=== PATIENT | female | born 1990 | race Caucasian/White ===

== ENCOUNTER → 2016-07-26 | Outpatient (CLI) | payer OTHER ==
--- NOTE | 2016-07-27 16:52 | XR ---
EXAMINATION TYPE: XR knee complete RT DATE OF EXAM: 07/26/2016 9:57 AM COMPARISON: NONE HISTORY: 26 year-old female right knee pain, chondromalacia TECHNIQUE: 3 views FINDINGS: Joint spaces are well-maintained. No acute fracture, subluxation, dislocation. Trace knee joint effus ion may be present. Extensor mechanism is intact. IMPRESSION: No acute osseous abnormality seen. There may be a trace knee joint effusion.
== END | disposition home or self-care (01) ==
LOC: RADXRYALE 08:56
PROVIDERS: ATTEND Physician Assistant Medical
DX: M22.41 Chondromalacia patellae, right knee (principal)

== ENCOUNTER 2017-07-31 10:29 | Outpatient (CLI) | payer OTHER ==
[2017-07-31 11:25] LABS: Appearance,Urine Cloudy (Clear); Bacteria,Urine Many /hpf; Bilirubin,Urine Negative (Negative); Blood,Urine Negative (Negative); Color,Urine Light Yellow; Glucose,Urine (UA) Negative (Negative); Ketones,Urine Negative (Negative); Leukocyte Esterase,Urine Moderate (Negative); Mucus,Urine Rare /hpf; Nitrite,Urine Negative (Negative); PH, Urine 7.5 (5.0-8.0); Protein,Urine Negative (Negative); RBC,Urine 6 /hpf (0-5); Specific Gravity,Urine 1.007 (1.001-1.035); Squamous Epithelial Cell,Urine 30 /hpf (0-4); Urobilinogen,Urine <2.0 mg/dL (<2.0); WBC,Urine 9 /hpf (0-5)
[2017-07-31 11:40] VITALS: BP 118/65; PULSE 92; RESP 18; TEMP 97
--- NOTE | 2017-07-31 20:15 | P.MSEPDOC ---
Presenting Problems - Arrival Data Date of Arrival on Unit: 07/31/17 Time of Arrival on Unit: 10:29 Mode of Transport: Ambulatory - Complaint OB-Reason for Admission/Chief Complaint: Pain Medical History - Information : 2 Para: 0 Term: 0 : 0 Abortions: Spontaneous or Elective: 0 Number of Living Children: 0 - Gestational Age Gestational Age by JOSIE (wks/days): 21 Weeks and 4 Days Review of Systems - Review of Systems Constitutional: No problems Breast: No problems ENT: No problems Cardiovascular: No problems Respiratory: No problems Gastrointestinal: No problems Genitourinary: No problems Musculoskeletal: No problems Neurological: No problems Skin: No problems Vital Signs - Temperature Temperature: 97.0 F Temperature Source: Temporal Artery Scan - Pulse Right Brachial Pulse Rate: 92 - Respirations Respiratory Rate: 18 Oxygen Delivery Method: Room Air - Blood Pressure Right Arm Blood Pressure: 118/65 Blood Pressure Mean: 82 Blood Pressure Source: Automatic Cuff Medical Screen Scoring (Pre) - Cervical Exam Dilation: Exam Deferred Effacement: Exam Deferred Membranes: Intact - Uterine Contractions Frequency: N/A Duration: N/A Intensity: N/A - Maternal Vital Signs Maternal Temperature: N/A Maternal Respirations: N/A - Maternal Trauma Maternal Trauma: N/A - Assessment Heart Rate - NICHD Category: Category I (Normal) = 0 - Total Score Total Score (Pre): 0 - Level of Risk Level of Risk: N/A Physician Notification (Pre) - Physician Notified Physician Notified Date: 07/31/17 Physician Notified Time: 11:35 Physician/Practitioner Notifed:: Dr. Vidal Spoke With: Dr. Vidal New Order Received: Yes - Notification Comment Comment: send order for urine culture, may discharge pt home follow up in office at scheduled appt on August 15 at scheduled appt Medical Screen Scoring (Post) - Cervical Exam Dilation: 1-3 cm = 1 Effacement: More than 50% = 2 Membranes: Intact - Uterine Contractions Frequency: > 5 minutes apart = 1 Duration: > 40 seconds = 2 Intensity: N/A - Maternal Vital Signs Maternal Temperature: N/A Maternal Blood Pressure: N/A Signs of Preeclampsia: N/A - Assessment Heart Rate: 140 Heart Rate - NICHD Category: Category I (Normal) = 0 NST: Reactive Position: N/A Station: N/A - Total Score Total Score (Post): 6 - Post Treatment Level of Risk Post Treatment Level of Risk: Medium (6-9) Physician Notification (Post) - Physician Notified Physician Notified Date: 07/31/17 Physician Notified Time: 10:49 Physician/Practitioner Notified:: Dr. Judge Spoke With: Dr. Judge New Order Received: Yes - Notification Comment Comment: discharge pt home, follow up in office tomorrow at scheduled appt Disposition - Disposition OB Disposition: Triage, Discharge to home, Written follow up instructions reviewed Discharge Date: 07/31/17 Discharge Time: 11:50 I agree with the RN Medical Screening Exam: Yes Risk & Benefit of care provided described in d/c instruction: Yes Diagnosis: UNSPECIFIED ABDOMINAL PAIN
== END 2017-07-31 11:50 | disposition home or self-care (01) ==
LOC: FBPOP 10:29
PROVIDERS: ATTEND Obstetrics & Gynecology
DX: O99.89 Other specified diseases and conditions complicating pregnancy, childbirth and the puerperium (principal); R10.9 Unspecified abdominal pain; Z3A.21 21 weeks gestation of pregnancy
CPT/HCPCS: 59025; 81001; 87086; 99213

== ENCOUNTER 2017-08-03 21:16 | Emergency (ER) | payer OTHER ==
[2017-08-03 21:43] VITALS: BP 119/58; PULSE 99; RESP 18; TEMP 97.4
--- NOTE | 2017-08-03 22:18 | ED ---
General Adult HPI - General Chief complaint: Upper Respiratory Infection Stated complaint: Vomiting Time Seen by Provider: 08/03/17 21:44 Source: patient, RN notes reviewed Mode of arrival: ambulatory Limitations: no limitations - History of Present Illness Initial comments: 27-year-old female presents to the emergency room for a chief complaint of cough times one week. Patient is currently 22 weeks . Patient states she has been coughing up phlegm and has nasal congestion. Patient states she has had low-grade fevers at home. Patient states she also has a sore throat but has been swabbed for strep 3 days ago and was negative and does not want another swab. Patient has been taking Robitussin and benadryl as prescribed by her family doctor. Patient denies shortness of breath or difficulty breathing. Patient denies any related complaints. Patient has no other complaints at this time including shortness of breath, chest pain, abdominal pain, nausea or vomiting, headache, or visual changes. - Related Data Home Medications Medication Instructions Recorded Confirmed Albuterol Inhaler [Ventolin Hfa 1 puff INHALATION Q4H PRN 09/23/13 07/31/17 Inhaler] Pnv No.95/Ferrous Fum/Folic AC 1 each PO DAILY 07/31/17 07/31/17 [ Multivitamin Tablet] Allergies Allergy/AdvReac Type Severity Reaction Status Date / Time methylphenidate HCl Allergy Unknown Verified 08/03/17 21:43 [From Metadate CD] sulfamethoxazole Allergy Rash/Hives Verified 08/03/17 21:43 [From Bactrim] trimethoprim [From Bactrim] Allergy Rash/Hives Verified 08/03/17 21:43 cephalexin [From Keflex] AdvReac Nausea & Verified 08/03/17 21:43 Vomiting Review of Systems ROS Statement: Those systems with pertinent positive or pertinent negative responses have been documented in the HPI. ROS Other: All systems not noted in ROS Statement are negative. Past Medical History Past Medical History: No Reported History Additional Past Medical History / Comment(s): hypoglycemia History of Any Multi-Drug Resistant Organisms: None Reported Past Surgical History: Tonsillectomy Additional Past Surgical History / Comment(s): oral surgery Past Psychological History: Anxiety Smoking Status: Never smoker Past Alcohol Use History: None Reported Past Drug Use History: None Reported General Exam Limitations: no limitations General appearance: alert, in no apparent distress Eye exam: Present: normal appearance, PERRL, EOMI. Absent: scleral icterus, conjunctival injection, periorbital swelling ENT exam: Present: normal exam, normal oropharynx, mucous membranes moist, TM's normal bilaterally Neck exam: Present: normal inspection, full ROM. Absent: tenderness, meningismus, lymphadenopathy, thyromegaly Respiratory exam: Present: normal lung sounds bilaterally. Absent: respiratory distress, wheezes, rales, rhonchi, stridor Cardiovascular Exam: Present: regular rate, normal rhythm, normal heart sounds. Absent: systolic murmur, diastolic murmur, rubs, gallop, clicks Course Vital Signs 08/03/17 21:40 Temperature 97.4 F L Pulse Rate 99 Respiratory 18 Rate Blood Pressure 119/58 O2 Sat by Pulse 99 Oximetry Medical Decision Making - Medical Decision Making 27-year-old female presents to the emergency department for a chief complaint of productive cough for one week. patient is 22 weeks . Patient also has a sore throat but was already swabbed for strep which was negative. She does not want to be swabbed again. No fevers in the emergency department. On exam lungs are clear. Throat is nonerythematous. Patient appears sightly congested. No redness or swelling in the facial sinuses. Patient has been taking Robitussin and Benadryl. Patient is upset because she is missing work. X-ray was ordered of the chest which shows no acute abnormalities or pneumonias. Patient was shielded. Patient was educated that this is likely an upper respiratory viral infection which may last for up to another week. Patient is upset we are not giving her an antibiotic, as her other doctor also did not give her one. However, at this point antibiotics are not indicated. I explained to her that we are trying to prevent exposure to the fetus of unnecessary medications and she is appreciative of that. patient will continue benadryl and robitussin given by another provider. Patient agrees to follow up with COLOR SEPARATION PHOTOGRAPHER. She will return to the emergency Department if she has any worsening symptoms or high fevers. Disposition Clinical Impression: Upper respiratory infection Disposition: HOME SELF-CARE Condition: Good Instructions: Upper Respiratory Infection (ED) Additional Instructions: Please take medications given to by her COLOR SEPARATION PHOTOGRAPHER. Please return to the emergency department if symptoms worsen or you develop high fevers. Otherwise follow-up with [facility] SEPARATION PHOTOGRAPHER. Is patient prescribed a controlled substance at d/c from ED?: No Referrals: Gerg Grewal DO [Primary Care Provider] - 1-2 days Time of Disposition: 22:42
--- NOTE | 2017-08-03 22:24 | XR ---
EXAMINATION TYPE: XR chest 2V DATE OF EXAM: 08/03/2017 COMPARISON: NONE HISTORY: Cough and congestion TECHNIQUE: Frontal and lateral views of the chest are obtained. FINDINGS: Heart and mediastinum are normal. Lungs are clear. Diaphragm is normal. Bony thorax appear s normal. IMPRESSION: Normal chest
== END 2017-08-03 22:49 | disposition home or self-care (01) ==
LOC: EC 21:16
DX: O99.512 Diseases of the respiratory system complicating pregnancy, second trimester (principal); J06.9 Acute upper respiratory infection, unspecified; Z3A.22 22 weeks gestation of pregnancy; Z88.1 Allergy status to other antibiotic agents; Z88.2 Allergy status to sulfonamides; Z88.8 Allergy status to other drugs, medicaments and biological substances
CPT/HCPCS: 71046; 99283

== ENCOUNTER 2017-10-12 15:18 | Outpatient (CLI) | payer OTHER ==
[2017-10-12 15:52] VITALS: BP 125/70; PULSE 91; RESP 17; TEMP 97.8
[2017-10-12 16:04] LABS: Appearance,Urine Cloudy (Clear); Bilirubin,Urine Negative (Negative); Blood,Urine Negative (Negative); Color,Urine Light Yellow; Glucose,Urine (UA) Negative (Negative); Ketones,Urine Negative (Negative); Leukocyte Esterase,Urine Negative (Negative); Nitrite,Urine Negative (Negative); PH, Urine 7.5 (5.0-8.0); Protein,Urine Negative (Negative); RBC,Urine 1 /hpf (0-5); Specific Gravity,Urine 1.006 (1.001-1.035); Squamous Epithelial Cell,Urine 18 /hpf (0-4); Urobilinogen,Urine <2.0 mg/dL (<2.0); WBC,Urine <1 /hpf (0-5)
--- NOTE | 2017-10-13 08:31 | P.MSEPDOC ---
Presenting Problems - Arrival Data Date of Arrival on Unit: 10/12/17 Time of Arrival on Unit: 15:18 Mode of Transport: Ambulatory - Complaint OB-Reason for Admission/Chief Complaint: Rule Out PROM Comment: pt here with c/o large gush of fluid after sneezing around 1430 today, pt. unsure if it was urine or rom, pt reports + fm, denies vb, denies complications with. , reports occasional cramping in lower abd late began today, pt unsure if they. are contractions reporting they only last a few seconds when they occur, pt denies. intercourse in last 24 hours Medical History - Information : 2 Para: 0 Term: 0 : 0 Abortions: Spontaneous or Elective: 1 Number of Living Children: 0 - Gestational Age Gestational Age by JOSIE (wks/days): 32 Weeks and 0 Days - History Complications: Smoker Review of Systems - Review of Systems Constitutional: No problems Breast: No problems ENT: No problems Cardiovascular: No problems Respiratory: No problems Gastrointestinal: No problems Genitourinary: No problems Musculoskeletal: No problems Neurological: No problems Skin: No problems Vital Signs - Temperature Temperature: 97.8 F Temperature Source: Temporal Artery Scan - Pulse Right Brachial Pulse Rate: 91 Pulse Assessment Method: Automatic Cuff - Respirations Respiratory Rate: 17 Oxygen Delivery Method: Room Air O2 Sat by Pulse Oximetry: 97 - Blood Pressure Right Arm Blood Pressure: 125/70 Blood Pressure Mean: 88 Blood Pressure Source: Automatic Cuff Medical Screen Scoring (Pre) - Cervical Exam Dilation: 0 cm = 0 Effacement: Exam Deferred Membranes: Intact - Uterine Contractions Frequency: N/A Duration: N/A Intensity: N/A - Maternal Vital Signs Maternal Temperature: N/A Maternal Blood Pressure: N/A Signs of Preeclampsia: N/A Maternal Respirations: N/A - Pain Assessment Pain Location and Character: Abdomen Pain Scale Used: Numeric (1 - 10) Pain Intensity: 4 Pain Management Goal: 3 Pain Description: *Acute, Aching, Crushing Pain Radiation Location: none Pain Frequency: Occasional Pain Duration: 1 Pain Duration Units: Hours Pain Behavior: None Exhibited Pain Aggravating Factors: None - Maternal Trauma Maternal Trauma: N/A - Assessment Baseline FHR: 130 Heart Rate - NICHD Category: Category I (Normal) = 0 NST: Reactive Position: N/A Station: N/A - Total Score Total Score (Pre): 0 - Level of Risk Level of Risk: Low (0-5) Physician Notification (Pre) - Physician Notified Physician Notified Date: 10/12/17 Physician Notified Time: 16:12 Physician/Practitioner Notifed:: Dr Joe Spoke With: Dr Joe New Order Received: Yes (discharge home) - Notification Comment Comment: amnisure results -, u/a results -, pt reports decrease in pain at this time Disposition - Disposition OB Disposition: Discharge to home, Written follow up instructions reviewed Discharge Date: 10/12/17 Discharge Time: 16:20 I agree with the RN Medical Screening Exam: Yes Risk & Benefit of care provided described in d/c instruction: Yes Diagnosis: FALSE LABOR BEFORE 37 COMPLETED WEEKS OF GEST, THIRD TRI
== END 2017-10-12 16:20 | disposition home or self-care (01) ==
LOC: FBPOP 15:18
PROVIDERS: ATTEND Obstetrics & Gynecology
DX: O47.03 False labor before 37 completed weeks of gestation, third trimester (principal); O99.333 Smoking (tobacco) complicating pregnancy, third trimester; Z3A.32 32 weeks gestation of pregnancy
CPT/HCPCS: 81001

== ENCOUNTER 2017-11-21 05:55 | Inpatient (IN) | payer OTHER ==
[2017-11-21] MEDS ORDERED: AMPICILLIN 2,000 MG in SODIUM CHLORIDE 0.9% 100 ML IVPB STA (06:26)
[2017-11-21] MEDS ORDERED: METHYLERGONOVINE 0.2 MG/ML 1 ML AMP IM PRN (06:26)
[2017-11-21] MEDS ORDERED: CARBOPROST TROMETHAMINE 250 MCG/ML 1 ML AMP IM PRN (06:26)
[2017-11-21] MEDS ORDERED: TERBUTALINE 1 MG/ML VIAL SQ PRN (06:26)
[2017-11-21] MEDS ORDERED: LIDOCAINE 1% (PF) 10 MG/ML (30 ML SDV) SQ PRN (06:26)
[2017-11-21] MEDS ORDERED: OXYTOCIN 10 UNIT/ML 1 ML VIAL IM PRN (06:26)
[2017-11-21] MEDS ORDERED: OXYTOCIN 20 UNITS/1000 ML NS 1,000 ML IV SCH (06:26)
[2017-11-21] MEDS: LACTATED RINGERS 1,000 ML IV SCH ×4 (06:30→21:54)
[2017-11-21 06:33] VITALS: BMI 27.4
[2017-11-21 07:04] LABS: Basophils # (A) 0.1 k/uL (0-0.2); Basophils % (A) 1 %; Eosinophils # (A) 0.2 k/uL (0-0.7); Eosinophils % (A) 2 %; HCT 35.4 % (34.0-46.0); HGB 11.2 gm/dL (11.4-16.0); Lymphocytes # (A) 2.4 k/uL (1.0-4.8); Lymphocytes % (A) 23 %; MCHC 31.6 g/dL (31.0-37.0); MCV 88.5 fL (80.0-100.0); Mean Platelet Volume 9.9; Monocytes # (A) 0.8 k/uL (0-1.0); Monocytes % (A) 7 %; Neutrophils # (A) 6.8 k/uL (1.3-7.7); Neutrophils % (A) 65 %; Platelet Count 214 k/uL (150-450); RDW 13.8 % (11.5-15.5); WBC 10.4 k/uL (3.8-10.6)
[2017-11-21] MEDS: AMPICILLIN 1,000 MG in SODIUM CHLORIDE 0.9% 50 ML IVPB SCH ×3 (10:56→19:17)
[2017-11-21] MEDS: BUTORPHANOL 1 MG/ML 1 ML VIAL IV PRN ×2 (12:33→15:17)
--- NOTE | 2017-11-21 12:50 | P.HPOB ---
History of Present Illness H&P Date: 11/21/17 Chief Complaint: Induction of labor 27-year-old presents at 37 weeks and 5 days for induction of labor due to cholestasis of . Her cervix is 1-2 cm dilated, 70% effaced, -2 station. She is harsha irregularly. heart tones were in 130-135 with moderate variability and reactive. Review of Systems All systems: negative Constitutional: Denies chills, Denies fever Eyes: denies blurred vision, denies pain Ears, nose, mouth and throat: Denies headache, Denies sore throat Cardiovascular: Denies chest pain, Denies shortness of breath Respiratory: Denies cough Gastrointestinal: Denies abdominal pain, Denies diarrhea, Denies nausea, Denies vomiting Genitourinary: Denies dysuria, Denies hematuria Musculoskeletal: Denies myalgias Integumentary: Denies pruritus, Denies rash Neurological: Denies numbness, Denies weakness Psychiatric: Denies anxiety, Denies depression Endocrine: Denies fatigue, Denies weight change Past Medical History Past Medical History: No Reported History Additional Past Medical History / Comment(s): hypoglycemia, obstetrics history: This is her first . She's had care with me since the first trimester. She weaned her for Adderall in the first couple weeks of her . She was diagnosed with cholestasis of at 32 weeks gestation. History of Any Multi-Drug Resistant Organisms: None Reported Past Surgical History: Tonsillectomy Additional Past Surgical History / Comment(s): oral surgery Past Anesthesia/Blood Transfusion Reactions: No Reported Reaction Past Psychological History: Anxiety Smoking Status: Never smoker Past Alcohol Use History: None Reported Past Drug Use History: None Reported - Past Family History Mother Family Medical History: Asthma, Thyroid Disorder Medications and Allergies Home Medications Medication Instructions Recorded Confirmed Type Pnv No.95/Ferrous Fum/Folic AC 1 tab PO DAILY 11/04/17 11/21/17 History [ Multivitamin Tablet] Ranitidine HCl [Zantac] 150 mg PO BID 11/04/17 11/21/17 History Ursodiol 300 mg PO BID 11/04/17 11/21/17 History diphenhydrAMINE [Benadryl] 25 mg PO DIRECTED 11/04/17 11/21/17 History Allergies Allergy/AdvReac Type Severity Reaction Status Date / Time methylphenidate HCl Allergy Unknown Verified 11/21/17 06:26 [From Metadate CD] sulfamethoxazole Allergy Rash/Hives Verified 11/21/17 06:26 [From Bactrim] trimethoprim [From Bactrim] Allergy Rash/Hives Verified 11/21/17 06:26 cephalexin [From Keflex] AdvReac Nausea & Verified 11/21/17 06:26 Vomiting Exam Osteopathic Statement: *. No significant issues noted on an osteopathic structural exam other than those noted in the History and Physical/Consult. Vital Signs Temp Pulse Resp BP Pulse Ox 11/21/17 06:27 97.6 F 83 16 142/96 98 Intake and Output 11/20/17 11/21/17 11/21/17 22:59 06:59 14:59 Other: Weight 68.039 kg Heart: Regular rate and rhythm Lungs: Clear to auscultation bilaterally Abdomen: Soft, nontender Extremities: Negative Homans sign Results Result Diagrams: 11/21/17 06:25 Abnormal Lab Results - Last 24 Hours (Table) 11/21/17 Range/Units 06:25 Hgb 11.2 L (11.4-16.0) gm/dL Assessment and Plan (1) Normal labor Current Visit: Yes Status: Acute Code(s): O80 - ENCOUNTER FOR FULL-TERM UNCOMPLICATED DELIVERY; Z37.9 - OUTCOME OF DELIVERY, UNSPECIFIED SNOMED Code(s ): 81001517 Plan: 1. Induction of labor with amniotomy and Pitocin 2. Anticipate normal vaginal delivery 3. Antibiotics for GBS prophylaxis
[2017-11-21] MEDS ORDERED: fentaNYL (PF) 50 MCG/ML 5 ML AMP ONE (17:04)
[2017-11-21] MEDS ORDERED: SODIUM CHLORIDE 0.9% 100 ML BAG ONE (17:04)
[2017-11-21] MEDS ORDERED: ROPIVACAINE 5MG/ML 20ML VIAL ONE (17:04)
[2017-11-21] MEDS ORDERED: ROPIVACAINE 100 MG, fentaNYL (PF) 200 MCG in SODIUM CHLORIDE 0.9% 76 ML EPIDURAL ONE (18:00)
[2017-11-22] MEDS ORDERED: diphenhydrAMINE 25 MG CAP PO PRN (01:14)
[2017-11-22] MEDS ORDERED: SIMETHICONE 80 MG CHEWABLE PO PRN (01:14)
[2017-11-22] MEDS ORDERED: ACETAMINOPHEN TAB 325 MG TAB PO PRN (01:14)
[2017-11-22] MEDS ORDERED: HYDROcodone/APAP 5-325MG 1 EACH TAB PO PRN (01:14)
[2017-11-22] MEDS ORDERED: BENZOCAINE/MENTHOL SPRAY 1 GM/SPRAY AEROSOL TOPICAL PRN (01:14)
[2017-11-22] MEDS ORDERED: LANOLIN CREAM 5 GM TUBE TOPICAL PRN (01:14)
[2017-11-22] MEDS ORDERED: diphenhydrAMINE 50 MG CAP PO PRN (01:14)
[2017-11-22] MEDS ORDERED: ZOLPIDEM 5 MG TAB PO PRN (01:14)
[2017-11-22] MEDS ORDERED: HYDROCORTISONE 2.5% RECTAL CREAM 30 GM TUBE RECTAL PRN (01:14)
[2017-11-22] MEDS ORDERED: WITCH HAZEL 1 EACH MED..PAD TOPICAL PRN (01:14)
[2017-11-22] MEDS ORDERED: diphenhydrAMINE 50 MG/ML 1 ML VIAL IVP PRN ×2 (01:14)
[2017-11-22] MEDS ORDERED: OXYTOCIN 20 UNITS/1000 ML NS 1,000 ML IV SCH (01:15)
--- NOTE | 2017-11-22 01:19 | P.PROBDLV ---
Vaginal Delivery Note - . Vaginal Delivery Note: 27-year-old presents at 37 weeks and 5 days for induction of labor due to cholestasis of . Her cervix was 1-2 cm dilated, 80% effaced, and -2 station. She was harsha irregularly. heart tones 130-135 with moderate variability and reactive. Amniotomy was performed at 7:45 AM, clear fluid noted. Pitocin had been started. Her cervix changed slowly through the day. She did get an epidural around 5 PM, when she was 4 cm dilated. Her cervix was completely dilated at 12:17 AM. She pushed, and delivered a viable male infant over intact perineum under epidural anesthesia at 12:44 AM. Head delivered OA, anterior shoulder delivered gentle downward guidance followed by posterior shoulder and rest of body. Nose and mouth bulb suctioned, cord clamped and cut, infant placed mother's abdomen. Apgars 9, 9, weight 7 lbs. 2 oz. Placenta delivered spontaneously, intact with three-vessel cord. Vagina, cervix, perineum inspected. Second-degree midline laceration was repaired with 2-0 Vicryl. Estimated blood loss 200 mL. Mother and baby in stable condition.
[2017-11-22] MEDS: IBUPROFEN 600 MG TAB PO PRN ×4 (02:05→20:15)
[2017-11-22] MEDS: AMPICILLIN 1,000 MG in SODIUM CHLORIDE 0.9% 50 ML IVPB SCH (02:10)
[2017-11-22] MEDS ORDERED: METHYLERGONOVINE 0.2 MG/ML 1 ML AMP IM PRN (04:58)
[2017-11-22] MEDS ORDERED: TERBUTALINE 1 MG/ML VIAL SQ PRN (04:58)
[2017-11-22] MEDS: SENNOSIDES-DOCUSATE SODIUM 1 EACH TAB PO SCH ×2 (07:46→20:15)
[2017-11-22 09:16] LABS: HCT 28.2 % (34.0-46.0); MCH 28.8 pg (25.0-35.0); MCHC 32.7 g/dL (31.0-37.0); Mean Platelet Volume 10.2; Platelet Count 190 k/uL (150-450); RBC 3.21 m/uL (3.80-5.40); RDW 13.7 % (11.5-15.5)
[2017-11-22 09:18] LABS: HGB 9.2 gm/dL (11.4-16.0)
[2017-11-22] MEDS: URSODIOL 300 MG CAP PO SCH (19:54)
[2017-11-23 08:19] VITALS: BP 135/78; PULSE 91; RESP 16; TEMP 98.1
[2017-11-23] MEDS: SENNOSIDES-DOCUSATE SODIUM 1 EACH TAB PO SCH (08:25)
[2017-11-23] MEDS: URSODIOL 300 MG CAP PO SCH (08:25)
--- NOTE | 2017-11-26 08:19 | P.DS ---
Providers Date of admission: 11/21/17 05:55 Expected date of discharge: 11/23/17 Attending physician: Nasra Vidal Primary care physician: Stated None - Discharge Diagnosis(es) (1) Normal labor Status: Resolved (2) Normal vaginal delivery Status: Acute Hospital Course: Patient presented for induction of labor. She underwent a normal vaginal delivery. she did have some uterine atony and vaginal bleeding. She received 1 dose of Methergine. Her hemoglobin went from 11.2-9.2. Her anemia was asymptomatic. She will be discharged home day #1 in stable condition to follow-up with me in 6 weeks. Patient Condition at Discharge: Good Plan - Discharge Summary New Discharge Prescriptions: New Ibuprofen [Motrin] 600 mg PO Q6HR PRN #30 tab PRN Reason: Mild Pain Or Fever >= 100.5 No Action Ursodiol 300 mg PO BID Ranitidine HCl [Zantac] 150 mg PO BID Pnv No.95/Ferrous Fum/Folic AC [ Multivitamin Tablet] 1 tab PO DAILY diphenhydrAMINE [Benadryl] 25 mg PO DIRECTED Discharge Medication List Pnv No.95/Ferrous Fum/Folic AC [ Multivitamin Tablet] 1 tab PO DAILY [History] Ranitidine HCl [Zantac] 150 mg PO BID 11/04/17 [History] Ursodiol 300 mg PO BID 11/04/17 [History] diphenhydrAMINE [Benadryl] 25 mg PO DIRECTED 11/04/17 [History] Ibuprofen [Motrin] 600 mg PO Q6HR PRN #30 tab 11/23/17 [Rx] Follow up Appointment(s)/Referral(s): Nasra Vidal DO [Doctor of Osteopathic Medicine] - 6 Weeks Discharge Disposition: HOME SELF-CARE
== END 2017-11-23 13:42 | disposition home or self-care (01) | DRG 775 ==
LOC: 4FBP 05:55
PROVIDERS: ADMIT Obstetrics & Gynecology; ATTEND Obstetrics & Gynecology
PROC: 10E0XZZ Delivery of Products of Conception, External Approach (ICD-10-PCS; principal; 2017-11-22)
PROC: 0KQM0ZZ Repair Perineum Muscle, Open Approach (ICD-10-PCS; 2017-11-22)
PROC: 3E033VJ Introduction of Other Hormone into Peripheral Vein, Percutaneous Approach (ICD-10-PCS; 2017-11-22)
PROC: 10907ZC Drainage of Amniotic Fluid, Therapeutic from Products of Conception, Via Natural or Artificial Opening (ICD-10-PCS; 2017-11-22)
PROC: 00HU33Z Insertion of Infusion Device into Spinal Canal, Percutaneous Approach (ICD-10-PCS; 2017-11-22)
PROC: 3E0R3BZ Introduction of Anesthetic Agent into Spinal Canal, Percutaneous Approach (ICD-10-PCS; 2017-11-22)
DX: O26.62 Liver and biliary tract disorders in childbirth (principal); K83.1 Obstruction of bile duct; Z37.0 Single live birth; O99.02 Anemia complicating childbirth; O62.2 Other uterine inertia; O70.1 Second degree perineal laceration during delivery; O99.344 Other mental disorders complicating childbirth; F41.9 Anxiety disorder, unspecified; Z3A.37 37 weeks gestation of pregnancy; Z82.5 Family history of asthma and other chronic lower respiratory diseases; Z83.49 Family history of other endocrine, nutritional and metabolic diseases; Z88.1 Allergy status to other antibiotic agents; Z88.2 Allergy status to sulfonamides; Z88.8 Allergy status to other drugs, medicaments and biological substances
CPT/HCPCS: 85025; 85027

== ENCOUNTER 2017-11-27 13:47 | Emergency (ER) | payer OTHER ==
[2017-11-27 14:03] VITALS: RESP 18
--- NOTE | 2017-11-27 14:43 | ED ---
Extremity Problem HPI - General Chief complaint: Extremity Problem,Nontraumatic Stated complaint: poss blood clot Time Seen by Provider: 11/27/17 14:11 Source: patient, RN notes reviewed Mode of arrival: ambulatory Limitations: no limitations - History of Present Illness Initial comments: This is a 27-year-old female who presents to the emergency department with chief complaint of possible blood clot. Patient states that she had a vaginal delivery last . She states that since that time she has been experiencing sharp pains in both of her calves. She states that this is normal for her. However, she states that she is also experiencing a sharp stabbing pain that comes and goes in her left inner thigh. She states that there is an area of tenderness. She states that the pain lasts anywhere from 2 minutes at a time to 5 minutes at a time. She states that she contacted her PATIENT TRANSPORTATION DRIVER's office and they suggested she reports the emergency department for an ultrasound to rule out blood clot. Patient denies any recent fevers or chills, chest pain shortness of breath, abdominal pain, nausea or vomiting. Patient is not taking control as she is breast-feeding. - Related Data Home Medications Medication Instructions Recorded Confirmed Pnv No.95/Ferrous Fum/Folic AC 1 tab PO DAILY 11/04/17 11/21/17 [ Multivitamin Tablet] Ranitidine HCl [Zantac] 150 mg PO BID 11/04/17 11/21/17 Ursodiol 300 mg PO BID 11/04/17 11/21/17 diphenhydrAMINE [Benadryl] 25 mg PO DIRECTED 11/04/17 11/21/17 Previous Rx's Medication Instructions Recorded Ibuprofen [Motrin] 600 mg PO Q6HR PRN #30 tab 11/23/17 Allergies Allergy/AdvReac Type Severity Reaction Status Date / Time methylphenidate HCl Allergy Unknown Verified 11/27/17 14:03 [From Metadate CD] sulfamethoxazole Allergy Rash/Hives Verified 11/27/17 14:03 [From Bactrim] trimethoprim [From Bactrim] Allergy Rash/Hives Verified 11/27/17 14:03 cephalexin [From Keflex] AdvReac Nausea & Verified 11/27/17 14:03 Vomiting Review of Systems ROS Statement: Those systems with pertinent positive or pertinent negative responses have been documented in the HPI. ROS Other: All systems not noted in ROS Statement are negative. Past Medical History Past Medical History: No Reported History Additional Past Medical History / Comment(s): hypoglycemia, obstetrics history: This is her first . She's had care with me since the first trimester. She weaned her for Adderall in the first couple weeks of her . She was diagnosed with cholestasis of at 32 weeks gestation. History of Any Multi-Drug Resistant Organisms: None Reported Past Surgical History: Tonsillectomy Additional Past Surgical History / Comment(s): oral surgery Past Anesthesia/Blood Transfusion Reactions: No Reported Reaction Past Psychological History: Anxiety Smoking Status: Never smoker Past Alcohol Use History: None Reported Past Drug Use History: None Reported - Past Family History Mother Family Medical History: Asthma, Thyroid Disorder General Exam - General Exam Comments Initial Comments: General: Awake and alert, well-developed; in no apparent distress. HEENT: Head atraumatic, normocephalic. Pupils are equal, round and reactive to light. Extraocular movements intact. Oropharynx moist without erythema or exudate. Neck: Supple. Normal ROM. Cardiovascular: Regular rate and rhythm. No murmurs, rubs or gallops. Chest symmetrical. Respiratory: Lungs clear to auscultation bilaterally. No wheezes, rales or rhonchi. Normal respiratory effort with no use of accessory muscles. Musculoskeletal: Normal ROM, no tenderness bilateral upper and lower extremities. Negative Homans sign. No calf tenderness bilaterally. No swelling, erythema or ecchymosis of bilateral lower extremities. Ambulating normally. Skin: Regal, warm and dry without rashes or lesions. Neurological: Alert and oriented x3. CN II-XII grossly intact. Speech is fluent and answers are appropriate. No focal neuro deficits. Psychiatric: Normal mood and affect. No overt signs of depression or anxiety noted. Limitations: no limitations Course Vital Signs 11/27/17 11/27/17 13:59 15:45 Temperature 98.0 F 97.1 F L Pulse Rate 98 85 Respiratory 18 18 Rate Blood Pressure 128/72 120/67 O2 Sat by Pulse 100 100 Oximetry Medical Decision Making - Medical Decision Making This is a 27-year-old female who presents to the emergency department with chief complaint of possible blood clot. Patient's PATIENT TRANSPORTATION DRIVER office recommended she come to the emergency department for evaluation of possible blood clot. Patient had vaginal delivery last and has been having a pain in her left inner thigh. Ultrasound was obtained which revealed no evidence for an acute DVT. Her vital signs are stable and she is in no acute distress. She will be discharged home at this time. She is in agreement and voices understanding. All questions answered. - Radiology Data Radiology results: report reviewed Ultrasound venous Doppler duplex left lower extremity impression: No evident deep venous thrombosis at or above the left knee. Disposition Clinical Impression: Right leg pain Disposition: HOME SELF-CARE Condition: Good Instructions: Leg Pain (ED) Additional Instructions: Please follow up with primary care provider within 1-2 days. Return to emergency department if symptoms should worsen or any concerns arise. Is patient prescribed a controlled substance at d/c from ED?: No Referrals: Greg Grewal DO [Primary Care Provider] - 1-2 days Time of Disposition: 15:30
--- NOTE | 2017-11-27 15:24 | US ---
EXAMINATION TYPE: US venous doppler duplex LE LT DATE OF EXAM: 11/27/2017 3:10 PM COMPARISON: NONE CLINICAL HISTORY: Pain. SIDE PERFORMED: Left TECHNIQUE: The lower extremity deep venous system is examined utilizing real time linear array sonog elizabeth with graded compression, doppler sonography and color-flow sonography. VESSELS IMAGED: External Iliac Vein (EIV) Common Femoral Vein Deep Femoral Vein Greater Saphenous Vein * Femoral Vein Popliteal Vein Small Saphenous Vein * Proximal Calf Veins (* superficial vessels) There is normal flow, compressibility, vascular waveforms. Left Leg: Negative for DVT IMPRESSION: No evident deep venous thrombosis at or above the left knee
[2017-11-27 15:48] VITALS: BP 120/67; PULSE 85; TEMP 97.1
== END 2017-11-27 15:45 | disposition home or self-care (01) ==
LOC: EC 13:47
DX: M79.604 Pain in right leg (principal); M79.652 Pain in left thigh; M79.661 Pain in right lower leg; M79.662 Pain in left lower leg; Z88.1 Allergy status to other antibiotic agents; Z88.2 Allergy status to sulfonamides; Z88.8 Allergy status to other drugs, medicaments and biological substances; Z79.899 Other long term (current) drug therapy
CPT/HCPCS: 99283

== ENCOUNTER → 2018-11-21 | Outpatient (CLI) | payer OTHER ==
--- NOTE | 2018-11-21 09:03 | US ---
EXAMINATION TYPE: US abdomen limited DATE OF EXAM: 11/21/2018 COMPARISON: CT 2012 CLINICAL HISTORY: R945 ABN LIVER FUNCTIONS. EXAM MEASUREMENTS: Liver Length: 13.8 cm Gallbladder Wall: 0.1 cm CBD: 0.2 cm Right Kidney: 10.3 x 4.4 x 3.7 cm Pancreas: wnl Liver: wnl Gallbladder: wnl Evidence for sonographic Nunes's sign: No CBD: wnl Right Kidney: wnl IMPRESSION: No suspicious intrahepatic mass or intrahepatic ductal dilatation.
== END | disposition home or self-care (01) ==
LOC: RADUSWWP 08:24
PROVIDERS: ATTEND Family Medicine
DX: R94.5 Abnormal results of liver function studies (principal)
CPT/HCPCS: 76705

== ENCOUNTER 2018-12-21 17:01 | Emergency (ER) | payer OTHER ==
[2018-12-21 17:35] LABS: Appearance,Urine Clear (Clear); Bilirubin,Urine Negative (Negative); Blood,Urine Small (Negative); Color,Urine Colorless; Glucose,Urine (UA) Negative (Negative); Ketones,Urine Negative (Negative); Leukocyte Esterase,Urine Negative (Negative); Nitrite,Urine Negative (Negative); PH, Urine 6.5 (5.0-8.0); Protein,Urine Negative (Negative); RBC,Urine <1 /hpf (0-5); Specific Gravity,Urine 1.001 (1.001-1.035); Squamous Epithelial Cell,Urine <1 /hpf (0-4); Urobilinogen,Urine <2.0 mg/dL (<2.0)
[2018-12-21] MEDS ORDERED: KETOROLAC 30 MG/ML 1 ML VIAL IVP ONE (17:43)
[2018-12-21] MEDS ORDERED: SODIUM CHLORIDE 0.9% 1,000 ML IV ONE (17:43)
--- NOTE | 2018-12-21 17:43 | ED ---
Female Urogenital HPI - General Chief complaint: Urogenital Stated complaint: Kidney pain, blood in urine Time Seen by Provider: 12/21/18 17:20 Source: patient Mode of arrival: ambulatory Limitations: no limitations - History of Present Illness Initial comments: Steffanie is a previously healthy 28-year-old female who presents to the ER today for evaluation of hematuria and left-sided flank pain. Patient reports that she woke this morning she had a single episode of hematuria, she didn't have any dysuria or urinary frequency with this. She states she's been drinking plenty of water, she states that again at work she had another episode of hematuria and then noted stabbing pain in her left flank. Pain was severe sharp last approximately 15 minutes and resolved prior to arrival. Patient no history of kidney stones. She does have a history of recurrent urinary tract infections but states that this doesn't seem like that at all. Patient states her menses ended yesterday, she has no concern for she's not been sexually active. She denies any vaginal discharge or concern for sexual transmitted infection. Last Menstrual Period: 12/13/18 - Related Data Home Medications Medication Instructions Recorded Confirmed Albuterol Sulfate [Ventolin HFA] 1 - 2 puff INHALATION RT-Q6H PRN 12/21/18 12/21/18 Dextroamphetamine/Amphetamine 30 mg PO BID 12/21/18 12/21/18 [Adderall] Loratadine [Claritin] 10 mg PO DAILY 12/21/18 12/21/18 Vienva 0.1/0.2mg 1 tab PO DAILY 12/21/18 12/21/18 Allergies Allergy/AdvReac Type Severity Reaction Status Date / Time methylphenidate HCl Allergy Unknown Verified 12/21/18 17:46 [From Metadate CD] sulfamethoxazole Allergy Rash/Hives Verified 12/21/18 17:46 [From Bactrim] trimethoprim [From Bactrim] Allergy Rash/Hives Verified 12/21/18 17:46 cephalexin [From Keflex] AdvReac Nausea & Verified 12/21/18 17:46 Vomiting Review of Systems ROS Statement: Those systems with pertinent positive or pertinent negative responses have been documented in the HPI. ROS Other: All systems not noted in ROS Statement are negative. Past Medical History Past Medical History: No Reported History Additional Past Medical History / Comment(s): hypoglycemia, elevated liver enzymes History of Any Multi-Drug Resistant Organisms: None Reported Past Surgical History: Tonsillectomy Additional Past Surgical History / Comment(s): oral surgery Past Anesthesia/Blood Transfusion Reactions: No Reported Reaction Past Psychological History: Anxiety Smoking Status: Current every day smoker Past Alcohol Use History: Daily Past Drug Use History: None Reported - Past Family History Mother Family Medical History: Asthma, Thyroid Disorder General Exam - General Exam Comments Initial Comments: Physical Exam GENERAL: Patient is well-developed and well-nourished. Patient is nontoxic and well- hydrated and is in no distress. HENT: Normocephalic, Atraumatic. EYES: PERRL, EOMI PULMONARY: Unlabored respirations. CARDIOVASCULAR: There is a regular rate and rhythm without any murmurs gallops or rubs. ABDOMEN: Soft and nontender with normal bowel sounds. No tenderness to percussion of flank SKIN: Skin is clear with no lesions or rashes and otherwise unremarkable. : Deferred NEUROLOGIC: Patient is alert and oriented x3. Moving all extremities spontaneously MUSCULOSKELETAL: Normal extremities with adequate strength and full range of motion. No lower extremity swelling or edema. No calf tenderness. PSYCHIATRIC: Normal psychiatric evaluation. Limitations: no limitations Course Vital Signs 12/21/18 12/21/18 17:10 20:13 Temperature 97.8 F 98.2 F Pulse Rate 111 H 100 Respiratory 16 18 Rate Blood Pressure 127/76 128/77 O2 Sat by Pulse 100 98 Oximetry Medical Decision Making - Medical Decision Making Patient was seen and evaluated, history obtained from patient 28-year-old healthy female with episode of left-sided flank pain and hematuria, pain is now resolved Urinalysis with scant hematuria no signs of infection KUB unremarkable Renal ultrasound was ordered and obtained however patient was eager for discharge home and she needs to get to her child. Patient's been asymptomatic while in the emergency department is comfortable with plan for discharge home and outpatient follow-up with primary care. - Lab Data Result diagrams: 12/21/18 17:55 12/21/18 17:55 Lab Results 12/21/18 12/21/18 12/21/18 Range/Units 17:23 17:23 17:55 WBC (3.8-10.6) k/uL RBC (3.80-5.40) m/uL Hgb (11.4-16.0) gm/dL Hct (34.0-46.0) % MCV (80.0-100.0) fL MCH (25.0-35.0) pg MCHC (31.0-37.0) g/dL RDW (11.5-15.5) % Plt Count (150-450) k/uL Neutrophils % % Lymphocytes % % Monocytes % % Eosinophils % % Basophils % % Neutrophils # (1.3-7.7) k/uL Lymphocytes # (1.0-4.8) k/uL Monocytes # (0-1.0) k/uL Eosinophils # (0-0.7) k/uL Basophils # (0-0.2) k/uL Sodium 138 (137-145) mmol/L Potassium 4.3 (3.5-5.1) mmol/L Chloride 102 (98-107) mmol/L Carbon Dioxide 28 (22-30) mmol/L Anion Gap 8 mmol/L BUN 19 H (7-17) mg/dL Creatinine 0.56 (0.52-1.04) mg/dL Est GFR (CKD-EPI)AfAm >90 (>60 ml/min/1.73 sqM) Est GFR (CKD-EPI)NonAf >90 (>60 ml/min/1.73 sqM) Glucose 87 (74-99) mg/dL Calcium 9.6 (8.4-10.2) mg/dL Urine Color Colorless Urine Appearance Clear (Clear) Urine pH 6.5 (5.0-8.0) Ur Specific [place] 1.001 (1.001-1.035) Urine Protein Negative (Negative) Urine Glucose (UA) Negative (Negative) Urine Ketones Negative (Negative) Urine Blood Small H (Negative) Urine Nitrite Negative (Negative) Urine Bilirubin Negative (Negative) Urine Urobilinogen <2.0 (<2.0) mg/dL Ur Leukocyte Esterase Negative (Negative) Urine RBC <1 (0-5) /hpf Ur Squamous Epith Cells <1 (0-4) /hpf Urine HCG, Qual Not Detected (Not Detectd) 12/21/18 Range/Units 17:55 WBC 7.6 (3.8-10.6) k/uL RBC 4.86 (3.80-5.40) m/uL Hgb 13.9 (11.4-16.0) gm/dL Hct 42.2 (34.0-46.0) % MCV 86.9 (80.0-100.0) fL MCH 28.7 (25.0-35.0) pg MCHC 33.0 (31.0-37.0) g/dL RDW 13.0 (11.5-15.5) % Plt Count 283 (150-450) k/uL Neutrophils % 50 % Lymphocytes % 35 % Monocytes % 8 % Eosinophils % 3 % Basophils % 1 % Neutrophils # 3.8 (1.3-7.7) k/uL Lymphocytes # 2.6 (1.0-4.8) k/uL Monocytes # 0.6 (0-1.0) k/uL Eosinophils # 0.2 (0-0.7) k/uL Basophils # 0.1 (0-0.2) k/uL Sodium (137-145) mmol/L Potassium (3.5-5.1) mmol/L Chloride (98-107) mmol/L Carbon Dioxide (22-30) mmol/L Anion Gap mmol/L BUN (7-17) mg/dL Creatinine (0.52-1.04) mg/dL Est GFR (CKD-EPI)AfAm (>60 ml/min/1.73 sqM) Est GFR (CKD-EPI)NonAf (>60 ml/min/1.73 sqM) Glucose (74-99) mg/dL Calcium (8.4-10.2) mg/dL Urine Color Urine Appearance (Clear) Urine pH (5.0-8.0) Ur Specific [place] (1.001-1.035) Urine Protein (Negative) Urine Glucose (UA) (Negative) Urine Ketones (Negative) Urine Blood (Negative) Urine Nitrite (Negative) Urine Bilirubin (Negative) Urine Urobilinogen (<2.0) mg/dL Ur Leukocyte Esterase (Negative) Urine RBC (0-5) /hpf Ur Squamous Epith Cells (0-4) /hpf Urine HCG, Qual (Not Detectd) Disposition Clinical Impression: Hematuria, Flank pain Disposition: HOME SELF-CARE Condition: Stable Additional Instructions: Follow up with your primary doctor within 2-3 days. Use Motrin (also called Ibuprofen or Advil) 400-800 mg every 6 hours as needed for pain. Take this with food, if you have any stomach discomfort while taking Motrin, you can use TUMS to help. Drink plenty of fluids, avoid caffeine & alcohol. Please continue taking your home medications as directed. Do not use alcohol when taking any medication (especially antibiotics, tylenol or other pain medication) unless you check with the doctor or pharmacist. Any worsening pain, fever, chills, difficulty urinating, or any other concerns, please see your doctor immediately or return to Emergency Department right away. Is patient prescribed a controlled substance at d/c from ED?: No Referrals: Greg Grewal DO [Primary Care Provider] - 1-2 days
[2018-12-21 18:08] LABS: Basophils # (A) 0.1 k/uL (0-0.2); Basophils % (A) 1 %; Eosinophils # (A) 0.2 k/uL (0-0.7); Eosinophils % (A) 3 %; HCT 42.2 % (34.0-46.0); HGB 13.9 gm/dL (11.4-16.0); Lymphocytes # (A) 2.6 k/uL (1.0-4.8); Lymphocytes % (A) 35 %; MCH 28.7 pg (25.0-35.0); MCV 86.9 fL (80.0-100.0); Mean Platelet Volume 7.4; Monocytes # (A) 0.6 k/uL (0-1.0); Monocytes % (A) 8 %; Neutrophils # (A) 3.8 k/uL (1.3-7.7); Neutrophils % (A) 50 %; Platelet Count 283 k/uL (150-450); RBC 4.86 m/uL (3.80-5.40); WBC 7.6 k/uL (3.8-10.6)
[2018-12-21 18:16] LABS: African American GFR (CKD) >90 (>60 ml/min/1.73 sqM); Anion Gap 8 mmol/L; Blood Urea Nitrogen 19 mg/dL (7-17); Calcium 9.6 mg/dL (8.4-10.2); Carbon Dioxide 28 mmol/L (22-30); Chloride 102 mmol/L (98-107); Glucose 87 mg/dL (74-99); Potassium 4.3 mmol/L (3.5-5.1); Sodium 138 mmol/L (137-145)
--- NOTE | 2018-12-21 18:16 | XR ---
EXAMINATION TYPE: XR KUB DATE OF EXAM: 12/21/2018 6:02 PM CLINICAL HISTORY: Left lower quadrant pain, hematuria TECHNIQUE: Single upright KUB image of the abdomen is obtained. COMPARISON: None. FINDINGS: Scattered gas is seen in non-distended small bowel loops. Gas and fecal material is seen in non-distended colon. There is no visceromegaly, pneumoperitoneum, or abnormal calcification apprecia inna. The lung bases are clear and the osseous structures are intact. IMPRESSION: Overall nonobstructive bowel gas pattern.
--- NOTE | 2018-12-21 19:42 | US ---
EXAMINATION TYPE: US kidneys/renal and bladder DATE OF EXAM: 12/21/2018 COMPARISON: CT abdomen/pelvis 03/17/2014 CLINICAL HISTORY: Left flank pain and hematuria. EXAM MEASUREMENTS: Right Kidney: 10.1 x 3.5 x 4.6 cm. Left Kidney: 10.5 x 5.1 x 4.9 cm. There is no evidence for hydronephrosis at this point in time. No shadowing nephrolithiasis is seen. No masses are identified. The urinary bladder is anechoic. Bilateral ureteral jets are seen. IMPRESSION: No hydronephrosis.
[2018-12-21 20:14] VITALS: BP 128/77; PULSE 100; RESP 18; TEMP 98.2
== END 2018-12-21 20:13 | disposition home or self-care (01) ==
LOC: EC 17:01
DX: R31.9 Hematuria, unspecified (principal); R10.9 Unspecified abdominal pain; F17.200 Nicotine dependence, unspecified, uncomplicated; Z88.1 Allergy status to other antibiotic agents; Z88.2 Allergy status to sulfonamides; Z88.8 Allergy status to other drugs, medicaments and biological substances; Z79.3 Long term (current) use of hormonal contraceptives; Z79.899 Other long term (current) drug therapy; Z87.440 Personal history of urinary (tract) infections
CPT/HCPCS: 36415; 80048; 85025; 81001; 81025; 74018; 76770; 99284; 96374; 96361; J1885

== ENCOUNTER 2019-08-22 04:17 | Emergency (ER) | payer OTHER ==
[2019-08-22 04:25] VITALS: BP 120/76; RESP 18; TEMP 98
--- NOTE | 2019-08-22 04:34 | ED ---
Skin/Abscess/FB HPI - General Chief complaint: Skin/Abscess/Foreign Body Stated complaint: allergic reaction Time Seen by Provider: 08/22/19 04:33 Source: patient Mode of arrival: ambulatory Limitations: no limitations - History of Present Illness Initial comments: Steffanie is a 29-year-old female presents ER today for evaluation of a reaction to medication. Patient reports she noticed a rash in her legs earlier this week she does admit that she had helped a friend rescue baby raccoons and was concerned she may have ringworm she saw her primary care physician who prescribed topical ketoconazole. Patient reports that she used it earlier this morning with no side effects however when she applied it this evening she had immediate burning of her skin including on her legs arms and face were she applied it. Patient then took a shower and tried to wash the medication off she continued have burning into the Benadryl. She then decided she should come to the ER this morning before her son wakes up so she didn't have to bring the child into the ER. Patient denies any associated fevers chills nausea vomiting or recent illness. She reports a rash on her legs and arms is not purulent pruritic but she seems to be developing more lesions daily. - Related Data Home Medications Medication Instructions Recorded Confirmed Albuterol Sulfate [Ventolin HFA] 1 - 2 puff INHALATION RT-Q6H PRN 12/21/18 12/21/18 Dextroamphetamine/Amphetamine 30 mg PO BID 12/21/18 12/21/18 [Adderall] Loratadine [Claritin] 10 mg PO DAILY 12/21/18 12/21/18 Vienva 0.1/0.2mg 1 tab PO DAILY 12/21/18 12/21/18 Allergies Allergy/AdvReac Type Severity Reaction Status Date / Time methylphenidate HCl Allergy Unknown Verified 08/22/19 04:25 [From Metadate CD] sulfamethoxazole Allergy Rash/Hives Verified 08/22/19 04:25 [From Bactrim] trimethoprim [From Bactrim] Allergy Rash/Hives Verified 08/22/19 04:25 cephalexin [From Keflex] AdvReac Nausea & Verified 08/22/19 04:25 Vomiting Review of Systems ROS Statement: Those systems with pertinent positive or pertinent negative responses have been documented in the HPI. ROS Other: All systems not noted in ROS Statement are negative. Past Medical History Past Medical History: No Reported History Additional Past Medical History / Comment(s): hypoglycemia, elevated liver enzymes History of Any Multi-Drug Resistant Organisms: None Reported Past Surgical History: Tonsillectomy Additional Past Surgical History / Comment(s): oral surgery Past Anesthesia/Blood Transfusion Reactions: No Reported Reaction Past Psychological History: Anxiety Smoking Status: Current some day smoker Past Alcohol Use History: Occasional Past Drug Use History: None Reported - Past Family History Mother Family Medical History: Asthma, Thyroid Disorder General Exam - General Exam Comments Initial Comments: Physical Exam GENERAL: Patient is well-developed and well-nourished. Patient is nontoxic and well-hydrated and is in no distress. HENT: Normocephalic, Atraumatic. EYES: PERRL, EOMI PULMONARY: Unlabored respirations. CARDIOVASCULAR: RRR Warm and well perfused extremities ABDOMEN: Non-distended SKIN: Rash on legs and arms, circular lesions measuring 3 mm to approximately 1 cm, 2 lesions on the left knee do appear to be ringworm-like in appearance as they are circular and more prominent around the edges of the rash. Other lesions seemed to be just developing and are much smaller. : Deferred NEUROLOGIC: Alert and oriented Normal speech Normal gait MUSCULOSKELETAL: Moving all extremities with no apparent injury PSYCHIATRIC: No SI/HI Limitations: no limitations Course Vital Signs 08/22/19 04:18 Temperature 98 F Pulse Rate 124 H Respiratory 18 Rate Blood Pressure 120/76 O2 Sat by Pulse 100 Oximetry Medical Decision Making - Medical Decision Making Patient was seen and evaluated history is obtained from the patient, history and physical exam concerning for likely ringworm type rash on the legs and arms, patient reported a burning reaction to the medication that she doesn't have any redness erythema or signs of ALLERGIC reaction. Patient was advised to stop the ketoconazole, she can try selenium sulfide topical which can buy [id number]. Patient was referred to dermatology for outpatient follow-up. Disposition Clinical Impression: Adverse reaction to antifungal drug, Skin eruption Disposition: HOME SELF-CARE Condition: Stable Instructions (If sedation given, give patient instructions): Skin Yeast Infection (ED) Additional Instructions: Buy a Selenium Sulfide lotion such as Selsus over the counter Is patient prescribed a controlled substance at d/c from ED?: No Referrals: Greg Grewal DO [Primary Care Provider] - 1-2 days [facility] [Provider Group] - 1-2 days
[2019-08-22 05:29] VITALS: PULSE 97
== END 2019-08-22 05:29 | disposition home or self-care (01) ==
LOC: EC 04:17
DX: L23.3 Allergic contact dermatitis due to drugs in contact with skin (principal); T49.0X5A Adverse effect of local antifungal, anti-infective and anti-inflammatory drugs, initial encounter; F17.200 Nicotine dependence, unspecified, uncomplicated; Z79.899 Other long term (current) drug therapy; Z88.1 Allergy status to other antibiotic agents; Z88.2 Allergy status to sulfonamides; Z88.8 Allergy status to other drugs, medicaments and biological substances
CPT/HCPCS: 99283

== ENCOUNTER 2019-10-28 14:41 | Emergency (ER) | payer OTHER ==
[2019-10-28 14:46] VITALS: BP 118/61; PULSE 85; RESP 18; TEMP 98.7
--- NOTE | 2019-10-28 14:53 | ED ---
Skin/Abscess/FB HPI - General Chief complaint: Skin/Abscess/Foreign Body Stated complaint: Bug Bite/Allergic Reaction Time Seen by Provider: 10/28/19 14:48 Source: patient, RN notes reviewed Mode of arrival: ambulatory Limitations: no limitations - History of Present Illness Initial comments: 29-year-old female presents emergency Department chief complaint of a rash to her left knee posterior aspect. Patient states that started approximately one week ago. She was seen at [facility] was given some sort of antibacterial cream. She states is increasing. She states that small blisters are popping. No fevers chills no pain proximal or distal. She is unsure what caused the initial wound. - Related Data Home Medications Medication Instructions Recorded Confirmed Albuterol Sulfate [Ventolin HFA] 1 - 2 puff INHALATION RT-Q6H PRN 12/21/18 12/21/18 Dextroamphetamine/Amphetamine 30 mg PO BID 12/21/18 12/21/18 [Adderall] Loratadine [Claritin] 10 mg PO DAILY 12/21/18 12/21/18 Vienva 0.1/0.2mg 1 tab PO DAILY 12/21/18 12/21/18 Previous Rx's Medication Instructions Recorded Clindamycin HCl 300 mg PO Q6HR #40 cap 10/28/19 Triamcinolone 0.1% Cream [Kenalog 1 applicatio TOPICAL BID #15 gram 10/28/19 0.1% Cream] Allergies Allergy/AdvReac Type Severity Reaction Status Date / Time methylphenidate HCl Allergy Unknown Verified 10/28/19 14:46 [From Metadate CD] sulfamethoxazole Allergy Rash/Hives Verified 10/28/19 14:46 [From Bactrim] trimethoprim [From Bactrim] Allergy Rash/Hives Verified 10/28/19 14:46 cephalexin [From Keflex] AdvReac Nausea & Verified 10/28/19 14:46 Vomiting Review of Systems ROS Statement: Those systems with pertinent positive or pertinent negative responses have been documented in the HPI. ROS Other: All systems not noted in ROS Statement are negative. Past Medical History Past Medical History: No Reported History Additional Past Medical History / Comment(s): hypoglycemia, elevated liver enzymes History of Any Multi-Drug Resistant Organisms: None Reported Past Surgical History: Tonsillectomy Additional Past Surgical History / Comment(s): oral surgery Past Anesthesia/Blood Transfusion Reactions: No Reported Reaction Past Psychological History: Anxiety, Bipolar Smoking Status: Current every day smoker Past Alcohol Use History: Occasional Past Drug Use History: None Reported - Past Family History Mother Family Medical History: Asthma, Thyroid Disorder General Exam Limitations: no limitations General appearance: alert, in no apparent distress Head exam: Present: atraumatic, normocephalic, normal inspection Respiratory exam: Present: normal lung sounds bilaterally. Absent: respiratory distress, wheezes, rales, rhonchi, stridor Cardiovascular Exam: Present: regular rate, normal rhythm, normal heart sounds. Absent: systolic murmur, diastolic murmur, rubs, gallop, clicks Extremities exam: Present: other (Left posterior knee there is erythematous rash with some macular papular areas, excoriations noted.) Course Vital Signs 10/28/19 14:43 Temperature 98.7 F Pulse Rate 85 Respiratory 18 Rate Blood Pressure 118/61 O2 Sat by Pulse 97 Oximetry Medical Decision Making - Medical Decision Making Patient appears to have some sort of contact dermatitis versus cellulitis. Patient we placed on clindamycin as she has ALLERGY to Bactrim and Keflex. Patient was also given Kenalog cream. Disposition Clinical Impression: Contact dermatitis, Cellulitis Disposition: HOME SELF-CARE Condition: Stable Instructions (If sedation given, give patient instructions): Cellulitis (ED) Additional Instructions: Please return to the Emergency Department if symptoms worsen or any other concerns. Prescriptions: Clindamycin HCl 300 mg PO Q6HR #40 cap Triamcinolone 0.1% Cream [Kenalog 0.1% Cream] 1 applicatio TOPICAL BID #15 gram Is patient prescribed a controlled substance at d/c from ED?: No Referrals: Greg Grewal DO [Primary Care Provider] - 1-2 days Time of Disposition: 14:53
== END 2019-10-28 15:01 | disposition home or self-care (01) ==
LOC: EC 14:41
DX: L25.9 Unspecified contact dermatitis, unspecified cause (principal); L03.90 Cellulitis, unspecified; F17.200 Nicotine dependence, unspecified, uncomplicated; Z79.899 Other long term (current) drug therapy; Z88.1 Allergy status to other antibiotic agents; Z88.2 Allergy status to sulfonamides; Z88.8 Allergy status to other drugs, medicaments and biological substances
CPT/HCPCS: 99282

== ENCOUNTER 2020-01-18 20:22 | Emergency (ER) | payer OTHER ==
[2020-01-18 20:41] VITALS: RESP 18
--- NOTE | 2020-01-18 21:44 | ED ---
General Adult HPI - General Chief complaint: Dental/Oral Stated complaint: Dental Pain Time Seen by Provider: 01/18/20 20:56 Source: patient, RN notes reviewed Mode of arrival: ambulatory Limitations: no limitations - History of Present Illness Initial comments: 29-year-old female presents to the emergency room for a chief complaint of mouth pain. Patient reports that she has had sores in her mouth for the past couple days. States that she has pain on the left inner lower gumline. Patient has not had any fevers. Patient denies any dental pain. Patient denies difficulty swallowing.Patient has no other complaints at this time including shortness of breath, chest pain, abdominal pain, nausea or vomiting, headache, or visual changes. - Related Data Home Medications Medication Instructions Recorded Confirmed Albuterol Sulfate [Ventolin HFA] 1 - 2 puff INHALATION RT-Q6H PRN 12/21/18 12/21/18 Dextroamphetamine/Amphetamine 30 mg PO BID 12/21/18 12/21/18 [Adderall] Loratadine [Claritin] 10 mg PO DAILY 12/21/18 12/21/18 Vienva 0.1/0.2mg 1 tab PO DAILY 12/21/18 12/21/18 Previous Rx's Medication Instructions Recorded Clindamycin HCl 300 mg PO Q6HR #40 cap 10/28/19 Triamcinolone 0.1% Cream [Kenalog 1 applicatio TOPICAL BID #15 gram 10/28/19 0.1% Cream] Mupirocin 2% Oint [Bactroban 2% 1 applic TOPICAL TID 5 Days #15 gm 01/18/20 Oint] lidocaine HCL [Lidocaine HCl 5 ml MM Q6H PRN #50 ml 01/18/20 Viscous] valACYclovir [Valtrex] 1,000 mg PO BID 1 Days #4 tab 01/18/20 Allergies Allergy/AdvReac Type Severity Reaction Status Date / Time methylphenidate HCl Allergy Unknown Verified 01/18/20 20:42 [From Metadate CD] sulfamethoxazole Allergy Rash/Hives Verified 01/18/20 20:42 [From Bactrim] trimethoprim [From Bactrim] Allergy Rash/Hives Verified 01/18/20 20:42 cephalexin [From Keflex] AdvReac Nausea & Verified 01/18/20 20:42 Vomiting Review of Systems ROS Statement: Those systems with pertinent positive or pertinent negative responses have been documented in the HPI. ROS Other: All systems not noted in ROS Statement are negative. Past Medical History Past Medical History: No Reported History Additional Past Medical History / Comment(s): hypoglycemia, elevated liver enzymes History of Any Multi-Drug Resistant Organisms: None Reported Past Surgical History: Tonsillectomy Additional Past Surgical History / Comment(s): oral surgery Past Anesthesia/Blood Transfusion Reactions: No Reported Reaction Past Psychological History: Anxiety, Bipolar, Depression Smoking Status: Current every day smoker Past Alcohol Use History: Occasional Past Drug Use History: None Reported - Past Family History Mother Family Medical History: Asthma, Thyroid Disorder General Exam Limitations: no limitations General appearance: alert, in no apparent distress Head exam: Present: atraumatic, normocephalic, normal inspection Eye exam: Present: normal appearance, PERRL, EOMI. Absent: scleral icterus, conjunctival injection, periorbital swelling ENT exam: Present: normal exam, mucous membranes moist. Absent: normal oropharynx (aphthous ulcer right corner lower lip and mid upper lip. Aphthous ulcer noted to the left lower inner cheek.) Neck exam: Present: normal inspection, full ROM. Absent: tenderness, meningismus, lymphadenopathy Respiratory exam: Present: normal lung sounds bilaterally. Absent: respiratory distress, wheezes, rales, rhonchi, stridor Cardiovascular Exam: Present: regular rate, normal rhythm, normal heart sounds. Absent: systolic murmur, diastolic murmur, rubs, gallop, clicks GI/Abdominal exam: Present: soft, normal bowel sounds. Absent: distended, tenderness, guarding, rebound, rigid Neurological exam: Present: alert Course Vital Signs 01/18/20 20:33 Temperature 97.7 F Pulse Rate 115 H Respiratory 18 Rate Blood Pressure 135/85 O2 Sat by Pulse 100 Oximetry Medical Decision Making - Medical Decision Making Patient has ulcers noted on the lip margins as well as inside the mouth. She has never had these sores before. Patient will be treated with valacyclovir and Magic mouthwash. She will be given mupirocin ointment as well. She will follow up with her doctor. She will return here for any worsening symptoms. Disposition Clinical Impression: Lip ulcer Disposition: HOME SELF-CARE Condition: Good Instructions (If sedation given, give patient instructions): Oral Herpes Simplex Virus Infections (ED) Additional Instructions: Take medications as directed. Follow up with your doctor in one to 2 days. Return to the emergency room for any worsening symptoms. Mix 5 mL's of viscous lidocaine with 5 mL of liquid Benadryl and 5 mL's of Maalox. Swish and spit. You may do this every 4-6 hours as needed for pain. Do not swallow. Prescriptions: Mupirocin 2% Oint [Bactroban 2% Oint] 1 applic TOPICAL TID 5 Days #15 gm lidocaine HCL [Lidocaine HCl Viscous] 5 ml MM Q6H PRN #50 ml PRN Reason: Pain valACYclovir [Valtrex] 1,000 mg PO BID 1 Days #4 tab Is patient prescribed a controlled substance at d/c from ED?: No Referrals: Greg Grewal DO [Primary Care Provider] - 1-2 days Time of Disposition: 21:44
[2020-01-18 21:50] VITALS: PULSE 98
[2020-01-18 21:54] VITALS: BP 123/84; TEMP 98.8
== END 2020-01-18 21:54 | disposition home or self-care (01) ==
LOC: EC 20:22
DX: K12.0 Recurrent oral aphthae (principal); F17.200 Nicotine dependence, unspecified, uncomplicated; Z79.899 Other long term (current) drug therapy; Z79.3 Long term (current) use of hormonal contraceptives; Z88.8 Allergy status to other drugs, medicaments and biological substances; Z88.2 Allergy status to sulfonamides; Z88.1 Allergy status to other antibiotic agents
CPT/HCPCS: 99282

== ENCOUNTER 2020-02-28 14:10 | Emergency (ER) | payer OTHER ==
[2020-02-28 14:20] VITALS: BP 137/83; PULSE 101; RESP 18; TEMP 98.1
[2020-02-28] MEDS ORDERED: ACET/COD 300 MG/30 MG STARTER PACK 6 TAB BTL PO STA (14:28)
--- NOTE | 2020-02-28 14:41 | ED ---
Lower Extremity Injury HPI - General Chief Complaint: Extremity Injury, Lower Stated Complaint: L Ankle/Foot Injury Time Seen by Provider: 02/28/20 14:23 Source: patient Mode of arrival: wheelchair Limitations: no limitations - History of Present Illness Initial Comments: 29-year-old female patient presents to the emergency department today for evaluation of left ankle pain. Patient states that last night she went out to smoke a cigarette when she tripped and fell. She states that her ankle twisted. States that throughout the day the swelling has been worsening. States she did take Motrin that didn't help for the pain. States she is having difficulty ambulating. States the pain shoots up her leg. She denies hitting her head or losing consciousness with the fall. Denies any other injuries. Denies chance of . Patient denies any headache, neck pain, back pain, chest pain, shortness of breath, dizziness, weakness, abdominal pain, nausea, vomiting, or difficulties with bowel movements or urination. - Related Data Home Medications Medication Instructions Recorded Confirmed Albuterol Sulfate [Ventolin HFA] 1 - 2 puff INHALATION RT-Q6H PRN 12/21/18 12/21/18 Dextroamphetamine/Amphetamine 30 mg PO BID 12/21/18 12/21/18 [Adderall] Loratadine [Claritin] 10 mg PO DAILY 12/21/18 12/21/18 Vienva 0.1/0.2mg 1 tab PO DAILY 12/21/18 12/21/18 Previous Rx's Medication Instructions Recorded Clindamycin HCl 300 mg PO Q6HR #40 cap 10/28/19 Triamcinolone 0.1% Cream [Kenalog 1 applicatio TOPICAL BID #15 gram 10/28/19 0.1% Cream] Mupirocin 2% Oint [Bactroban 2% 1 applic TOPICAL TID 5 Days #15 gm 01/18/20 Oint] lidocaine HCL [Lidocaine HCl 5 ml MM Q6H PRN #50 ml 01/18/20 Viscous] valACYclovir [Valtrex] 1,000 mg PO BID 1 Days #4 tab 01/18/20 Allergies Allergy/AdvReac Type Severity Reaction Status Date / Time methylphenidate HCl Allergy Unknown Verified 02/28/20 14:21 [From Metadate CD] sulfamethoxazole Allergy Rash/Hives Verified 02/28/20 14:21 [From Bactrim] trimethoprim [From Bactrim] Allergy Rash/Hives Verified 02/28/20 14:21 cephalexin [From Keflex] AdvReac Nausea & Verified 02/28/20 14:21 Vomiting Review of Systems ROS Statement: Those systems with pertinent positive or pertinent negative responses have been documented in the HPI. ROS Other: All systems not noted in ROS Statement are negative. Past Medical History Past Medical History: No Reported History Additional Past Medical History / Comment(s): hypoglycemia, elevated liver enzymes History of Any Multi-Drug Resistant Organisms: None Reported Past Surgical History: Tonsillectomy Additional Past Surgical History / Comment(s): oral surgery Past Anesthesia/Blood Transfusion Reactions: No Reported Reaction Past Psychological History: Anxiety, Bipolar, Depression Smoking Status: Current every day smoker Past Alcohol Use History: Occasional Past Drug Use History: Marijuana - Past Family History Mother Family Medical History: Asthma, Thyroid Disorder General Exam Limitations: no limitations General appearance: alert, in no apparent distress, other (Physical well- developed, well-nourished adult female patient in no acute distress. Vital sig ns upon presentation are temperature 98.1F, pulse 101, respirations 18, blood pressure 137/83, pulse ox 100% on room air.) Head exam: Present: atraumatic, normocephalic, normal inspection Neck exam: Present: normal inspection, full ROM, other (Nontender, no step-off, no deformity to firm midline palpation of the posterior cervical spine. Full range of motion without pain or limitation.). Absent: tenderness, meningismus, lymphadenopathy Respiratory exam: Present: normal lung sounds bilaterally. Absent: respiratory distress, wheezes, rales, rhonchi, stridor Cardiovascular Exam: Present: regular rate, normal rhythm, normal heart sounds. Absent: systolic murmur, diastolic murmur, rubs, gallop, clicks Extremities exam: Present: full ROM, normal capillary refill, other (Left lateral ankle swelling noted. There is tenderness over the dorsum of the foot and over the left lateral malleolus. Skin is otherwise pink, warm, dry. Cap refills less than 3 seconds. Pedal pulses 2+ and equal bilaterally.). Absent: normal inspection, tenderness, pedal edema, joint swelling, calf tenderness Neurological exam: Present: alert, oriented X3, CN II-XII intact Psychiatric exam: Present: normal affect, normal mood Skin exam: Present: warm, dry, intact, normal color. Absent: rash Course Vital Signs 02/28/20 14:18 Temperature 98.1 F Pulse Rate 101 H Respiratory 18 Rate Blood Pressure 137/83 O2 Sat by Pulse 100 Oximetry Medical Decision Making - Medical Decision Making 29-year-old female patient presents to the emergency department today for evaluation of left ankle pain and swelling after a fall last night. Physical examination did reveal swelling to the left lateral malleolus. Patient is able to ablate though it is painful. X-ray was negative for signs of fracture in the foot or the ankle. We did apply ankle stirrup splint. She'll be discharged with instructions to rest, ice, elevate. She is instructed to follow up with her primary care physician for recheck in 1-2 days. She is instructed to have repeat x-rays performed in 7-10 days if pain symptoms persist. Return parameters were discussed in detail. She verbalizes understanding and agrees with this plan. - Radiology Data Radiology results: report reviewed, image reviewed 3 views of the left ankle are obtained. Report reviewed in its entirety. Impression by Dr. Slade shows lateral soft tissue swelling. No fracture seen. 3 views of the left foot are obtained. Report is reviewed in its entirety. Impression by Dr. Slade shows negative left foot exam. No fracture seen. Disposition Clinical Impression: Left ankle sprain Disposition: HOME SELF-CARE Condition: Good Instructions (If sedation given, give patient instructions): Ankle Sprain (ED) Additional Instructions: Rest, ice, elevate the ankle. Take Tylenol Motrin for pain control. Follow-up with the primary care physician for recheck in 1-2 days. Have repeat x-rays performed in 7-10 days if pain symptoms persist. Return to the emergency department for any new, worsening, or concerning symptoms. Is patient prescribed a controlled substance at d/c from ED?: No Referrals: Greg Grewal DO [Primary Care Provider] - 1-2 days Time of Disposition: 15:17
--- NOTE | 2020-02-28 15:15 | XR ---
EXAMINATION TYPE: XR ankle complete LT DATE OF EXAM: 02/28/2020 COMPARISON: 02/27/2014 HISTORY: Pain. Fall. TECHNIQUE: 3 views FINDINGS: There is soft tissue swelling over the lateral malleolus. Ankle mortise is anatomic. I see no fracture nor dislocation. Joint spaces are normal. IMPRESSION: Lateral soft tissue swelling. No fracture seen.
--- NOTE | 2020-02-28 15:16 | XR ---
EXAMINATION TYPE: XR foot complete LT DATE OF EXAM: 02/28/2020 COMPARISON: 12/30/2014 HISTORY: Pain TECHNIQUE: 3 views FINDINGS: Metatarsals appear intact. I see no fracture nor dislocation. Joint spaces are fairly jose rafael l. IMPRESSION: Negative left foot exam. No fracture seen.
== END 2020-02-28 15:34 | disposition home or self-care (01) ==
LOC: EC 14:10
DX: S93.402A Sprain of unspecified ligament of left ankle, initial encounter (principal); F17.210 Nicotine dependence, cigarettes, uncomplicated; Z79.899 Other long term (current) drug therapy; Z88.1 Allergy status to other antibiotic agents; Z88.2 Allergy status to sulfonamides; Z88.8 Allergy status to other drugs, medicaments and biological substances; W01.0XXA Fall on same level from slipping, tripping and stumbling without subsequent striking against object, initial encounter
CPT/HCPCS: 73610; 73630; 99283; 29515; L4350

== ENCOUNTER 2020-06-16 20:19 | Emergency (ER) | payer OTHER ==
[2020-06-16 22:00] VITALS: RESP 18
[2020-06-16] MEDS ORDERED: SODIUM CHLORIDE 0.9% 1,000 ML IV ONE (22:05)
[2020-06-16 22:17] LABS: Basophils # (A) 0.1 k/uL (0-0.2); Basophils % (A) 1 %; Eosinophils # (A) 0.3 k/uL (0-0.7); Eosinophils % (A) 2 %; HCT 38.2 % (34.0-46.0); HGB 13.2 gm/dL (11.4-16.0); Lymphocytes # (A) 2.6 k/uL (1.0-4.8); Lymphocytes % (A) 19 %; MCH 30.7 pg (25.0-35.0); MCHC 34.5 g/dL (31.0-37.0); MCV 89.1 fL (80.0-100.0); Mean Platelet Volume 8.4; Monocytes # (A) 0.5 k/uL (0-1.0); Monocytes % (A) 4 %; Neutrophils # (A) 10.1 k/uL (1.3-7.7); Neutrophils % (A) 74 %; Platelet Count 278 k/uL (150-450); RBC 4.29 m/uL (3.80-5.40); RDW 12.7 % (11.5-15.5); WBC 13.7 k/uL (3.8-10.6)
[2020-06-16 22:32] LABS: ALT 39 U/L (4-34); AST 52 U/L (14-36); African American GFR (CKD) >90 (>60 ml/min/1.73 sqM); Albumin 4.5 g/dL (3.5-5.0); Alkaline Phosphatase 82 U/L (38-126); Anion Gap 9 mmol/L; Blood Urea Nitrogen 11 mg/dL (7-17); Calcium 9.6 mg/dL (8.4-10.2); Carbon Dioxide 25 mmol/L (22-30); Chloride 101 mmol/L (98-107); Glucose 110 mg/dL (74-99); Non-African American GFR(CKD) >90 (>60 ml/min/1.73 sqM); Potassium 3.8 mmol/L (3.5-5.1); Sodium 135 mmol/L (137-145); Total Bilirubin 0.3 mg/dL (0.2-1.3); Total Protein 7.4 g/dL (6.3-8.2)
[2020-06-16 22:47] LABS: HCG,Quantitative Serum 1215.3 mIU/mL
--- NOTE | 2020-06-16 23:01 | US ---
EXAMINATION TYPE: Transabdominal DATE OF EXAM: 06/16/2020 10:38 PM COMPARISON: NONE CLINICAL HISTORY: Passing large clots; 10wks. Passing large clots. Hx miscarriage. . EXAM PERFORMED: Transabdominal (TA). Transvaginal not to be performed per Sofya MIRANDA. EXAM MEASUREMENTS: GESTATIONAL AGE / DATING Physician Established: Not yet established. Dates by LMP: Unknown. Dates by First Scan: This is first scan. Dates by Current Scan for: No definite IUP seen. Possible irregular-appearing gestational sac measure s (5 weeks/2 days) EDC: 02/14/2021 MATERNAL ANATOMY Uterus: 10.4 x 5.4 x 5.3 cm. Anteverted. Right Ovary: 3.3 x 1.9 x 2.0 cm. Follicles seen. Left Ovary: Not seen. Post CDS / Adnexa: Appear wnl. Presence of free fluid: Not seen. Presence of corpus luteal cyst: No. GESTATION / SURVEY MSD: Complex area seen mid uterus: 1.6 x 0.8 x 1.0 cm. 1.12 cm.(5 weeks/2 days) *Complex area seen lower cervix-vaginal canal measurin.2 x 6.6 x 4.1 cm. IUP: No pole seen at this time. Date of LMP: Unknown. Beta HcG (if available): Not available IMPRESSION: 7 x 4 cm echogenic area in the vaginal vault is probably some blood clot. No evidence of intrauterine gestational sac. No adnexal mass. Findings are suggestive of incomplete .
[2020-06-17 00:18] VITALS: BP 108/65; PULSE 99; TEMP 98.1
--- NOTE | 2020-06-17 00:28 | ED ---
General Adult HPI - General Chief complaint: Vaginal Bleeding Stated complaint: Bleeding,possible mscarriage 10 week Time Seen by Provider: 06/16/20 21:49 Source: patient Mode of arrival: ambulatory Limitations: no limitations - History of Present Illness Initial comments: 29-year-old female patient presents to the emergency department today for evaluation of vaginal bleeding and early . She is A1. Patient blew she is around 9010 weeks . States she's been having vaginal bleeding for the last 4 days. States today the pain intensified and her bleeding became heavier so she presented here for further evaluation. While waiting in the waiting room she did go to the bathroom had increased pressure and did pass what appeared to be contents. Patient states since then she has had improvement in pain and bleeding. States that she did have some dizziness and weakness after this occurred. She denies any hematuria, dysuria, urinary frequency, urinary urgency. Denies fever or chills. Patient denies any recent rash, cough, shortness of breath, chest pain, nausea, vomiting, diarrhea, constipation, numbness, tingling, dizziness, weakness, headache, visual changes, or any other complaints. - Related Data Home Medications Medication Instructions Recorded Confirmed Albuterol Sulfate [Ventolin HFA] 1 - 2 puff INHALATION RT-Q6H PRN 12/21/18 12/21/18 Dextroamphetamine/Amphetamine 30 mg PO BID 12/21/18 12/21/18 [Adderall] Loratadine [Claritin] 10 mg PO DAILY 12/21/18 12/21/18 Vienva 0.1/0.2mg 1 tab PO DAILY 12/21/18 12/21/18 Previous Rx's Medication Instructions Recorded Clindamycin HCl 300 mg PO Q6HR #40 cap 10/28/19 Triamcinolone 0.1% Cream [Kenalog 1 applicatio TOPICAL BID #15 gram 10/28/19 0.1% Cream] Mupirocin 2% Oint [Bactroban 2% 1 applic TOPICAL TID 5 Days #15 gm 01/18/20 Oint] lidocaine HCL [Lidocaine HCl 5 ml MM Q6H PRN #50 ml 01/18/20 Viscous] valACYclovir [Valtrex] 1,000 mg PO BID 1 Days #4 tab 01/18/20 Allergies Allergy/AdvReac Type Severity Reaction Status Date / Time methylphenidate HCl Allergy Unknown Verified 06/16/20 20:37 [From Metadate CD] sulfamethoxazole Allergy Rash/Hives Verified 06/16/20 20:37 [From Bactrim] trimethoprim [From Bactrim] Allergy Rash/Hives Verified 06/16/20 20:37 cephalexin [From Keflex] AdvReac Nausea & Verified 06/16/20 20:37 Vomiting Review of Systems ROS Statement: Those systems with pertinent positive or pertinent negative responses have been documented in the HPI. ROS Other: All systems not noted in ROS Statement are negative. Past Medical History Past Medical History: No Reported History Additional Past Medical History / Comment(s): hypoglycemia, elevated liver enzymes History of Any Multi-Drug Resistant Organisms: None Reported Past Surgical History: Tonsillectomy Additional Past Surgical History / Comment(s): oral surgery Past Anesthesia/Blood Transfusion Reactions: No Reported Reaction Past Psychological History: Anxiety, Bipolar, Depression Smoking Status: Current every day smoker Past Alcohol Use History: Occasional Past Drug Use History: Marijuana - Past Family History Mother Family Medical History: Asthma, Thyroid Disorder General Exam Limitations: no limitations General appearance: alert, in no apparent distress, other (Social well- developed, well-nourished adult female patient in no acute distress. Vital signs upon presentation are temperature 97.9F, pulse 120, respirations 19, blood pressure 114/79, pulse ox 98% on room air.) Eye exam: Present: normal appearance, PERRL, EOMI. Absent: scleral icterus, conjunctival injection, periorbital swelling ENT exam: Present: normal exam, normal oropharynx, mucous membranes moist Respiratory exam: Present: normal lung sounds bilaterally. Absent: respiratory distress, wheezes, rales, rhonchi, stridor Cardiovascular Exam: Present: regular rate, normal rhythm, normal heart sounds. Absent: systolic murmur, diastolic murmur, rubs, gallop, clicks GI/Abdominal exam: Present: soft, tenderness (Suprapubic tenderness), normal bowel sounds. Absent: distended, guarding, rebound, rigid External exam: Present: normal external exam Speculum exam: Present: vaginal bleeding (Dark red vaginal bleeding noted), other (No blood clots noted. Cervical os is open) By manual exam: Present: uterine tenderness Neurological exam: Present: alert, oriented X3, CN II-XII intact Psychiatric exam: Present: normal affect, normal mood Skin exam: Present: warm, dry, intact, normal color. Absent: rash Course Vital Signs 06/16/20 06/16/20 06/17/20 20:31 21:54 00:16 Temperature 97.9 F 98.1 F Pulse Rate 120 H 91 99 Respiratory 19 18 18 Rate Blood Pressure 114/79 94/67 108/65 O2 Sat by Pulse 98 99 100 Oximetry Medical Decision Making - Medical Decision Making 29-year-old female patient presents to the emergency department today for evaluation of possible miscarriage. Physical examination did reveal suprapubic tenderness. Pelvic exam was performed and did show dark red blood in the vaginal vault. No clots were noted. Cervical os was open labs reviewed and did reveal white blood cell count at 13.7. AST ALT mildly elevated. HCG was 1215.3. Ultrasound was performed and did show irregular gestational sac and the uterus with blood clots noted possibly in the vagina or cervix. Findings consistent with incomplete . Is also discussed with the patient. She'll be discharged to follow up with her [employer] for recheck in 1-2 days. She is given lab slip to have repeat hCG performed in 2 days. Return parameters were discussed in detail. She verbalizes understanding and agrees with this plan. Case discussed with my attending Dr. Mariano. - Lab Data Result diagrams: 06/16/20 21:53 06/16/20 21:53 Lab Results 06/16/20 06/16/20 06/16/20 Range/Units 21:51 21:53 21:53 WBC 13.7 H (3.8-10.6) k/uL RBC 4.29 (3.80-5.40) m/uL Hgb 13.2 (11.4-16.0) gm/dL Hct 38.2 (34.0-46.0) % MCV 89.1 (80.0-100.0) fL MCH 30.7 (25.0-35.0) pg MCHC 34.5 (31.0-37.0) g/dL RDW 12.7 (11.5-15.5) % Plt Count 278 (150-450) k/uL MPV 8.4 Neutrophils % 74 % Lymphocytes % 19 % Monocytes % 4 % Eosinophils % 2 % Basophils % 1 % Neutrophils # 10.1 H (1.3-7.7) k/uL Lymphocytes # 2.6 (1.0-4.8) k/uL Monocytes # 0.5 (0-1.0) k/uL Eosinophils # 0.3 (0-0.7) k/uL Basophils # 0.1 (0-0.2) k/uL Sodium 135 L (137-145) mmol/L Potassium 3.8 (3.5-5.1) mmol/L Chloride 101 (98-107) mmol/L Carbon Dioxide 25 (22-30) mmol/L Anion Gap 9 mmol/L BUN 11 (7-17) mg/dL Creatinine 0.82 (0.52-1.04) mg/dL Est GFR (CKD-EPI)AfAm >90 (>60 ml/min/1.73 sqM) Est GFR (CKD-EPI)NonAf >90 (>60 ml/min/1.73 sqM) Glucose 110 H (74-99) mg/dL Calcium 9.6 (8.4-10.2) mg/dL Total Bilirubin 0.3 (0.2-1.3) mg/dL AST 52 H (14-36) U/L ALT 39 H (4-34) U/L Alkaline Phosphatase 82 (38-126) U/L Total Protein 7.4 (6.3-8.2) g/dL Albumin 4.5 (3.5-5.0) g/dL HCG, Quant 1215.3 mIU/mL Blood Type O Positive Blood Type Recheck No Previous Record Bld Type Recheck Status [facility] ONLY - Radiology Data Radiology results: report reviewed ultrasound was obtained. Report was reviewed in its entirety. Impression by Dr. Slade shows 7 x 4 cm echogenic area in the vaginal vault pelvis a blood clot. No evidence for intrauterine gestational sac. No adnexal mass. Findings are suggestive of incomplete . Disposition Clinical Impression: Miscarriage Disposition: HOME SELF-CARE Condition: Good Instructions (If sedation given, give patient instructions): Miscarriage (ED) Additional Instructions: Have repeat HCG level drawn in 2 days. Call your OBGYN first thing in the morning for an appointment. Return to the emergency department for further evaluation for any new, worsening, or concerning symptoms. Is patient prescribed a controlled substance at d/c from ED?: No Referrals: Greg Grewal DO [Primary Care Provider] - 1-2 days Nasra Vidal DO [Doctor of Osteopathic Medicine] - 1-2 days Time of Disposition: 00:29
[2020-06-17] MEDS ORDERED: traMADol 50 MG STARTER PACK 3 TAB BTL PO STA (00:38)
== END 2020-06-17 01:00 | disposition home or self-care (01) ==
LOC: EC 20:19
DX: O03.9 Complete or unspecified spontaneous abortion without complication (principal); R74.8 Abnormal levels of other serum enzymes; R74.01 Elevation of levels of liver transaminase levels; F17.200 Nicotine dependence, unspecified, uncomplicated; Z79.899 Other long term (current) drug therapy; Z79.3 Long term (current) use of hormonal contraceptives; Z88.8 Allergy status to other drugs, medicaments and biological substances; Z88.2 Allergy status to sulfonamides; Z88.1 Allergy status to other antibiotic agents
CPT/HCPCS: 36415; 76801; 80053; 84702; 85025; 86900; 86901; 96360; 96361; 99284

== ENCOUNTER 2020-09-25 19:09 | Emergency (ER) | payer OTHER ==
[2020-09-25 19:20] VITALS: BP 139/87; PULSE 100; RESP 18; TEMP 97.8
[2020-09-25 19:41] LABS: Appearance,Urine Clear (Clear); Bilirubin,Urine Negative (Negative); Blood,Urine Negative (Negative); Color,Urine Colorless; Glucose,Urine (UA) Negative (Negative); Ketones,Urine Negative (Negative); Leukocyte Esterase,Urine Moderate (Negative); Nitrite,Urine Negative (Negative); Protein,Urine Negative (Negative); RBC,Urine <1 /hpf (0-5); Urobilinogen,Urine <2.0 mg/dL (<2.0); WBC,Urine 1 /hpf (0-5)
[2020-09-25] MEDS ORDERED: KETOROLAC 15 MG/ML 1 ML VIAL IVP STA (20:30)
[2020-09-25 20:39] LABS: Basophils # (A) 0.1 k/uL (0-0.2); Basophils % (A) 1 %; Eosinophils # (A) 0.2 k/uL (0-0.7); Eosinophils % (A) 2 %; HCT 36.1 % (34.0-46.0); Lymphocytes % (A) 18 %; MCH 26.6 pg (25.0-35.0); MCHC 33.3 g/dL (31.0-37.0); MCV 79.9 fL (80.0-100.0); Mean Platelet Volume 8.9; Monocytes # (A) 0.7 k/uL (0-1.0); Monocytes % (A) 6 %; Neutrophils # (A) 7.7 k/uL (1.3-7.7); Neutrophils % (A) 71 %; Platelet Count 260 k/uL (150-450); RBC 4.51 m/uL (3.80-5.40); RDW 15.8 % (11.5-15.5); WBC 10.9 k/uL (3.8-10.6)
[2020-09-25 20:50] LABS: ALT 24 U/L (4-34); AST 32 U/L (14-36); African American GFR (CKD) >90 (>60 ml/min/1.73 sqM); Albumin 4.5 g/dL (3.5-5.0); Alkaline Phosphatase 136 U/L (38-126); Anion Gap 8 mmol/L; Blood Urea Nitrogen 9 mg/dL (7-17); Calcium 9.4 mg/dL (8.4-10.2); Carbon Dioxide 26 mmol/L (22-30); Chloride 97 mmol/L (98-107); Glucose 89 mg/dL (74-99); Lipase 26 U/L (23-300); Non-African American GFR(CKD) >90 (>60 ml/min/1.73 sqM); Potassium 3.8 mmol/L (3.5-5.1); Sodium 131 mmol/L (137-145); Total Bilirubin 0.8 mg/dL (0.2-1.3); Total Protein 7.4 g/dL (6.3-8.2)
--- NOTE | 2020-09-25 21:17 | CT ---
EXAMINATION TYPE: CT abdomen pelvis w con DATE OF EXAM: 09/25/2020 COMPARISON: 11/07/2012 HISTORY: Abdominal pain CT DLP: 658.6 mGycm Automated exposure control for dose reduction was used. CONTRAST: Performed with IV Contrast, patient injected with 100 mL of Isovue 300. Images obtained from the diaphragm to the floor the pelvis with IV contrast. Lung bases are clear. There is no pleural effusion. Heart size is normal. There is no pericardial eff usion. Liver spleen stomach pancreas gallbladder appear normal. The bile ducts are not dilated. There is no adrenal mass. Kidneys have normal size. There is bilateral mild hydronephrosis. Delayed i mages show symmetric renal excretion. There is minimal stranding around the left ureter. Bladder dist ends smoothly. There is no inguinal hernia. There is no free fluid in the pelvis. The lumbar vertebra have normal alignment. Posterior elements are intact. There is no compression fra cture. Bony pelvis is intact. The hip joints are intact. There is no mesenteric edema. There is no ascites or free air. There is no sign of a bowel obstructio n. Appendix not definitely seen. No sign of thickened appendix. IMPRESSION: There is bilateral hydronephrosis and mild hydroureter which is a change compared to old exam no obst ructing calculus seen. This could relate to pyelonephritis and ureteritis.
--- NOTE | 2020-09-25 21:35 | ED ---
Female Urogenital HPI - General Chief complaint: Urogenital Stated complaint: Pain while urinating/Lower Back Pain Time Seen by Provider: 09/25/20 19:15 Source: patient Mode of arrival: ambulatory Limitations: no limitations - History of Present Illness Initial comments: Patient is a 22-year-old female with no past medical history who presents to the emergency room with reported left flank pain. States the pain has been present for the past 3 days. She has associated dysuria and increased frequency of voiding. No history of kidney stones. Denies hematuria. No abnormal vaginal bleeding or discharge. No concern for . Denies any changes in her bowel habits. She has not taken anything for pain at home. No recent trauma. No other alleviating, precipitating or modifying factors - Related Data Home Medications Medication Instructions Recorded Confirmed Albuterol Sulfate [Ventolin HFA] 1 - 2 puff INHALATION RT-Q6H PRN 12/21/18 12/21/18 Dextroamphetamine/Amphetamine 30 mg PO BID 12/21/18 12/21/18 [Adderall] Loratadine [Claritin] 10 mg PO DAILY 12/21/18 12/21/18 Vienva 0.1/0.2mg 1 tab PO DAILY 12/21/18 12/21/18 Previous Rx's Medication Instructions Recorded Clindamycin HCl 300 mg PO Q6HR #40 cap 10/28/19 Triamcinolone 0.1% Cream [Kenalog 1 applicatio TOPICAL BID #15 gram 10/28/19 0.1% Cream] Mupirocin 2% Oint [Bactroban 2% 1 applic TOPICAL TID 5 Days #15 gm 01/18/20 Oint] lidocaine HCL [Lidocaine HCl 5 ml MM Q6H PRN #50 ml 01/18/20 Viscous] valACYclovir [Valtrex] 1,000 mg PO BID 1 Days #4 tab 01/18/20 HYDROcodone/APAP 5-325MG [Ekron 5] 1 each PO Q6HR PRN #12 tab 09/25/20 Allergies Allergy/AdvReac Type Severity Reaction Status Date / Time methylphenidate HCl Allergy Unknown Verified 09/25/20 19:20 [From Metadate CD] sulfamethoxazole Allergy Rash/Hives Verified 09/25/20 19:20 [From Bactrim] trimethoprim [From Bactrim] Allergy Rash/Hives Verified 09/25/20 19:20 cephalexin [From Keflex] AdvReac Nausea & Verified 09/25/20 19:20 Vomiting Review of Systems ROS Statement: Those systems with pertinent positive or pertinent negative responses have been documented in the HPI. ROS Other: All systems not noted in ROS Statement are negative. Past Medical History Past Medical History: No Reported History Additional Past Medical History / Comment(s): hypoglycemia, elevated liver enzymes History of Any Multi-Drug Resistant Organisms: None Reported Past Surgical History: Tonsillectomy Additional Past Surgical History / Comment(s): oral surgery Past Anesthesia/Blood Transfusion Reactions: No Reported Reaction Past Psychological History: Anxiety, Bipolar, Depression Smoking Status: Current every day smoker, Vaper Past Alcohol Use History: Occasional Past Drug Use History: Marijuana - Past Family History Mother Family Medical History: Asthma, Thyroid Disorder General Exam Limitations: no limitations General appearance: alert, in no apparent distress Head exam: Present: atraumatic, normocephalic, normal inspection Eye exam: Present: normal appearance, PERRL, EOMI. Absent: scleral icterus, conjunctival injection, periorbital swelling ENT exam: Present: normal exam, mucous membranes moist Neck exam: Present: normal inspection. Absent: tenderness, meningismus, lymphadenopathy Respiratory exam: Present: normal lung sounds bilaterally. Absent: respiratory distress, wheezes, rales, rhonchi, stridor Cardiovascular Exam: Present: regular rate, normal rhythm, normal heart sounds. Absent: systolic murmur, diastolic murmur, rubs, gallop, clicks GI/Abdominal exam: Present: soft, normal bowel sounds. Absent: distended, tenderness, guarding, rebound, rigid Extremities exam: Present: normal inspection, full ROM, normal capillary refill. Absent: tenderness, pedal edema, joint swelling, calf tenderness Back exam: Present: CVA tenderness (L) Neurological exam: Present: alert, oriented X3, CN II-XII intact Psychiatric exam: Present: normal affect, normal mood Skin exam: Present: warm, dry, intact, normal color. Absent: rash Course Vital Signs 09/25/20 19:13 Temperature 97.8 F Pulse Rate 100 Respiratory 18 Rate Blood Pressure 139/87 O2 Sat by Pulse 100 Oximetry Medical Decision Making - Medical Decision Making On arrival patient's placed in room 26. H?istory and physical exam is performed. IV is established. Laboratory studies were conducted. Patient was given Toradol for pain control. Laboratory studies are reviewed. Urinalysis is positive for leukocyte esterase however no bacteria. CT is performed due to the significance patient's pain which does demonstrate bilateral hydronephrosis and mild hydroureter. Results are discussed the patient. She states her pain is completely resolved at this time. I did discuss diagnosis, differential and treatment options. At this time patient will be discharged home and is to follow-up with primary care doctor 2-4 days. She was given urology follow-up for her hydronephrosis. Return to the emergency room for any worsening symptoms. Patient discharged in stable condition - Lab Data Result diagrams: 09/25/20 20:32 09/25/20 20:32 Lab Results 09/25/20 09/25/20 09/25/20 Range/Units 19:28 19:28 20:32 WBC 10.9 H (3.8-10.6) k/uL RBC 4.51 (3.80-5.40) m/uL Hgb 12.0 (11.4-16.0) gm/dL Hct 36.1 (34.0-46.0) % MCV 79.9 L (80.0-100.0) fL MCH 26.6 (25.0-35.0) pg MCHC 33.3 (31.0-37.0) g/dL RDW 15.8 H (11.5-15.5) % Plt Count 260 (150-450) k/uL MPV 8.9 Neutrophils % 71 % Lymphocytes % 18 % Monocytes % 6 % Eosinophils % 2 % Basophils % 1 % Neutrophils # 7.7 (1.3-7.7) k/uL Lymphocytes # 2.0 (1.0-4.8) k/uL Monocytes # 0.7 (0-1.0) k/uL Eosinophils # 0.2 (0-0.7) k/uL Basophils # 0.1 (0-0.2) k/uL Sodium (137-145) mmol/L Potassium (3.5-5.1) mmol/L Chloride (98-107) mmol/L Carbon Dioxide (22-30) mmol/L Anion Gap mmol/L BUN (7-17) mg/dL Creatinine (0.52-1.04) mg/dL Est GFR (CKD-EPI)AfAm (>60 ml/min/1.73 sqM) Est GFR (CKD-EPI)NonAf (>60 ml/min/1.73 sqM) Glucose (74-99) mg/dL Calcium (8.4-10.2) mg/dL Total Bilirubin (0.2-1.3) mg/dL AST (14-36) U/L ALT (4-34) U/L Alkaline Phosphatase (38-126) U/L Total Protein (6.3-8.2) g/dL Albumin (3.5-5.0) g/dL Lipase (23-300) U/L Urine Color Colorless Urine Appearance Clear (Clear) Urine pH 7.0 (5.0-8.0) Ur Specific [place] 1.000 L (1.001-1.035) Urine Protein Negative (Negative) Urine Glucose (UA) Negative (Negative) Urine Ketones Negative (Negative) Urine Blood Negative (Negative) Urine Nitrite Negative (Negative) Urine Bilirubin Negative (Negative) Urine Urobilinogen <2.0 (<2.0) mg/dL Ur Leukocyte Esterase Moderate H (Negative) Urine RBC <1 (0-5) /hpf Urine WBC 1 (0-5) /hpf Urine HCG, Qual Not Detected (Not Detectd) 09/25/20 Range/Units 20:32 WBC (3.8-10.6) k/uL RBC (3.80-5.40) m/uL Hgb (11.4-16.0) gm/dL Hct (34.0-46.0) % MCV (80.0-100.0) fL MCH (25.0-35.0) pg MCHC (31.0-37.0) g/dL RDW (11.5-15.5) % Plt Count (150-450) k/uL MPV Neutrophils % % Lymphocytes % % Monocytes % % Eosinophils % % Basophils % % Neutrophils # (1.3-7.7) k/uL Lymphocytes # (1.0-4.8) k/uL Monocytes # (0-1.0) k/uL Eosinophils # (0-0.7) k/uL Basophils # (0-0.2) k/uL Sodium 131 L (137-145) mmol/L Potassium 3.8 (3.5-5.1) mmol/L Chloride 97 L (98-107) mmol/L Carbon Dioxide 26 (22-30) mmol/L Anion Gap 8 mmol/L BUN 9 (7-17) mg/dL Creatinine 0.81 (0.52-1.04) mg/dL Est GFR (CKD-EPI)AfAm >90 (>60 ml/min/1.73 sqM) Est GFR (CKD-EPI)NonAf >90 (>60 ml/min/1.73 sqM) Glucose 89 (74-99) mg/dL Calcium 9.4 (8.4-10.2) mg/dL Total Bilirubin 0.8 (0.2-1.3) mg/dL AST 32 (14-36) U/L ALT 24 (4-34) U/L Alkaline Phosphatase 136 H (38-126) U/L Total Protein 7.4 (6.3-8.2) g/dL Albumin 4.5 (3.5-5.0) g/dL Lipase 26 (23-300) U/L Urine Color Urine Appearance (Clear) Urine pH (5.0-8.0) Ur Specific [place] (1.001-1.035) Urine Protein (Negative) Urine Glucose (UA) (Negative) Urine Ketones (Negative) Urine Blood (Negative) Urine Nitrite (Negative) Urine Bilirubin (Negative) Urine Urobilinogen (<2.0) mg/dL Ur Leukocyte Esterase (Negative) Urine RBC (0-5) /hpf Urine WBC (0-5) /hpf Urine HCG, Qual (Not Detectd) Disposition Clinical Impression: Flank pain, Hydronephrosis Disposition: HOME SELF-CARE Condition: Stable Instructions (If sedation given, give patient instructions): Flank Pain (ED) Additional Instructions: Please follow-up with your primary care doctor in 2-4 days. Follow-up with urologist. You may need an ultrasound of your kidneys. Return to the emergency room for any new or worsening symptoms Prescriptions: HYDROcodone/APAP 5-325MG [[place] 5] 1 each PO Q6HR PRN #12 tab PRN Reason: Pain Is patient prescribed a controlled substance at d/c from ED?: Yes When asked, does pt state using other controlled substances?: No If prescribed controlled substance>3 days was MAPS reviewed?: Prescribed <3 Days If opioid is for acute pain is fill amount 7 days or less?: Yes If Rx opioid, was Start Talking consent form obtained?: Yes Referrals: Greg Grewal DO [Primary Care Provider] - 1-2 days Bebeto Darby MD [STAFF PHYSICIAN] - 1-2 days Time of Disposition: 21:35
== END 2020-09-25 21:45 | disposition home or self-care (01) ==
LOC: EC 19:09
DX: N13.30 Unspecified hydronephrosis (principal); F31.9 Bipolar disorder, unspecified; F41.9 Anxiety disorder, unspecified; F17.290 Nicotine dependence, other tobacco product, uncomplicated; F12.90 Cannabis use, unspecified, uncomplicated
CPT/HCPCS: 36415; 80053; 83690; 85025; 81001; 81025; 74177; 99284; 96374; J1885; Q9967

== ENCOUNTER 2021-04-13 02:35 | Emergency (ER) | payer OTHER ==
[2021-04-13 02:43] VITALS: BP 134/84; PULSE 99; RESP 16; TEMP 97.1
--- NOTE | 2021-04-13 04:58 | ED ---
ENT HPI - General Chief complaint: Dental/Oral Stated complaint: Dental Pain Time Seen by Provider: 04/13/21 04:44 Source: patient Mode of arrival: ambulatory - History of Present Illness Initial comments: This patient is 30-year-old woman who presents to be evaluated for some mild swelling noted in her left cheek. She states that this would come on tonight. She states that she Put some pressure on the cheek and then she felt very mild pop and had a little bit of drainage from the cheek, she indicates the salivary duct. While she is being evaluated she also wanted her left maxillary, #13 tooth looked at. The patient states she has long-standing decay to that tooth. Neck currently having pain there. No retro-orbital or eye pain. No fever or chills. No neck pain or swelling. No change in speech or swallowing MD complaint: tooth pain, other -: days(s) Location: tooth # (13) Severity: mild Quality: dull Consistency: now resolved Improves with: none Worsens with: none Context- Dental: history of dental caries Associated Symptoms: other - Related Data Home Medications Medication Instructions Recorded Confirmed Albuterol Sulfate [Ventolin HFA] 1 - 2 puff INHALATION RT-Q6H PRN 12/21/18 12/21/18 Dextroamphetamine/Amphetamine 30 mg PO BID 12/21/18 12/21/18 [Adderall] Loratadine [Claritin] 10 mg PO DAILY 12/21/18 12/21/18 Vienva 0.1/0.2mg 1 tab PO DAILY 12/21/18 12/21/18 Previous Rx's Medication Instructions Recorded Clindamycin HCl 300 mg PO Q6HR #40 cap 10/28/19 Triamcinolone 0.1% Cream [Kenalog 1 applicatio TOPICAL BID #15 gram 10/28/19 0.1% Cream] Mupirocin 2% Oint [Bactroban 2% 1 applic TOPICAL TID 5 Days #15 gm 01/18/20 Oint] lidocaine HCL [Lidocaine HCl 5 ml MM Q6H PRN #50 ml 01/18/20 Viscous] valACYclovir [Valtrex] 1,000 mg PO BID 1 Days #4 tab 01/18/20 HYDROcodone/APAP 5-325MG [[place] 5] 1 each PO Q6HR PRN #12 tab 09/25/20 Amoxicillin 875 mg PO Q12HR #14 tablet 04/13/21 Allergies Allergy/AdvReac Type Severity Reaction Status Date / Time azithromycin Allergy Rash/Hives Verified 04/13/21 02:44 methylphenidate HCl Allergy Unknown Verified 04/13/21 02:44 [From Metadate CD] sulfamethoxazole Allergy Rash/Hives Verified 04/13/21 02:44 [From Bactrim] trimethoprim [From Bactrim] Allergy Rash/Hives Verified 04/13/21 02:44 cephalexin [From Keflex] AdvReac Nausea & Verified 04/13/21 02:44 Vomiting Review of Systems ROS Statement: Those systems with pertinent positive or pertinent negative responses have been documented in the HPI. ROS Other: All systems not noted in ROS Statement are negative. Constitutional: Denies: fever, chills Eyes: Denies: eye pain, vision change ENT: Reports: dental pain, other (Left cheek) Respiratory: Denies: cough, dyspnea Cardiovascular: Denies: palpitations Neurological: Denies: headache Past Medical History Past Medical History: No Reported History Additional Past Medical History / Comment(s): hypoglycemia, elevated liver enzymes History of Any Multi-Drug Resistant Organisms: None Reported Past Surgical History: Tonsillectomy Additional Past Surgical History / Comment(s): oral surgery Past Anesthesia/Blood Transfusion Reactions: No Reported Reaction Past Psychological History: Anxiety, Bipolar, Depression Smoking Status: Current every day smoker, Vaper Past Alcohol Use History: Occasional Past Drug Use History: Marijuana - Past Family History Mother Family Medical History: Asthma, Thyroid Disorder General Exam General appearance: alert, in no apparent distress Head exam: Present: atraumatic, normocephalic Eye exam: Present: normal appearance, PERRL, EOMI. Absent: scleral icterus, conjunctival injection, nystagmus ENT exam: Present: mucous membranes moist, TM's normal bilaterally, normal external ear exam, other (There is caries of tooth #13 down to the gumline. No abscess. No erythema. The patient does have some minimal swelling and tenderness over the left parotid. No erythema, warmth or active drainage.) Neck exam: Present: normal inspection, full ROM. Absent: tenderness, meningismus, lymphadenopathy Skin exam: Present: warm, dry, intact, normal color. Absent: rash Course Vital Signs 02/02/22 02:37 Temperature 97.1 F L Pulse Rate 99 Respiratory 16 Rate Blood Pressure 134/84 O2 Sat by Pulse 100 Oximetry Disposition Clinical Impression: Dental caries, Sialadenitis Disposition: HOME SELF-CARE Condition: Good Instructions (If sedation given, give patient instructions): Parotid Duct Obstruction (ED), Toothache (ED) Prescriptions: Amoxicillin 875 mg PO Q12HR #14 tablet Is patient prescribed a controlled substance at d/c from ED?: No Referrals: Greg Grewal DO [Primary Care Provider] - 1-2 days
== END 2021-04-13 06:00 | disposition home or self-care (01) ==
LOC: EC 02:35
DX: K02.9 Dental caries, unspecified (principal); K11.20 Sialoadenitis, unspecified; F31.9 Bipolar disorder, unspecified; F41.9 Anxiety disorder, unspecified; F17.290 Nicotine dependence, other tobacco product, uncomplicated; F12.90 Cannabis use, unspecified, uncomplicated; Z79.51 Long term (current) use of inhaled steroids; Z79.899 Other long term (current) drug therapy
CPT/HCPCS: 99282

== ENCOUNTER 2021-09-19 10:41 | Emergency (ER) | payer OTHER ==
[2021-09-19 11:12] VITALS: BP 132/78; PULSE 82; RESP 18; TEMP 98.2
--- NOTE | 2021-09-19 11:47 | ED ---
General Adult HPI - General Chief complaint: Back Pain/Injury Stated complaint: Back pain Time Seen by Provider: 09/19/21 11:23 Source: patient, RN notes reviewed, old records reviewed Mode of arrival: ambulatory Limitations: no limitations - History of Present Illness Initial comments: 31-year-old female with 2 weeks of right-sided low back pain. Patient believes she may have injured herself while at work. 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 She denies a specific fall or trauma. She denies bowel or bladder incontinence. Denies numbness or tingling to the lower extremities. No fevers. She has been stretching and taking Motrin with only minimal relief. - Related Data Home Medications Medication Instructions Recorded Confirmed Albuterol Sulfate [Ventolin HFA] 1 - 2 puff INHALATION RT-Q6H PRN 12/21/18 12/21/18 Dextroamphetamine/Amphetamine 30 mg PO BID 12/21/18 12/21/18 [Adderall] Loratadine [Claritin] 10 mg PO DAILY 12/21/18 12/21/18 Vienva 0.1/0.2mg 1 tab PO DAILY 12/21/18 12/21/18 Previous Rx's Medication Instructions Recorded Triamcinolone 0.1% Cream [Kenalog 1 applicatio TOPICAL BID #15 gram 10/28/19 0.1% Cream] clindamycin HCL [Clindamycin HCl] 300 mg PO Q6HR #40 cap 10/28/19 Mupirocin 2% Oint [Bactroban 2% 1 applic TOPICAL TID 5 Days #15 gm 01/18/20 Oint] lidocaine HCL [Lidocaine HCl 5 ml MM Q6H PRN #50 ml 01/18/20 Viscous] valACYclovir HCL [Valtrex] 1,000 mg PO BID 1 Days #4 tab 01/18/20 HYDROcodone/APAP 5-325MG [[place] 5] 1 each PO Q6HR PRN #12 tab 09/25/20 Amoxicillin 875 mg PO Q12HR #14 tablet 04/13/21 Cyclobenzaprine [Flexeril] 5 mg PO HS 3 Days #3 tab 09/19/21 Ibuprofen [Motrin] 600 mg PO Q8HR PRN #24 tab 09/19/21 Allergies Allergy/AdvReac Type Severity Reaction Status Date / Time azithromycin Allergy Rash/Hives Verified 09/19/21 11:12 methylphenidate HCl Allergy Unknown Verified 09/19/21 11:12 [From Metadate CD] sulfamethoxazole Allergy Rash/Hives Verified 09/19/21 11:12 [From Bactrim] trimethoprim [From Bactrim] Allergy Rash/Hives Verified 09/19/21 11:12 cephalexin [From Keflex] AdvReac Nausea & Verified 09/19/21 11:12 Vomiting Review of Systems ROS Statement: Those systems with pertinent positive or pertinent negative responses have been documented in the HPI. ROS Other: All systems not noted in ROS Statement are negative. Past Medical History Past Medical History: No Reported History Additional Past Medical History / Comment(s): hypoglycemia, elevated liver enzymes History of Any Multi-Drug Resistant Organisms: None Reported Past Surgical History: Tonsillectomy Additional Past Surgical History / Comment(s): oral surgery Past Anesthesia/Blood Transfusion Reactions: No Reported Reaction Past Psychological History: Anxiety, Bipolar, Depression Smoking Status: Current every day smoker, Vaper Past Alcohol Use History: Occasional Past Drug Use History: Marijuana - Past Family History Mother Family Medical History: Asthma, Thyroid Disorder General Exam Limitations: no limitations General appearance: alert, in no apparent distress Head exam: Present: atraumatic, normocephalic Eye exam: Present: normal appearance, PERRL ENT exam: Present: normal exam Neck exam: Present: normal inspection. Absent: tenderness Respiratory exam: Present: normal lung sounds bilaterally. Absent: respiratory distress, wheezes Cardiovascular Exam: Present: regular rate, normal rhythm GI/Abdominal exam: Present: soft. Absent: distended, tenderness Extremities exam: Present: normal inspection, normal capillary refill Back exam: Present: paraspinal tenderness (Right-sided). Absent: vertebral tenderness Neurological exam: Present: alert, oriented X3, CN II-XII intact, normal gait. Absent: motor sensory deficit Psychiatric exam: Present: normal affect, normal mood Skin exam: Present: warm, dry, intact. Absent: cyanosis, diaphoretic Course Vital Signs 09/19/21 11:09 Temperature 98.2 F Pulse Rate 82 Respiratory 18 Rate Blood Pressure 132/78 O2 Sat by Pulse 99 Oximetry Medical Decision Making - Medical Decision Making 31-year-old female with mechanical back pain, no red flags features, x-ray negative for acute process. Normal urinalysis.. Patient is not . She is prescribed Motrin and Flexeril. Return parameters discussed. - Lab Data Lab Results 09/19/21 09/19/21 Range/Units 11:36 11:36 Urine Color Yellow Urine Appearance Cloudy H (Clear) Urine pH 6.0 (5.0-8.0) Ur Specific [place] 1.027 (1.001-1.035) Urine Protein Trace H (Negative) Urine Glucose (UA) Negative (Negative) Urine Ketones Negative (Negative) Urine Blood Negative (Negative) Urine Nitrite Negative (Negative) Urine Bilirubin Negative (Negative) Urine Urobilinogen <2.0 (<2.0) mg/dL Ur Leukocyte Esterase Negative (Negative) Urine RBC 1 (0-5) /hpf Urine WBC 1 (0-5) /hpf Ur Squamous Epith Cells 9 H (0-4) /hpf Urine Mucus Occasional H (None) /hpf Urine HCG, Qual Not Detected (Not Detectd) Disposition Clinical Impression: Mechanical back pain Disposition: HOME SELF-CARE Condition: Good Instructions (If sedation given, give patient instructions): Acute Low Back Pain (ED) Prescriptions: Cyclobenzaprine [Flexeril] 5 mg PO HS 3 Days #3 tab Ibuprofen [Motrin] 600 mg PO Q8HR PRN #24 tab PRN Reason: Pain Is patient prescribed a controlled substance at d/c from ED?: No Referrals: None,Stated [Primary Care Provider] - 1-2 days Jamin Pineda MD [REFERRING] - 1-2 days Time of Disposition: 12:34
[2021-09-19 11:59] LABS: Appearance,Urine Cloudy (Clear); Bilirubin,Urine Negative (Negative); Blood,Urine Negative (Negative); Color,Urine Yellow; Glucose,Urine (UA) Negative (Negative); Ketones,Urine Negative (Negative); Leukocyte Esterase,Urine Negative (Negative); Mucus,Urine Occasional /hpf; Nitrite,Urine Negative (Negative); Protein,Urine Trace (Negative); RBC,Urine 1 /hpf (0-5); Specific Gravity,Urine 1.027 (1.001-1.035); Squamous Epithelial Cell,Urine 9 /hpf (0-4); Urobilinogen,Urine <2.0 mg/dL (<2.0); WBC,Urine 1 /hpf (0-5)
--- NOTE | 2021-09-19 12:27 | XR ---
EXAMINATION TYPE: XR lumbar spine 2 or 3V DATE OF EXAM: 09/19/2021 12:10 PM INDICATION: Patient age:Female; 31 years old; Reason for study: pain; PH[facility]. COMPARISON: CT abdomen and pelvis 09/25/2020 TECHNIQUE: Frontal, lateral and coned in L5-S1 lateral views of the spine. FINDINGS: No evidence of any acute osseous pathology. There are 5 nonrib-bearing lumbar vertebral bod ies. No evidence of loss of vertebral body height is seen. There is normal alignment of the lumbar ve rtebral bodies. IMPRESSION: No acute process.
== END 2021-09-19 12:39 | disposition home or self-care (01) ==
LOC: EC 10:41
DX: M54.50 Low back pain, unspecified (principal); F17.290 Nicotine dependence, other tobacco product, uncomplicated; Z88.1 Allergy status to other antibiotic agents; Z88.2 Allergy status to sulfonamides; Z88.8 Allergy status to other drugs, medicaments and biological substances
CPT/HCPCS: 72100; 81001; 81025; 99283

== ENCOUNTER 2022-02-14 15:26 | Emergency (ER) | payer OTHER ==
[2022-02-14 15:44] VITALS: BP 126/57; PULSE 104; RESP 20; TEMP 98
[2022-02-14 16:26] LABS: Basophils # (A) 0.1 k/uL (0-0.2); Basophils % (A) 1 %; Eosinophils # (A) 0.1 k/uL (0-0.7); Eosinophils % (A) 1 %; HCT 38.1 % (34.0-46.0); Lymphocytes % (A) 19 %; MCH 30.3 pg (25.0-35.0); MCHC 34.1 g/dL (31.0-37.0); MCV 88.7 fL (80.0-100.0); Mean Platelet Volume 9.3; Monocytes # (A) 0.6 k/uL (0-1.0); Monocytes % (A) 6 %; Neutrophils # (A) 7.2 k/uL (1.3-7.7); Neutrophils % (A) 71 %; Platelet Count 301 k/uL (150-450); RBC 4.29 m/uL (3.80-5.40); RDW 12.4 % (11.5-15.5); WBC 10.1 k/uL (3.8-10.6)
[2022-02-14 16:27] LABS: ALT 61 U/L (4-34); AST 55 U/L (14-36); African American GFR (CKD) >90 (>60 ml/min/1.73 sqM); Albumin 4.4 g/dL (3.5-5.0); Alkaline Phosphatase 140 U/L (38-126); Anion Gap 10 mmol/L; Blood Urea Nitrogen 4 mg/dL (7-17); Calcium 8.9 mg/dL (8.4-10.2); Carbon Dioxide 22 mmol/L (22-30); Chloride 105 mmol/L (98-107); Glucose 112 mg/dL (74-99); Non-African American GFR(CKD) >90 (>60 ml/min/1.73 sqM); Sodium 137 mmol/L (137-145); Total Bilirubin 0.6 mg/dL (0.2-1.3); Total Protein 7.2 g/dL (6.3-8.2)
== END 2022-02-14 18:44 | disposition left against medical advice (07) ==
LOC: EC 15:26
DX: Z53.21 Procedure and treatment not carried out due to patient leaving prior to being seen by health care provider (principal)
CPT/HCPCS: 36415; 80053; 84702; 85025; 99499

== ENCOUNTER 2022-02-28 16:11 | Emergency (ER) | payer OTHER ==
[2022-02-28 16:17] VITALS: RESP 16; TEMP 98
--- NOTE | 2022-02-28 16:40 | ED ---
Abdominal Pain HPI - General Chief Complaint: Abdominal Pain Stated Complaint: 9 wks preg, upper abd pain Time Seen by Provider: 02/28/22 16:28 Source: patient, RN notes reviewed, old records reviewed Mode of arrival: ambulatory Limitations: no limitations - History of Present Illness Initial Comments: This is a well-appearing 31-year-old female that presents to the emergency room with epigastric abdominal pain since Sunday after eating steak and potatoes. She states it feels like she was "punched in her solar plexus ". Denies any vomiting diarrhea or fevers. She states she tried Maalox and Mylanta with no improvement. She tried doing bicycling exercises with no relief. She denies vaginal bleeding or pelvic cramping. She called Dr. Vidal who recommended she come to the emergency room for evaluation. She is a , has had 4 miscarriages. MD Complaint: abdominal pain -: days(s) (4) Location: epigastric Radiation: none Severity scale (1-10): 4 Quality: sharp Consistency: constant Improves With: nothing Worsens With: nothing Associated Symptoms: denies other symptoms Treatments Prior to Arrival: antacids - Related Data Patient : Yes Number of weeks : 6 Home Medications Medication Instructions Recorded Confirmed Albuterol Sulfate [Ventolin HFA] 1 - 2 puff INHALATION RT-Q6H PRN 12/21/18 12/21/18 Dextroamphetamine/Amphetamine 30 mg PO BID 12/21/18 12/21/18 [Adderall] Loratadine [Claritin] 10 mg PO DAILY 12/21/18 12/21/18 Vienva 0.1/0.2mg 1 tab PO DAILY 12/21/18 12/21/18 Previous Rx's Medication Instructions Recorded Triamcinolone 0.1% Cream [Kenalog 1 applicatio TOPICAL BID #15 gram 10/28/19 0.1% Cream] clindamycin HCL [Clindamycin HCl] 300 mg PO Q6HR #40 cap 10/28/19 Mupirocin 2% Oint [Bactroban 2% 1 applic TOPICAL TID 5 Days #15 gm 01/18/20 Oint] lidocaine HCL [Lidocaine HCl 5 ml MM Q6H PRN #50 ml 01/18/20 Viscous] valACYclovir HCL [Valtrex] 1,000 mg PO BID 1 Days #4 tab 01/18/20 HYDROcodone/APAP 5-325MG [[place] 5] 1 each PO Q6HR PRN #12 tab 09/25/20 Amoxicillin 875 mg PO Q12HR #14 tablet 04/13/21 Cyclobenzaprine [Flexeril] 5 mg PO HS 3 Days #3 tab 09/19/21 Ibuprofen [Motrin] 600 mg PO Q8HR PRN #24 tab 09/19/21 Famotidine [Pepcid] 20 mg PO BID #28 tablet 02/28/22 Allergies Allergy/AdvReac Type Severity Reaction Status Date / Time azithromycin Allergy Rash/Hives Verified 09/19/21 11:12 methylphenidate HCl Allergy Unknown Verified 09/19/21 11:12 [From Metadate CD] sulfamethoxazole Allergy Rash/Hives Verified 09/19/21 11:12 [From Bactrim] trimethoprim [From Bactrim] Allergy Rash/Hives Verified 09/19/21 11:12 cephalexin [From Keflex] AdvReac Nausea & Verified 09/19/21 11:12 Vomiting Review of Systems ROS Statement: Those systems with pertinent positive or pertinent negative responses have been documented in the HPI. ROS Other: All systems not noted in ROS Statement are negative. Past Medical History Past Medical History: No Reported History Additional Past Medical History / Comment(s): hypoglycemia, elevated liver enzymes History of Any Multi-Drug Resistant Organisms: None Reported Past Surgical History: Tonsillectomy Additional Past Surgical History / Comment(s): oral surgery Past Anesthesia/Blood Transfusion Reactions: No Reported Reaction Past Psychological History: Anxiety, Bipolar, Depression Smoking Status: Current every day smoker, Vaper Past Alcohol Use History: Occasional Past Drug Use History: Marijuana - Past Family History Mother Family Medical History: Asthma, Thyroid Disorder General Exam Limitations: no limitations General appearance: alert, in no apparent distress Head exam: Present: atraumatic Eye exam: Absent: scleral icterus, conjunctival injection Respiratory exam: Absent: respiratory distress, accessory muscle use Cardiovascular Exam: Present: regular rate GI/Abdominal exam: Present: soft, tenderness (Epigastric). Absent: distended, guarding, rebound, rigid Extremities exam: Present: full ROM, normal capillary refill. Absent: tenderness, pedal edema, joint swelling, calf tenderness Neurological exam: Present: alert, oriented X3 Psychiatric exam: Present: normal affect, normal mood Skin exam: Present: warm, dry, normal color. Absent: cyanosis, diaphoretic, petechiae, pallor Course Vital Signs 02/28/22 02/28/22 16:15 18:19 Temperature 98 F Pulse Rate 82 88 Respiratory 16 16 Rate Blood Pressure 122/73 119/81 O2 Sat by Pulse 98 100 Oximetry Medical Decision Making - Medical Decision Making Patient presents with epigastric abdominal pain since Sunday after eating steak and potatoes. States feels like gas. Describes pain as feeling like she was "punched in her solar plexus ". Denies any vomiting diarrhea or fevers. She denies vaginal bleeding or pelvic cramping. She called Dr. Vidal who recommended she come to the emergency room for evaluation. She is a , has had 4 spontaneous miscarriages. Urinalysis shows cloudy urine with small leukocyte esterase, squamous cells and occasional bacteria. Due to patient's multiple ALLERGIES to antibiotics and did discuss treatment with Dr. Wiggins who recommended urine be sent for culture and holding treatment at this time. Ultrasound interpreted by me shows an intrauterine . Radiologist's interpretation single live intrauterine gestation with a crown- rump length of 2.1 cm corresponding to 8 week 5 day old fetus, heart rate 177. This is likely gastritis. She was instructed to take Pepcid twice a day as prescribed. She was also directed to take Maalox or Tums as needed along with her Zofran for any nausea. Increase her fluid intake. Return to the emergency room with any new or concerning symptoms. Case discussed with Dr. Wiggins - Lab Data Lab Results 02/28/22 02/28/22 Range/Units 17:02 17:02 Urine Color Yellow Urine Appearance Cloudy H (Clear) Urine pH 6.5 (5.0-8.0) Ur Specific [place] 1.026 (1.001-1.035) Urine Protein Trace H (Negative) Urine Glucose (UA) Negative (Negative) Urine Ketones Negative (Negative) Urine Blood Negative (Negative) Urine Nitrite Negative (Negative) Urine Bilirubin Negative (Negative) Urine Urobilinogen <2.0 (<2.0) mg/dL Ur Leukocyte Esterase Small H (Negative) Urine RBC 2 (0-5) /hpf Urine WBC 4 (0-5) /hpf Ur Squamous Epith Cells 19 H (0-4) /hpf Amorphous Sediment Few H (None) /hpf Urine Bacteria Occasional H (None) /hpf Urine Mucus Many H (None) /hpf Urine HCG, Qual Detected (Not Detectd) Disposition Clinical Impression: Abdominal pain, Disposition: HOME SELF-CARE Condition: Good Instructions (If sedation given, give patient instructions): Abdominal Pain in (ED) Additional Instructions: Continue taking Tylenol as needed for any pain or discomfort. You can also take Pepcid 20 mg twice a day in addition to your Zofran and Maalox. Follow-up with your primary care doctor and [employer] within the next week. Return to the emergency room with any new or concerning symptoms. Prescriptions: Famotidine [Pepcid] 20 mg PO BID #28 tablet Is patient prescribed a controlled substance at d/c from ED?: No Referrals: None,Stated [Primary Care Provider] - 1-2 days Time of Disposition: 18:01
[2022-02-28 17:38] LABS: Amorphous Sediment,Urine Few /hpf; Appearance,Urine Cloudy (Clear); Bacteria,Urine Occasional /hpf; Bilirubin,Urine Negative (Negative); Blood,Urine Negative (Negative); Color,Urine Yellow; Glucose,Urine (UA) Negative (Negative); Ketones,Urine Negative (Negative); Leukocyte Esterase,Urine Small (Negative); Mucus,Urine Many /hpf; Nitrite,Urine Negative (Negative); PH, Urine 6.5 (5.0-8.0); Protein,Urine Trace (Negative); RBC,Urine 2 /hpf (0-5); Specific Gravity,Urine 1.026 (1.001-1.035); Squamous Epithelial Cell,Urine 19 /hpf (0-4); Urobilinogen,Urine <2.0 mg/dL (<2.0); WBC,Urine 4 /hpf (0-5)
[2022-02-28] MEDS ORDERED: cefTRIAXone IN SWFI 1,000 MG/10 ML SYRINGE IVP STA (17:41)
--- NOTE | 2022-02-28 17:44 | US ---
EXAMINATION TYPE: Transabdominal DATE OF EXAM: 02/28/2022 5:27 PM COMPARISON: NONE CLINICAL HISTORY: abd pain 6 weeks preg. Epigastric pain. . Positive beta hCG test. EXAM PERFORMED: Transabdominal (TA) EXAM MEASUREMENTS: GESTATIONAL AGE / DATING Physician Established: Not yet established Dates by LMP: 12/29/21 (8 weeks/5 days) EDC: 10/05/22 Dates by First Scan: No previous this is first scan Dates by Current Scan for: (8 weeks/5 days) EDC: 10/05/22 MATERNAL ANATOMY Uterus: 10.1 x 8.5 x 6.6cm. Fibroid seen measuring 3.0 x 3.2 x 2.2cm Right Ovary: 1.8 x 2.0 x 1.2cm Left Ovary: 2.7 x 2.3 x 2.0cm Post CDS / Adnexa: wnl Presence of free fluid: No Presence of corpus luteal cyst: Possibly one in the left ovary Presence of subchorionic bleed: No GESTATION / SURVEY CRL: 2.1cm (8 weeks/5 days) Yolk Sac (normal less than 6mm): 3.6mm Heart Rate: 177 bpm Rhythm: Normal IUP: Viable IUP Date of LMP: 12/31/21 Beta HcG (if available): HcG was 87,891 on 02/14/22. Labwork for today is pending Viable IUP visualized. Single live intrauterine gestation as gestational sac, yolk sac, and pole are seen. No free flu id in pelvic cul-de-sac. Both ovaries are seen. No suspicious extra ovarian adnexal masses. IMPRESSION: Single live intrauterine gestation is confirmed. Mean crown-rump length is 2.1 cm corresp onding to 8 week 5 day old fetus.
[2022-02-28 18:20] VITALS: BP 119/81; PULSE 88
== END 2022-02-28 18:20 | disposition home or self-care (01) ==
LOC: EC 16:11
DX: O26.891 Other specified pregnancy related conditions, first trimester (principal); O99.341 Other mental disorders complicating pregnancy, first trimester; O99.331 Smoking (tobacco) complicating pregnancy, first trimester; R10.13 Epigastric pain; F41.9 Anxiety disorder, unspecified; F31.9 Bipolar disorder, unspecified; F17.290 Nicotine dependence, other tobacco product, uncomplicated; Z88.0 Allergy status to penicillin; Z88.2 Allergy status to sulfonamides; Z88.8 Allergy status to other drugs, medicaments and biological substances; Z88.1 Allergy status to other antibiotic agents; Z3A.09 9 weeks gestation of pregnancy
CPT/HCPCS: 76801; 81001; 81025; 99284

== ENCOUNTER 2022-04-01 17:49 | Emergency (ER) | payer OTHER ==
[2022-04-01 17:56] VITALS: BP 110/71; PULSE 71; RESP 16; TEMP 97.8
[2022-04-01 18:43] LABS: Basophils # (A) 0.1 k/uL (0-0.2); Basophils % (A) 1 %; Eosinophils # (A) 0.3 k/uL (0-0.7); Eosinophils % (A) 3 %; HCT 36.8 % (34.0-46.0); HGB 12.6 gm/dL (11.4-16.0); Lymphocytes # (A) 1.9 k/uL (1.0-4.8); Lymphocytes % (A) 22 %; MCH 30.2 pg (25.0-35.0); MCHC 34.4 g/dL (31.0-37.0); MCV 87.8 fL (80.0-100.0); Mean Platelet Volume 9.2; Monocytes # (A) 0.4 k/uL (0-1.0); Monocytes % (A) 5 %; Neutrophils # (A) 5.9 k/uL (1.3-7.7); Neutrophils % (A) 67 %; Platelet Count 218 k/uL (150-450); RBC 4.19 m/uL (3.80-5.40); WBC 8.8 k/uL (3.8-10.6)
[2022-04-01] MEDS ORDERED: Acetaminophen-Codeine 300-30mg TAB PO STA (18:49)
[2022-04-01 18:53] LABS: ALT 33 U/L (4-34); AST 28 U/L (14-36); African American GFR (CKD) >90 (>60 ml/min/1.73 sqM); Albumin 3.9 g/dL (3.5-5.0); Alkaline Phosphatase 57 U/L (38-126); Anion Gap 6 mmol/L; Blood Urea Nitrogen 12 mg/dL (7-17); Calcium 8.9 mg/dL (8.4-10.2); Carbon Dioxide 26 mmol/L (22-30); Chloride 105 mmol/L (98-107); Glucose 85 mg/dL (74-99); Lipase 50 U/L (23-300); Non-African American GFR(CKD) >90 (>60 ml/min/1.73 sqM); Potassium 4.1 mmol/L (3.5-5.1); Sodium 137 mmol/L (137-145); Total Bilirubin 0.3 mg/dL (0.2-1.3); Total Protein 6.6 g/dL (6.3-8.2)
[2022-04-01 19:00] LABS: Amorphous Sediment,Urine Rare /hpf; Appearance,Urine Turbid (Clear); Bilirubin,Urine Negative (Negative); Blood,Urine Negative (Negative); Color,Urine Light Yellow; Glucose,Urine (UA) Negative (Negative); Ketones,Urine Negative (Negative); Leukocyte Esterase,Urine Large (Negative); Mucus,Urine Rare /hpf; Nitrite,Urine Negative (Negative); Protein,Urine Negative (Negative); RBC,Urine 3 /hpf (0-5); Specific Gravity,Urine 1.019 (1.001-1.035); Squamous Epithelial Cell,Urine 15 /hpf (0-4); Urobilinogen,Urine <2.0 mg/dL (<2.0); WBC,Urine 4 /hpf (0-5)
--- NOTE | 2022-04-01 20:01 | US ---
EXAMINATION TYPE: US abdomen APPY DATE OF EXAM: 04/01/2022 COMPARISON: NONE CLINICAL HISTORY: rlq pain. TECHNIQUE: Multiple sonographic images of the right lower quadrant were obtained with graded compress ion. FINDINGS: APPENDIX AP Diameter (normal < 6mm): 4.0 mm Measured outer wall to outer wall. Is the appendix seen in its entirety from the proximal cecum to distal end: No Is the appendix compressible: Yes Does the appendix wall appear hypervascular: No Is an appendicolith present: No Is there inflammatory changes or free fluid present: No MANAGER LINE NOTES: Limited visualization of partial appendix. Overlying bowel gas. Patient is 13 we eks . IMPRESSION: Partial visualization of the appendix. No evidence of appendicitis.
--- NOTE | 2022-04-01 20:02 | US ---
EXAMINATION TYPE: Transabdominal DATE OF EXAM: 04/01/2022 7:37 PM COMPARISON: NONE CLINICAL HISTORY: abd pain. Right lower quadrant pain. EXAM PERFORMED: Transabdominal (TA) EXAM MEASUREMENTS: GESTATIONAL AGE / DATING Dates by LMP: (13 weeks/2 days) EDC: 10/05/2022 Dates by First Scan: No data available. Dates by Current Scan for: (13 weeks/1 days) EDC: 10/06/2022 MATERNAL ANATOMY Uterus: wnl Right Ovary: wnl Left Ovary: Not visualized Post CDS / Adnexa: wnl Presence of free fluid: No Presence of corpus luteal cyst: No Presence of subchorionic bleed: No GESTATION / SURVEY CRL: 6.89cm (13 weeks/1 days) MSD: wnl Yolk Sac (normal less than 6mm): No Heart Rate: 167 bpm Rhythm: Normal IUP: Viable IUP Date of LMP: 12/29/2021 Beta HcG (if available): Unavailable IMPRESSION: The ultrasound gestational age is 13 weeks and 1 day. No complicating process seen.
--- NOTE | 2022-04-01 20:31 | ED ---
Abdominal Pain HPI - General Chief Complaint: Abdominal Pain Stated Complaint: Abd Pain,13wks Time Seen by Provider: 04/01/22 18:00 Source: patient, old records reviewed Mode of arrival: ambulatory - History of Present Illness Initial Comments: 31 year old female presents emergency Department with lower abdominal pain. She is 13 weeks . States that today she developed a sharp shooting pain in her right lower quadrant denies any provocative factors. She did take 2 Tylenol at home without any improvement in her symptoms. Denies any vaginal bleeding or discharge. No dysuria, hematuria or difficulty voiding. No obstipation, diarrhea, black or bloody stools. No fevers. Follows with Dr. Vidal. No other alleviating, precipitating or modifying factors. - Related Data Home Medications Medication Instructions Recorded Confirmed Albuterol Sulfate [Ventolin HFA] 1 - 2 puff INHALATION RT-Q6H PRN 12/21/18 12/21/18 Dextroamphetamine/Amphetamine 30 mg PO BID 12/21/18 12/21/18 [Adderall] Loratadine [Claritin] 10 mg PO DAILY 12/21/18 12/21/18 Vienva 0.1/0.2mg 1 tab PO DAILY 12/21/18 12/21/18 Previous Rx's Medication Instructions Recorded Triamcinolone 0.1% Cream [Kenalog 1 applicatio TOPICAL BID #15 gram 10/28/19 0.1% Cream] clindamycin HCL [Clindamycin HCl] 300 mg PO Q6HR #40 cap 10/28/19 Mupirocin 2% Oint [Bactroban 2% 1 applic TOPICAL TID 5 Days #15 gm 01/18/20 Oint] lidocaine HCL [Lidocaine HCl 5 ml MM Q6H PRN #50 ml 01/18/20 Viscous] valACYclovir HCL [Valtrex] 1,000 mg PO BID 1 Days #4 tab 01/18/20 HYDROcodone/APAP 5-325MG [[place] 5] 1 each PO Q6HR PRN #12 tab 09/25/20 Amoxicillin 875 mg PO Q12HR #14 tablet 04/13/21 Cyclobenzaprine [Flexeril] 5 mg PO HS 3 Days #3 tab 09/19/21 Ibuprofen [Motrin] 600 mg PO Q8HR PRN #24 tab 09/19/21 Famotidine [Pepcid] 20 mg PO BID #28 tablet 02/28/22 Allergies Allergy/AdvReac Type Severity Reaction Status Date / Time azithromycin Allergy Rash/Hives Verified 04/01/22 17:56 methylphenidate HCl Allergy Unknown Verified 04/01/22 17:56 [From Metadate CD] sulfamethoxazole Allergy Rash/Hives Verified 04/01/22 17:56 [From Bactrim] trimethoprim [From Bactrim] Allergy Rash/Hives Verified 04/01/22 17:56 cephalexin [From Keflex] AdvReac Nausea & Verified 04/01/22 17:56 Vomiting Review of Systems ROS Statement: Those systems with pertinent positive or pertinent negative responses have been documented in the HPI. ROS Other: All systems not noted in ROS Statement are negative. Past Medical History Past Medical History: No Reported History Additional Past Medical History / Comment(s): hypoglycemia, elevated liver enzymes History of Any Multi-Drug Resistant Organisms: None Reported Past Surgical History: Tonsillectomy Additional Past Surgical History / Comment(s): oral surgery Past Anesthesia/Blood Transfusion Reactions: No Reported Reaction Past Psychological History: Anxiety, Bipolar, Depression Smoking Status: Current every day smoker, Vaper Past Alcohol Use History: Occasional Past Drug Use History: Marijuana - Past Family History Mother Family Medical History: Asthma, Thyroid Disorder General Exam General appearance: alert, in no apparent distress Head exam: Present: atraumatic, normocephalic, normal inspection Eye exam: Present: normal appearance, PERRL, EOMI. Absent: scleral icterus, conjunctival injection, periorbital swelling ENT exam: Present: normal exam, mucous membranes moist Neck exam: Present: normal inspection. Absent: tenderness, meningismus, lymphadenopathy Respiratory exam: Present: normal lung sounds bilaterally. Absent: respiratory distress, wheezes, rales, rhonchi, stridor Cardiovascular Exam: Present: regular rate, normal rhythm, normal heart sounds. Absent: systolic murmur, diastolic murmur, rubs, gallop, clicks GI/Abdominal exam: Present: soft, normal bowel sounds. Absent: distended, tenderness, guarding, rebound, rigid Extremities exam: Present: normal inspection, full ROM, normal capillary refill. Absent: tenderness, pedal edema, joint swelling, calf tenderness Back exam: Present: normal inspection Neurological exam: Present: alert, oriented X3, CN II-XII intact Psychiatric exam: Present: normal affect, normal mood Skin exam: Present: warm, dry, intact, normal color. Absent: rash Course Vital Signs 04/01/22 17:53 Temperature 97.8 F Pulse Rate 71 Respiratory 16 Rate Blood Pressure 110/71 O2 Sat by Pulse 97 Oximetry Medical Decision Making - Medical Decision Making Was pt. sent in by a medical professional or institution? no Did you speak to anyone other than the patient for history? no Did you review nursing and triage notes? yes and I agree Were old charts reviewed? no Differential Diagnosis? MDM Differential Syncope: ectopic , miscarriage, ovarian cyst, appendicitis, uterine abruption, torsion, sbo EKG interpreted by me (3pts min.)? no X-rays interpreted by me (1pt min.)? no CT interpreted by me (1pt min.)? no U/S interpreted by me (1pt. min.)? yes What testing was considered but not performed? (CT, X-rays, U/S, labs)? Why? none What meds were considered but not given? Why? none Did you discuss the management of the patient with other professionals? no Did you reconcile home meds? no Was smoking cessation discussed for >3mins.? no Was critical care preformed (if so, how long)? no Were there social determinants of health that impacted care today? How? (Homelessness, low income, unemployed, alcoholism, drug addiction, t ransportation, low edu. Level, literacy, decrease access to med. care, intermediate, rehab)? none Was there de-escalation of care discussed even if they declined? (Discuss DNR or withdrawal of care, Hospice)? no What co-morbidities impacted this encounter? (DM, HTN, Smoking, COPD, CAD, Cancer, CVA, Hep., AIDS, mental health diagnosis, sleep apnea, morbid obesity)? none Was patient admitted / discharged? Upon arrival patient was placed into room 7. Thorough history and physical exam was performed. We did discuss pain control. Patient was requesting Tylenol 3. Informed of the risks of providing medication that has opiate properties in . Patient does accept these risks requesting medication at this time. I is established laboratory studies are conducted. Ultrasound of the right lower quadrant and or performed. Ultrasound demonstrates intrauterine with heart rate of 167. No complicating process. Appendix is visualized and normal. Results are discussed with the patient. She'll be discharged home at this time. Instructed to take Tylenol as needed for pain control as her pain is now improved. Call and make an appointment with her ADMITTING COUNSELOR on Sunday. If she has any new or worsening symptoms to include uncontrolled pain, fevers, vaginal bleeding she needs to return to the emergency room. Patient agreeable with plan she was discharged home in stable condition Undiagnosed new problem with uncertain prognosis? yes Drug Therapy requiring intensive monitoring for toxicity (Heparin, Nitro, Insulin, Cardizem)? no Were any procedures done? no Diagnosis/symptom? acute pelvic pain, second trimester Acute, or Chronic, or Acute on Chronic? acute Uncomplicated (without systemic symptoms) or Complicated (systemic symptoms)? uncomplicated Side effects of treatment? patient warned that tylenol #3 causing sedation in fetus and is not recommended as best treatment options for baby Exacerbation, Progression, or Severe Exacerbation] no Poses a threat to life or bodily function? no - Lab Data Result diagrams: 04/01/22 18:29 04/01/22 18:29 Lab Results 04/01/22 04/01/22 04/01/22 Range/Units 18:29 18:29 18:29 WBC 8.8 (3.8-10.6) k/uL RBC 4.19 (3.80-5.40) m/uL Hgb 12.6 (11.4-16.0) gm/dL Hct 36.8 (34.0-46.0) % MCV 87.8 (80.0-100.0) fL MCH 30.2 (25.0-35.0) pg MCHC 34.4 (31.0-37.0) g/dL RDW 13.0 (11.5-15.5) % Plt Count 218 (150-450) k/uL MPV 9.2 Neutrophils % 67 % Lymphocytes % 22 % Monocytes % 5 % Eosinophils % 3 % Basophils % 1 % Neutrophils # 5.9 (1.3-7.7) k/uL Lymphocytes # 1.9 (1.0-4.8) k/uL Monocytes # 0.4 (0-1.0) k/uL Eosinophils # 0.3 (0-0.7) k/uL Basophils # 0.1 (0-0.2) k/uL Sodium 137 (137-145) mmol/L Potassium 4.1 (3.5-5.1) mmol/L Chloride 105 (98-107) mmol/L Carbon Dioxide 26 (22-30) mmol/L Anion Gap 6 mmol/L BUN 12 (7-17) mg/dL Creatinine 0.54 (0.52-1.04) mg/dL Est GFR (CKD-EPI)AfAm >90 (>60 ml/min/1.73 sqM) Est GFR (CKD-EPI)NonAf >90 (>60 ml/min/1.73 sqM) Glucose 85 (74-99) mg/dL Calcium 8.9 (8.4-10.2) mg/dL Total Bilirubin 0.3 (0.2-1.3) mg/dL AST 28 (14-36) U/L ALT 33 (4-34) U/L Alkaline Phosphatase 57 (38-126) U/L Total Protein 6.6 (6.3-8.2) g/dL Albumin 3.9 (3.5-5.0) g/dL Lipase 50 (23-300) U/L Urine Color Light Yellow Urine Appearance Turbid H (Clear) Urine pH 8.0 (5.0-8.0) Ur Specific [place] 1.019 (1.001-1.035) Urine Protein Negative (Negative) Urine Glucose (UA) Negative (Negative) Urine Ketones Negative (Negative) Urine Blood Negative (Negative) Urine Nitrite Negative (Negative) Urine Bilirubin Negative (Negative) Urine Urobilinogen <2.0 (<2.0) mg/dL Ur Leukocyte Esterase Large H (Negative) Urine RBC 3 (0-5) /hpf Urine WBC 4 (0-5) /hpf Ur Squamous Epith Cells 15 H (0-4) /hpf Amorphous Sediment Rare H (None) /hpf Urine Mucus Rare H (None) /hpf Disposition Clinical Impression: Abdominal pain, Second trimester Disposition: HOME SELF-CARE Condition: Stable Instructions (If sedation given, give patient instructions): Abdominal Pain in (ED) Additional Instructions: Take Tylenol for pain. Monitor your symptoms. Call your OB on Sunday. If your symptoms worsen, please return to the emergency department Is patient prescribed a controlled substance at d/c from ED?: No Referrals: Nasra Vidal DO [Doctor of Osteopathic Medicine] - 1-2 days Time of Disposition: 20:31
== END 2022-04-01 20:40 | disposition home or self-care (01) ==
LOC: EC 17:49
DX: O26.891 Other specified pregnancy related conditions, first trimester (principal); O99.341 Other mental disorders complicating pregnancy, first trimester; O99.331 Smoking (tobacco) complicating pregnancy, first trimester; R10.9 Unspecified abdominal pain; F41.9 Anxiety disorder, unspecified; F31.9 Bipolar disorder, unspecified; F17.290 Nicotine dependence, other tobacco product, uncomplicated; F12.90 Cannabis use, unspecified, uncomplicated; Z88.2 Allergy status to sulfonamides; Z88.1 Allergy status to other antibiotic agents; Z88.8 Allergy status to other drugs, medicaments and biological substances; Z79.899 Other long term (current) drug therapy; Z3A.13 13 weeks gestation of pregnancy
CPT/HCPCS: 36415; 76705; 76801; 80053; 81001; 83690; 85025; 99284

== ENCOUNTER 2022-05-27 16:51 | Outpatient (CLI) | payer OTHER ==
[2022-05-27 21:33] VITALS: BP 113/55; PULSE 77; RESP 14; TEMP 98.5
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
== END 2022-05-27 21:23 ==
LOC: FBPOP 16:51
PROVIDERS: ATTEND Obstetrics & Gynecology
DX: O9A.212 Injury, poisoning and certain other consequences of external causes complicating pregnancy, second trimester (principal); F17.210 Nicotine dependence, cigarettes, uncomplicated; G89.11 Acute pain due to trauma; O99.332 Smoking (tobacco) complicating pregnancy, second trimester; R10.9 Unspecified abdominal pain; W18.39XA Other fall on same level, initial encounter; Y99.0 Civilian activity done for income or pay; Z3A.21 21 weeks gestation of pregnancy; Z88.2 Allergy status to sulfonamides; Z88.8 Allergy status to other drugs, medicaments and biological substances; Z88.1 Allergy status to other antibiotic agents
CPT/HCPCS: 99213

== ENCOUNTER 2022-07-26 21:49 | Outpatient (CLI) | payer OTHER ==
[2022-07-26 22:57] LABS: Amorphous Sediment,Urine Rare /hpf; Appearance,Urine Cloudy (Clear); Bilirubin,Urine Negative (Negative); Blood,Urine Negative (Negative); Color,Urine Yellow; Glucose,Urine (UA) Negative (Negative); Ketones,Urine Negative (Negative); Leukocyte Esterase,Urine Small (Negative); Mucus,Urine Rare /hpf; Nitrite,Urine Negative (Negative); Protein,Urine Negative (Negative); RBC,Urine 1 /hpf (0-5); Specific Gravity,Urine 1.011 (1.001-1.035); Squamous Epithelial Cell,Urine 3 /hpf (0-4); Urobilinogen,Urine <2.0 mg/dL (<2.0); WBC,Urine 5 /hpf (0-5)
[2022-07-27 00:30] VITALS: BP 127/76; PULSE 90; RESP 16; TEMP 97.1
--- NOTE | 2022-07-27 06:52 | P.MSEPDOC ---
Presenting Problems - Arrival Data Date of Arrival on Unit: 07/26/22 Time of Arrival on Unit: 21:49 Mode of Transport: Ambulatory - Complaint OB-Reason for Admission/Chief Complaint: Pain, NST Comment: Patient presents to ER with right lower back pain, shortness of breath and. weakness with exertion. , [facility] 10/05/2022, [place] 29.6. Feeling movement, no. leakage of fluid or bleeding. History includes GDM, Breech . Social history. includes vapeing. Medical History - Information : 4 Para: 1 Term: 1 : 0 Abortions: Spontaneous or Elective: 2 Number of Living Children: 1 - Gestational Age Gestational Age by JOSIE (wks/days): 30 Weeks and 0 Days - History Complications: GDM, Breech, Smoker Sexually Transmitted Diseases: Chlamydia Review of Systems - Review of Systems Constitutional: No problems Breast: No problems ENT: No problems Cardiovascular: No problems Respiratory: No problems Gastrointestinal: No problems Genitourinary: No problems Musculoskeletal: Muscle weakness Neurological: No problems Skin: No problems Comment: Patient c/o right lower back pain, shortness of breath and weakness throughout the day. Vital Signs - Temperature Temperature: 97.1 F Temperature Source: Temporal Artery Scan - Pulse Pulse Oximetery Pulse Rate: 90 Pulse Assessment Method: Pulse Oximetry - Respirations Respiratory Rate: 16 Oxygen Delivery Method: Room Air O2 Sat by Pulse Oximetry: 98 - Blood Pressure Left Arm Blood Pressure: 127/76 Blood Pressure Mean: 93 Blood Pressure Source: Automatic Cuff Medical Screen Scoring - Uterine Contractions Resting: Soft to palpation - Assessment - Baby A Baseline FHR: 135 Heart Rate - NICHD Category: Category I (Normal) NST: Reactive Physician Notification - Physician Notified Physician Notified Date: 07/27/22 Physician Notified Time: 22:51 Physician: Tj Whitney New Order Received: Yes - Notification Comment Comment: Called and spoke with Dr. Whitney to report on triage patient. Patient sees Ben Sampson, [facility] 10/05/2022, [place] 29.6. Presents to triage with right lower back pain,. shortness of breath and weakness throughout the day. No leakage of fluid or bleeding,. baby is reactive on NST and patient is feeling baby move. Orders for UA, discharge if no. significant results. Maternal Triage Index - Maternal Triage Index Presenting for scheduled procedure w/no complaint: No - Stat/Priority 1 Stat Priority 1: No - Urgent/Priority 2 Urgent Priority 2: No - Prompt/Priority 3 Prompt Priority 3: No - Non-Urgent/Priority 4 Non-Urgent Priority 4: Yes Criteria Met for Priority 4: Common discomforts of , right lower back pain. Disposition - Disposition OB Disposition: Discharge to home Discharge Date: 07/27/22 Discharge Time: 23:18 I agree with the RN Medical Screening Exam: Yes Case reviewed; plan agreed upon as documented in EMR&OBIX.: Yes Diagnosis: RELATED CONDITIONS, UNSPECIFIED, THIRD TRIMESTER
== END 2022-07-26 23:20 | disposition home or self-care (01) ==
LOC: FBPOP 21:49
PROVIDERS: ATTEND Obstetrics & Gynecology
DX: O26.893 Other specified pregnancy related conditions, third trimester (principal); R06.02 Shortness of breath; Z3A.30 30 weeks gestation of pregnancy; O24.419 Gestational diabetes mellitus in pregnancy, unspecified control; M54.50 Low back pain, unspecified; O32.1XX0 Maternal care for breech presentation, not applicable or unspecified; O99.333 Smoking (tobacco) complicating pregnancy, third trimester; F17.290 Nicotine dependence, other tobacco product, uncomplicated; A74.9 Chlamydial infection, unspecified; Z88.1 Allergy status to other antibiotic agents; Z88.2 Allergy status to sulfonamides; Z88.8 Allergy status to other drugs, medicaments and biological substances
CPT/HCPCS: 59025; 81001; 99213

== ENCOUNTER 2022-08-02 01:49 | Outpatient (CLI) | payer OTHER ==
[2022-08-02 02:04] LABS: Glucose,Whole Blood 112 mg/dL (70-110)
[2022-08-02 04:23] VITALS: BP 120/69; PULSE 89; RESP 16; TEMP 97.3
--- NOTE | 2022-09-10 11:27 | P.MSEPDOC ---
Presenting Problems - Arrival Data Date of Arrival on Unit: 08/02/22 Time of Arrival on Unit: 01:49 Mode of Transport: Ambulatory - Complaint OB-Reason for Admission/Chief Complaint: Possible Onset of Labor Comment: patient states she began harsha at 0100 7 minutes apart, possible rupture of membranes with clear fluid. Medical History - Information : 4 Para: 1 Term: 1 : 0 Abortions: Spontaneous or Elective: 2 Number of Living Children: 1 - Gestational Age Gestational Age by JOSIE (wks/days): 30 Weeks and 6 Days - History Complications: GDM Review of Systems - Review of Systems Constitutional: No problems Breast: No problems ENT: No problems Cardiovascular: No problems Respiratory: No problems Gastrointestinal: No problems Genitourinary: No problems Musculoskeletal: No problems Neurological: No problems Skin: No problems Vital Signs - Temperature Temperature: 97.3 F Temperature Source: Temporal Artery Scan - Pulse Right Brachial Pulse Rate: 89 Pulse Assessment Method: Automatic Cuff - Respirations Respiratory Rate: 16 Oxygen Delivery Method: Room Air O2 Sat by Pulse Oximetry: 100 - Blood Pressure Right Arm Blood Pressure: 120/69 Blood Pressure Mean: 86 Blood Pressure Source: Automatic Cuff Medical Screen Scoring - Cervical Exam Membranes: Intact - Assessment - Baby A Baseline FHR: 120 Heart Rate - NICHD Category: Category I (Normal) NST: Reactive Physician Notification - Physician Notified Physician Notified Date: 08/02/22 Physician Notified Time: 02:28 Physician: Nasra Vidal New Order Received: Yes - Notification Comment Comment: Dr. Vidal called with report. Category 1 heart tones. No contractions per toco palpation or patient. Amnisure negative. Cervical exam closed thick and high. vitals within normal range. Patient to be discharged home and keep next scheduled appt. Maternal Triage Index - Maternal Triage Index Presenting for scheduled procedure w/no complaint: No - Stat/Priority 1 Stat Priority 1: No - Urgent/Priority 2 Urgent Priority 2: Yes Provider Notified: Nasra Vidal Provider Notified Time: 01:57 Criteria Met for Priority 2: rule our ROM and contractions patient is 30 6/7 Disposition - Disposition OB Disposition: Discharge to home Discharge Date: 08/02/22 Discharge Time: 02:40 I agree with the RN Medical Screening Exam: Yes Case reviewed; plan agreed upon as documented in EMR&OBIX.: Yes Diagnosis: FALSE LABOR BEFORE 37 COMPLETED WEEKS OF GEST, THIRD TRI
== END 2022-08-02 02:40 ==
LOC: FBPOP 01:49
PROVIDERS: ATTEND Obstetrics & Gynecology
DX: O47.03 False labor before 37 completed weeks of gestation, third trimester (principal); O99.333 Smoking (tobacco) complicating pregnancy, third trimester; O24.419 Gestational diabetes mellitus in pregnancy, unspecified control; F17.200 Nicotine dependence, unspecified, uncomplicated; Z3A.30 30 weeks gestation of pregnancy; Z88.2 Allergy status to sulfonamides; Z88.1 Allergy status to other antibiotic agents; Z88.8 Allergy status to other drugs, medicaments and biological substances
CPT/HCPCS: 59025; 84112; G0463; 99213

== ENCOUNTER 2022-08-09 11:11 | Outpatient (CLI) | payer OTHER ==
[2022-08-09 11:31] LABS: Glucose,Whole Blood 91 mg/dL (70-110)
[2022-08-09 12:01] LABS: Appearance,Urine Cloudy (Clear); Bilirubin,Urine Negative (Negative); Blood,Urine Negative (Negative); Color,Urine Yellow; Glucose,Urine (UA) Negative (Negative); Ketones,Urine Negative (Negative); Leukocyte Esterase,Urine Large (Negative); Mucus,Urine Moderate /hpf; Nitrite,Urine Negative (Negative); PH, Urine 6.5 (5.0-8.0); Protein,Urine 1+ (Negative); Specific Gravity,Urine 1.026 (1.001-1.035); Squamous Epithelial Cell,Urine 40 /hpf (0-4); WBC,Urine 53 /hpf (0-5)
[2022-08-09 12:37] VITALS: BP 119/69; PULSE 89; RESP 18; TEMP 97.3
--- NOTE | 2022-08-11 06:33 | P.MSEPDOC ---
Presenting Problems - Arrival Data Date of Arrival on Unit: 08/09/22 Time of Arrival on Unit: 11:11 Mode of Transport: Ambulatory - Complaint OB-Reason for Admission/Chief Complaint: Pain Comment: cramping that started at 0930 this morning. intercourse last night at 6pm. pt rates 4/10 cramps Medical History - Information : 4 Para: 1 Term: 1 : 0 Abortions: Spontaneous or Elective: 2 Number of Living Children: 1 - Gestational Age Gestational Age by JOSIE (wks/days): 31 Weeks and 6 Days - History Complications: GDM Review of Systems - Review of Systems Constitutional: No problems Breast: No problems ENT: No problems Cardiovascular: No problems Respiratory: No problems Gastrointestinal: No problems Genitourinary: No problems Musculoskeletal: No problems Neurological: No problems Skin: No problems Vital Signs - Temperature Temperature: 97.3 F Temperature Source: Temporal Artery Scan - Pulse Right Pulse Oximetery Pulse Rate: 89 Pulse Assessment Method: Pulse Oximetry - Respirations Respiratory Rate: 18 Oxygen Delivery Method: Room Air O2 Sat by Pulse Oximetry: 98 - Blood Pressure Right Arm Blood Pressure: 119/69 Blood Pressure Mean: 85 Blood Pressure Source: Automatic Cuff Medical Screen Scoring - Uterine Contractions Frequency From (mins): 9 Frequency To (mins): 12 Duration From (seconds): 30 Duration To (seconds): 40 Intensity: Mild Resting: Soft to palpation - Assessment - Baby A Baseline FHR: 130 Heart Rate - NICHD Category: Category I (Normal) NST: Reactive Physician Notification - Physician Notified Physician Notified Date: 08/09/22 Physician Notified Time: 12:05 Physician: Tj Whitney New Order Received: Yes (culture urine, check cervix.) Maternal Triage Index - Maternal Triage Index Presenting for scheduled procedure w/no complaint: No - Stat/Priority 1 Stat Priority 1: No - Urgent/Priority 2 Urgent Priority 2: Yes Provider Notified: Tj Whitney Provider Notified Time: 12:05 Criteria Met for Priority 2: contractions, 31 6/7 weeks gestation Disposition - Disposition OB Disposition: Discharge to home Discharge Date: 08/09/22 Discharge Time: 12:20 I agree with the RN Medical Screening Exam: Yes Case reviewed; plan agreed upon as documented in EMR&OBIX.: Yes Diagnosis: FALSE LABOR BEFORE 37 COMPLETED WEEKS OF GEST, THIRD TRI
== END 2022-08-09 12:20 | disposition home or self-care (01) ==
LOC: FBPOP 11:11
PROVIDERS: ATTEND Obstetrics & Gynecology
DX: O47.03 False labor before 37 completed weeks of gestation, third trimester (principal); Z3A.31 31 weeks gestation of pregnancy; O24.419 Gestational diabetes mellitus in pregnancy, unspecified control; O99.333 Smoking (tobacco) complicating pregnancy, third trimester; Z88.8 Allergy status to other drugs, medicaments and biological substances; Z88.2 Allergy status to sulfonamides; Z88.1 Allergy status to other antibiotic agents; F17.200 Nicotine dependence, unspecified, uncomplicated
CPT/HCPCS: 59025; 81001; 87086; G0463; 99213

== ENCOUNTER 2022-08-13 23:12 | Outpatient (CLI) | payer OTHER ==
[2022-08-13 23:27] LABS: Glucose,Whole Blood 118 mg/dL (70-110)
[2022-08-14 00:28] VITALS: BP 128/73; PULSE 76; RESP 16; TEMP 97.8
--- NOTE | 2022-08-24 21:29 | P.MSEPDOC ---
Presenting Problems - Arrival Data Date of Arrival on Unit: 08/13/22 Time of Arrival on Unit: 23:12 Mode of Transport: Wheelchair - Complaint OB-Reason for Admission/Chief Complaint: Possible Onset of Labor Comment: Pt states she has been cramping since 2229 Medical History - Information : 4 Para: 1 Term: 1 : 0 Abortions: Spontaneous or Elective: 2 Number of Living Children: 1 - Gestational Age Gestational Age by JOSIE (wks/days): 32 Weeks and 4 Days - History Complications: GDM Review of Systems - Review of Systems Constitutional: No problems Breast: No problems ENT: No problems Cardiovascular: No problems Respiratory: No problems Gastrointestinal: No problems Genitourinary: No problems Musculoskeletal: No problems Neurological: No problems Skin: No problems Comment: Pt has restless leg syndrome, and is sunburned Vital Signs - Temperature Temperature: 97.8 F Temperature Source: Oral - Pulse Right Sitting Pulse Rate: 76 Pulse Assessment Method: Automatic Cuff - Respirations Respiratory Rate: 16 Oxygen Delivery Method: Room Air O2 Sat by Pulse Oximetry: 100 - Blood Pressure Right Arm Sitting Blood Pressure: 128/73 Blood Pressure Mean: 91 Blood Pressure Source: Automatic Cuff Medical Screen Scoring - Cervical Exam Dilation (cm): 0 Membranes: Intact - Assessment - Baby A Baseline FHR: 145 Heart Rate - NICHD Category: Category I (Normal) NST: Reactive Physician Notification - Physician Notified Physician Notified Date: 08/14/22 Physician Notified Time: 00:00 Physician: Cristiane Vazquez Order Received: Yes (Discharge home) - Notification Comment Comment: Pt is to rest and increase fluid intake. Pt is to keep sced apt with MFM this Sun, and [place] next week. Maternal Triage Index - Maternal Triage Index Presenting for scheduled procedure w/no complaint: No - Stat/Priority 1 Stat Priority 1: No - Urgent/Priority 2 Urgent Priority 2: No - Prompt/Priority 3 Prompt Priority 3: No - Non-Urgent/Priority 4 Non-Urgent Priority 4: Yes Criteria Met for Priority 4: Pt c/o of contractions. Pt has not felt any contractions since being here. Cervix is closed. Disposition - Disposition OB Disposition: Discharge to home, Written follow up instructions reviewed Discharge Date: 08/14/22 Discharge Time: 00:05 I agree with the RN Medical Screening Exam: Yes Case reviewed; plan agreed upon as documented in EMR&OBIX.: Yes Diagnosis: FALSE LABOR BEFORE 37 COMPLETED WEEKS OF GEST, THIRD TRI
== END 2022-08-14 00:05 | disposition home or self-care (01) ==
LOC: FBPOP 23:12
PROVIDERS: ATTEND Obstetrics & Gynecology
DX: O99.333 Smoking (tobacco) complicating pregnancy, third trimester (principal); O47.03 False labor before 37 completed weeks of gestation, third trimester; F17.200 Nicotine dependence, unspecified, uncomplicated; Z88.2 Allergy status to sulfonamides; Z88.1 Allergy status to other antibiotic agents; Z88.8 Allergy status to other drugs, medicaments and biological substances; Z3A.32 32 weeks gestation of pregnancy
CPT/HCPCS: 59025; G0463; 99213

== ENCOUNTER 2022-08-29 14:27 | Outpatient (CLI) | payer OTHER ==
[2022-08-29 15:11] LABS: Glucose,Whole Blood 118 mg/dL (70-110)
[2022-08-29 15:35] VITALS: BP 133/80; PULSE 98; RESP 16; TEMP 96.9
--- NOTE | 2022-09-10 12:01 | P.MSEPDOC ---
Presenting Problems - Arrival Data Date of Arrival on Unit: 08/29/22 Time of Arrival on Unit: 14:27 Mode of Transport: Ambulatory - Complaint OB-Reason for Admission/Chief Complaint: Observation/Evaluation Comment: Pt reports to triage c/o nausea without vomitting, diarrhea x 1 today, hunger without an appetite, headache, restlessness, cold sweats without a fever and cramping. Pt reports BS 152 @ 1130. Medical History - Information : 4 Para: 1 Term: 1 Abortions: Spontaneous or Elective: 2 Number of Living Children: 1 - Gestational Age Gestational Age by JOSIE (wks/days): 34 Weeks and 5 Days - History Complications: GDM Comment: GDM, Cholestasis Review of Systems - Review of Systems Constitutional: No problems Breast: No problems ENT: No problems Cardiovascular: No problems Respiratory: No problems Gastrointestinal: Diarrhea Genitourinary: No problems Musculoskeletal: No problems Neurological: No problems Skin: No problems Vital Signs - Temperature Temperature: 96.9 F Temperature Source: Temporal Artery Scan - Pulse Right Sitting Brachial Pulse Rate: 98 Pulse Assessment Method: Automatic Cuff - Respirations Respiratory Rate: 16 Oxygen Delivery Method: Room Air O2 Sat by Pulse Oximetry: 96 - Blood Pressure Right Arm Sitting Blood Pressure: 133/80 Blood Pressure Mean: 97 Blood Pressure Source: Automatic Cuff Medical Screen Scoring - Cervical Exam Dilation (cm): 1 Effacement (%): 50 Station: -2 Membranes: Intact - Uterine Contractions Frequency From (mins): 1 Frequency To (mins): 3 Duration From (seconds): 20 Duration To (seconds): 40 Intensity: Mild Resting: Soft to palpation - Assessment - Baby A Baseline FHR: 140 Heart Rate - NICHD Category: Category I (Normal) NST: Reactive Physician Notification - Physician Notified Physician Notified Date: 08/29/22 Physician Notified Time: 15:20 Physician: Nasra Vidal New Order Received: Yes - Notification Comment Comment: Spk c\Dr. Vidal, [facility] of pts arrival to triage, , 34 5/7, c/o nausea without vomitting, diarrhea x 1, headache, restlessness, cold sweats- afebrile, and cramping. Pt with GDM, accuchek 118, +FM, SVE 1/50/-2, reactive, Cat 1 NST. Pt reports feeling better since arrival to triage. Orders rec'd to d/c home, follow up as scheduled. Maternal Triage Index - Maternal Triage Index Presenting for scheduled procedure w/no complaint: No - Stat/Priority 1 Stat Priority 1: No - Urgent/Priority 2 Urgent Priority 2: No - Prompt/Priority 3 Prompt Priority 3: No - Non-Urgent/Priority 4 Non-Urgent Priority 4: Yes Criteria Met for Priority 4: Discomforts of Disposition - Disposition OB Disposition: Written follow up instructions reviewed Discharge Date: 08/29/22 Discharge Time: 15:25 I agree with the RN Medical Screening Exam: Yes Case reviewed; plan agreed upon as documented in EMR&OBIX.: Yes Diagnosis: VOMITING OF , UNSPECIFIED
== END 2022-08-29 15:30 | disposition home or self-care (01) ==
LOC: FBPOP 14:27
PROVIDERS: ATTEND Obstetrics & Gynecology
DX: O21.8 Other vomiting complicating pregnancy (principal); O24.419 Gestational diabetes mellitus in pregnancy, unspecified control; O99.333 Smoking (tobacco) complicating pregnancy, third trimester; F17.200 Nicotine dependence, unspecified, uncomplicated; Z3A.34 34 weeks gestation of pregnancy; Z88.2 Allergy status to sulfonamides; Z88.1 Allergy status to other antibiotic agents; Z88.8 Allergy status to other drugs, medicaments and biological substances
CPT/HCPCS: 59025; G0463; 99213

== ENCOUNTER 2022-09-07 05:21 | Outpatient (CLI) | payer OTHER ==
[2022-09-07 06:55] VITALS: BP 130/77; PULSE 99; RESP 18; TEMP 97.7
--- NOTE | 2022-09-08 06:33 | P.MSEPDOC ---
Presenting Problems - Arrival Data Date of Arrival on Unit: 09/07/22 Time of Arrival on Unit: 05:20 Mode of Transport: Ambulatory - Complaint OB-Reason for Admission/Chief Complaint: Decreased Movement Comment: no fm since 0000 Medical History - Information : 4 Para: 1 Term: 1 : 0 Abortions: Spontaneous or Elective: 2 Number of Living Children: 1 - Gestational Age Gestational Age by JOSIE (wks/days): 36 Weeks and 0 Days - History Complications: GDM Comment: diet controlled. cholestasis Review of Systems - Review of Systems Constitutional: No problems Breast: No problems ENT: No problems Cardiovascular: No problems Respiratory: No problems Gastrointestinal: No problems Genitourinary: No problems Musculoskeletal: No problems Neurological: No problems Skin: No problems Vital Signs - Temperature Temperature: 97.7 F Temperature Source: Temporal Artery Scan - Pulse Right Pulse Rate: 99 Pulse Assessment Method: Pulse Oximetry - Respirations Respiratory Rate: 18 O2 Sat by Pulse Oximetry: 99 - Blood Pressure Right Arm Blood Pressure: 130/77 Blood Pressure Mean: 94 Blood Pressure Source: Automatic Cuff Medical Screen Scoring - Uterine Contractions Intensity: Absent - Assessment - Baby A Baseline FHR: 135 Heart Rate - NICHD Category: Category I (Normal) NST: Reactive Physician Notification - Physician Notified Physician Notified Date: 09/07/22 Physician Notified Time: 06:17 Physician: Tj Whitney - Notification Comment Comment: reported on pts c/o decreased fm, maternal hx, u/s in office today, reactive nst in triage Maternal Triage Index - Maternal Triage Index Presenting for scheduled procedure w/no complaint: No - Stat/Priority 1 Stat Priority 1: No - Urgent/Priority 2 Urgent Priority 2: No - Prompt/Priority 3 Prompt Priority 3: No - Non-Urgent/Priority 4 Non-Urgent Priority 4: Yes Criteria Met for Priority 4: 36/0. decreased fm Disposition - Disposition OB Disposition: Discharge to home Discharge Date: 09/07/22 Discharge Time: 06:40 I agree with the RN Medical Screening Exam: Yes Case reviewed; plan agreed upon as documented in EMR&OBIX.: Yes Diagnosis: DECREASED MOVEMENTS, THIRD TRIMESTER, FETUS 1
== END 2022-09-07 06:40 | disposition home or self-care (01) ==
LOC: FBPOP 05:21
PROVIDERS: ATTEND Obstetrics & Gynecology
DX: O36.8131 Decreased fetal movements, third trimester, fetus 1 (principal); O99.333 Smoking (tobacco) complicating pregnancy, third trimester; O24.419 Gestational diabetes mellitus in pregnancy, unspecified control; Z88.8 Allergy status to other drugs, medicaments and biological substances; Z88.2 Allergy status to sulfonamides; Z88.1 Allergy status to other antibiotic agents; F17.200 Nicotine dependence, unspecified, uncomplicated; Z3A.36 36 weeks gestation of pregnancy
CPT/HCPCS: 59025; G0463; 99213

== ENCOUNTER 2022-09-14 05:50 | Inpatient (IN) | payer OTHER ==
[2022-09-14] MEDS: LACTATED RINGERS 1,000 ML IV SCH ×2 (05:59→10:00)
[2022-09-14] MEDS ORDERED: miSOPROStoL 200 MCG TAB PO PRN (06:00)
[2022-09-14] MEDS ORDERED: TRANEXAMIC 1,000 MG/100ML-NACL 1,000 MG in EMPTY BAG 1 BAG IV PRN (06:00)
[2022-09-14] MEDS ORDERED: LIDOCAINE 0.5% (PF) 5 MG/ML (50 ML SDV) SQ PRN (06:00)
[2022-09-14] MEDS ORDERED: OXYTOCIN 10 UNIT/ML 1 ML VIAL IM PRN (06:00)
[2022-09-14] MEDS ORDERED: OXYTOCIN 30 UNITS/500 ML NS 30 UNIT in SALINE 1 500ML.BAG IV SCH ×2 (06:00→16:00)
[2022-09-14] MEDS ORDERED: CARBOPROST TROMETHAMINE 250 MCG/ML 1 ML AMP IM PRN (06:00)
[2022-09-14] MEDS ORDERED: TERBUTALINE 1 MG/ML VIAL SQ PRN (06:00)
[2022-09-14] MEDS ORDERED: METHYLERGONOVINE 0.2 MG/ML 1 ML AMP IM PRN (06:00)
[2022-09-14 06:14] LABS: Glucose,Whole Blood 100 mg/dL (70-110)
[2022-09-14 06:23] LABS: Basophils # (A) 0.1 k/uL (0-0.2); Basophils % (A) 1 %; Eosinophils # (A) 0.3 k/uL (0-0.7); Eosinophils % (A) 2 %; HCT 34.7 % (34.0-46.0); Lymphocytes % (A) 23 %; MCH 27.5 pg (25.0-35.0); MCHC 31.7 g/dL (31.0-37.0); MCV 86.8 fL (80.0-100.0); Mean Platelet Volume 10.5; Monocytes # (A) 0.7 k/uL (0-1.0); Monocytes % (A) 6 %; Neutrophils # (A) 8.5 k/uL (1.3-7.7); Neutrophils % (A) 65 %; Platelet Count 249 k/uL (150-450); RBC 3.99 m/uL (3.80-5.40); RDW 13.7 % (11.5-15.5)
[2022-09-14 06:29] LABS: Amphetamine Screen,Urine Not Detected (NotDetected); Barbiturate Screen,Urine Not Detected (NotDetected); Benzodiazepines Screen,Urine Not Detected (NotDetected); Cocaine Screen,Urine Not Detected (NotDetected); Methadone Screen, Urine Not Detected (NotDetected); Opiate Screen,Urine Not Detected (NotDetected); Oxycodone Screen, Urine Not Detected (NotDetected); Phencyclidine Screen,Urine Not Detected (NotDetected); Tricyclic Antidepressant,Urine Not Detected (NotDetected); Urn Cannabinoid Scrn Detected (NotDetected)
[2022-09-14] MEDS ORDERED: NALBUPHINE 10 MG/ML (10 ML MDV) IV PRN (08:09)
[2022-09-14] MEDS ORDERED: SODIUM CHLORIDE 0.9% 100 ML BAG ONE (09:45)
[2022-09-14] MEDS ORDERED: ROPIVACAINE 5 MG/ML 20 ML AMPULE ONE (09:45)
[2022-09-14] MEDS ORDERED: fentaNYL (PF) 50 MCG/ML 5 ML AMP ONE (09:45)
--- NOTE | 2022-09-14 12:46 | P.HPOB ---
History of Present Illness H&P Date: 09/14/22 Chief Complaint: Induction of labor 32 year old presents at 37 weeks for induction of labor due to cholestasis of . Her cervix is 1-2/60/-2. She is harsha irregularly. heart tones 145 with moderate variability and reactive. Review of Systems All systems: negative Constitutional: Denies chills, Denies fever Eyes: denies blurred vision, denies pain Ears, nose, mouth and throat: Denies headache, Denies sore throat Cardiovascular: Denies chest pain, Denies shortness of breath Respiratory: Denies cough Gastrointestinal: Denies abdominal pain, Denies diarrhea, Denies nausea, Denies vomiting Genitourinary: Denies dysuria, Denies hematuria Musculoskeletal: Denies myalgias Integumentary: Denies pruritus, Denies rash Neurological: Denies numbness, Denies weakness Psychiatric: Denies anxiety, Denies depression Endocrine: Denies fatigue, Denies weight change Past Medical History Past Medical History: Asthma Additional Past Medical History / Comment(s): hypoglycemia, elevated liver enzymes History of Any Multi-Drug Resistant Organisms: None Reported Past Surgical History: Tonsillectomy Additional Past Surgical History / Comment(s): oral surgery Past Anesthesia/Blood Transfusion Reactions: No Reported Reaction Past Psychological History: ADD/ADHD, Anxiety, Bipolar, Depression Smoking Status: Vaper Past Alcohol Use History: None Reported Past Drug Use History: None Reported - Past Family History Mother Family Medical History: Asthma, Thyroid Disorder Medications and Allergies Home Medications Medication Instructions Recorded Confirmed Type Albuterol Sulfate [Ventolin HFA] 1 - 2 puff INHALATION RT-Q6H PRN 12/21/18 09/14/22 History Famotidine [Pepcid] 20 mg PO BID #28 tablet 04/29/22 09/14/22 Rx Dextroamphetamine/Amphetamine 20 mg PO BID 05/27/22 09/14/22 History [Adderall] Vit No.179/Iron/Folic 1 each PO DAILY 05/27/22 09/14/22 History [ Tablet] hydrOXYzine HCL 10 mg PO BID 09/07/22 09/14/22 History ursodioL [Ursodiol] 300 mg PO TID 09/07/22 09/14/22 History Allergies Allergy/AdvReac Type Severity Reaction Status Date / Time methylphenidate HCl Allergy Mild Unknown Verified 09/14/22 05:56 [From Metadate CD] trimethoprim [From Bactrim] Allergy Mild Rash/Hives Verified 09/14/22 05:56 azithromycin Allergy Rash/Hives Verified 09/14/22 05:56 sulfamethoxazole Allergy Rash/Hives Verified 09/14/22 05:56 [From Bactrim] cephalexin [From Keflex] AdvReac Mild Nausea & Verified 09/14/22 05:56 Vomiting Exam Osteopathic Statement: *. No significant issues noted on an osteopathic str uctural exam other than those noted in the History and Physical/Consult. Vital Signs Temp Pulse Resp BP Pulse Ox 09/14/22 06:19 97.5 F L 94 18 123/79 98 Intake and Output 09/13/22 09/14/22 09/14/22 22:59 06:59 14:59 Other: # Voids 1 Weight 66.678 kg Heart: Regular rate and rhythm Lungs: Clear to auscultation bilaterally Abdomen: Soft, nontender Extremities: Negative Homans sign Results Result Diagrams: 09/14/22 05:50 Abnormal Lab Results - Last 24 Hours (Table) 09/14/22 09/14/22 Range/Units 05:50 05:50 WBC 13.0 H (3.8-10.6) k/uL Hgb 11.0 L (11.4-16.0) gm/dL Neutrophils # 8.5 H (1.3-7.7) k/uL U Marijuana (THC) Screen Detected H (NotDetected) Assessment and Plan (1) Cholestasis of Current Visit: Yes Status: Acute Code(s): O26.619 - LIVER AND BILIARY TRACT DISORD IN , UNSP TRIMESTER; K83.1 - OBSTRUCTION OF BILE DUCT SNOMED Code(s): 662519014 (2) Encounter for induction of labor Current Visit: Yes Status: Acute Code(s): Z34.90 - ENCNTR FOR SUPRVSN OF NORMAL , UNSP, UNSP TRIMESTER SNOMED Code(s): 481538091 Plan: 1. induction of labor with amniotomy and pitocin. 2. anticipate normal vaginal delivery
[2022-09-14 13:42] LABS: Glucose,Whole Blood 84 mg/dL (70-110)
[2022-09-14] MEDS ORDERED: diphenhydrAMINE 50 MG CAP PO PRN (15:51)
[2022-09-14] MEDS ORDERED: BENZOCAINE/MENTHOL SPRAY 1 GM/SPRAY AEROSOL TOPICAL PRN (15:51)
[2022-09-14] MEDS ORDERED: diphenhydrAMINE 25 MG CAP PO PRN (15:51)
[2022-09-14] MEDS ORDERED: HYDROCORTISONE 2.5% RECTAL CREAM 30 GM TUBE RECTAL PRN (15:51)
[2022-09-14] MEDS ORDERED: LANOLIN CREAM 5 GM TUBE TOPICAL PRN (15:51)
[2022-09-14] MEDS ORDERED: ZOLPIDEM 5 MG TAB PO PRN (15:51)
[2022-09-14] MEDS ORDERED: SIMETHICONE 80 MG CHEWABLE PO PRN (15:51)
[2022-09-14] MEDS ORDERED: diphenhydrAMINE 50 MG/ML 1 ML VIAL IVP PRN ×2 (15:51)
[2022-09-14] MEDS: IBUPROFEN 600 MG TAB PO PRN (16:46)
[2022-09-14] MEDS: SENNOSIDES-DOCUSATE SODIUM 1 EACH TAB PO SCH (19:54)
[2022-09-14 20:07] VITALS: RESP 16
[2022-09-15] MEDS: IBUPROFEN 600 MG TAB PO PRN ×2 (05:42→12:25)
[2022-09-15] MEDS: ACETAMINOPHEN TAB 325 MG TAB PO PRN ×2 (07:02→14:02)
[2022-09-15 07:12] LABS: Basophils # (A) 0.1 k/uL (0-0.2); Basophils % (A) 0 %; Eosinophils # (A) 0.3 k/uL (0-0.7); Eosinophils % (A) 2 %; HCT 33.1 % (34.0-46.0); HGB 10.9 gm/dL (11.4-16.0); Hypochromasia Slight; Lymphocytes % (A) 19 %; MCH 29.2 pg (25.0-35.0); MCV 88.7 fL (80.0-100.0); Mean Platelet Volume 10.8; Monocytes # (A) 0.9 k/uL (0-1.0); Monocytes % (A) 6 %; Neutrophils # (A) 10.9 k/uL (1.3-7.7); Neutrophils % (A) 71 %; Platelet Count 218 k/uL (150-450); RBC 3.73 m/uL (3.80-5.40); RDW 13.6 % (11.5-15.5); WBC 15.4 k/uL (3.8-10.6)
[2022-09-15] MEDS: SENNOSIDES-DOCUSATE SODIUM 1 EACH TAB PO SCH (07:59)
[2022-09-15 08:04] VITALS: BP 123/74; PULSE 70; TEMP 97.8
--- NOTE | 2022-09-15 08:32 | P.PROBDLV ---
Vaginal Delivery Note - . Vaginal Delivery Note: 32 year old presents at 37 weeks for induction of labor due to cholestasis of . Her cervix is 1-2/60/-2. She is harsha irregularly. heart tones 145 with moderate variability and reactive. Pitocin augmentation was started and then amniotomy performed at 7:28 AM, clear fluid noted. She got uncomfortable rather quickly and had some Nubain. She then got an epidural when she was very uncomfortable. Her cervix was completely dilated at 1425. She pushed, and delivered a viable female over intact perineum under epidural anesthesia at 1436. Head delivered OA, anterior shoulder delivered gentle downward guidance for by posterior shoulder and rest of body. Nose and mouth bulb suctioned, cord clamped and cut, placed mother's abdomen. Apgars 9, 9, weight 5 lbs. 15 oz. Placenta delivered spontaneously, intact with three-vessel cord at 1439. Vagina, cervix, perineum inspected. No lacerations noted. Estimated blood loss 150 mL. Mother and baby in stable condition.
--- NOTE | 2022-09-15 08:34 | P.DS ---
Providers Date of admission: 09/14/22 05:50 Expected date of discharge: 09/15/22 Attending physician: Nasra Vidal Primary care physician: Stated None - Discharge Diagnosis(es) (1) Cholestasis of Current Visit: Yes Status: Resolved (2) Encounter for induction of labor Current Visit: Yes Status: Resolved (3) Status post normal vaginal delivery Current Visit: Yes Status: Acute Hospital Course: Patient presented for induction of labor. She underwent a normal vaginal delivery. course has been uneventful. She denies nausea, vomiting, chest pain, shortness of breath or calf pain. She'll be discharged home day #1 in stable condition to follow-up with me in 6 weeks. Plan - Discharge Summary New Discharge Prescriptions: New Ibuprofen [Motrin] 600 mg PO Q6HR PRN #30 tab PRN Reason: Mild Pain (Scale 1 To 3) No Action Albuterol Sulfate [Ventolin HFA] 1 - 2 puff INHALATION RT-Q6H PRN PRN Reason: Shortness Of Breath Dextroamphetamine/Amphetamine [Adderall] 20 mg PO BID ursodioL [Ursodiol] 300 mg PO TID hydrOXYzine HCL 10 mg PO BID Famotidine [Pepcid] 20 mg PO BID #28 tablet Vit No.179/Iron/Folic [ Tablet] 1 each PO DAILY Discharge Medication List Albuterol Sulfate [Ventolin HFA] 1 - 2 puff INHALATION RT-Q6H PRN 12/21/18 [History] Famotidine [Pepcid] 20 mg PO BID #28 tablet 04/29/22 [Rx] Dextroamphetamine/Amphetamine [Adderall] 20 mg PO BID 05/27/22 [History] Vit No.179/Iron/Folic [ Tablet] 1 each PO DAILY 05/27/22 [History] hydrOXYzine HCL 10 mg PO BID 09/07/22 [History] ursodioL [Ursodiol] 300 mg PO TID 09/07/22 [History] Ibuprofen [Motrin] 600 mg PO Q6HR PRN #30 tab 09/15/22 [Rx] Follow up Appointment(s)/Referral(s): Nasra Vidal DO [Doctor of Osteopathic Medicine] - 10/22/22 10:45 am Discharge Disposition: HOME SELF-CARE
== END 2022-09-15 16:45 | disposition home or self-care (01) | DRG 560 ==
LOC: 4FBP 05:50
PROVIDERS: ADMIT Obstetrics & Gynecology; ATTEND Obstetrics & Gynecology
PROC: 10E0XZZ Delivery of Products of Conception, External Approach (ICD-10-PCS; principal; 2022-09-14)
PROC: 10907ZC Drainage of Amniotic Fluid, Therapeutic from Products of Conception, Via Natural or Artificial Opening (ICD-10-PCS; 2022-09-14)
PROC: 00HU33Z Insertion of Infusion Device into Spinal Canal, Percutaneous Approach (ICD-10-PCS; 2022-09-14)
PROC: 3E0R3BZ Introduction of Anesthetic Agent into Spinal Canal, Percutaneous Approach (ICD-10-PCS; 2022-09-14)
DX: O26.62 Liver and biliary tract disorders in childbirth (principal); J45.909 Unspecified asthma, uncomplicated; K76.89 Other specified diseases of liver; O99.344 Other mental disorders complicating childbirth; F90.9 Attention-deficit hyperactivity disorder, unspecified type; F41.9 Anxiety disorder, unspecified; F31.9 Bipolar disorder, unspecified; O99.52 Diseases of the respiratory system complicating childbirth; Z37.0 Single live birth; Z3A.37 37 weeks gestation of pregnancy; Z82.5 Family history of asthma and other chronic lower respiratory diseases; Z88.8 Allergy status to other drugs, medicaments and biological substances; Z88.2 Allergy status to sulfonamides; Z88.1 Allergy status to other antibiotic agents
CPT/HCPCS: 80306; 85025; 86850; 86900; 86901

== ENCOUNTER 2022-09-18 22:30 | Emergency (ER) | payer OTHER ==
[2022-09-18 22:46] VITALS: RESP 18; TEMP 98.5
[2022-09-18] MEDS ORDERED: SODIUM CHLORIDE 0.9% 1,000 ML IV STA (23:24)
[2022-09-18] MEDS ORDERED: MORPHINE SULFATE 4 MG/ML SYRINGE IV STA (23:24)
[2022-09-18] MEDS ORDERED: SODIUM CHLORIDE 0.9% 500 ML 500 ML IV STA (23:24)
[2022-09-18 23:35] LABS: Basophils # (A) 0.1 k/uL (0-0.2); Basophils % (A) 1 %; Eosinophils # (A) 0.4 k/uL (0-0.7); Eosinophils % (A) 3 %; HCT 37.8 % (34.0-46.0); HGB 12.1 gm/dL (11.4-16.0); Lymphocytes # (A) 2.3 k/uL (1.0-4.8); Lymphocytes % (A) 20 %; MCH 28.2 pg (25.0-35.0); MCHC 31.9 g/dL (31.0-37.0); MCV 88.4 fL (80.0-100.0); Mean Platelet Volume 9.8; Monocytes # (A) 0.8 k/uL (0-1.0); Monocytes % (A) 7 %; Neutrophils # (A) 7.8 k/uL (1.3-7.7); Neutrophils % (A) 67 %; Platelet Count 297 k/uL (150-450); RBC 4.28 m/uL (3.80-5.40); RDW 13.5 % (11.5-15.5); WBC 11.6 k/uL (3.8-10.6)
[2022-09-18 23:47] LABS: ALT 37 U/L (4-34); AST 38 U/L (14-36); African American GFR (CKD) >90 (>60 ml/min/1.73 sqM); Albumin 3.5 g/dL (3.5-5.0); Alkaline Phosphatase 175 U/L (38-126); Amylase 75 U/L (30-110); Anion Gap 6 mmol/L; Blood Urea Nitrogen 13 mg/dL (7-17); Calcium 9.6 mg/dL (8.4-10.2); Carbon Dioxide 28 mmol/L (22-30); Chloride 103 mmol/L (98-107); Glucose 73 mg/dL (74-99); Lipase 254 U/L (23-300); Non-African American GFR(CKD) >90 (>60 ml/min/1.73 sqM); Potassium 3.9 mmol/L (3.5-5.1); Sodium 137 mmol/L (137-145); Total Bilirubin 0.4 mg/dL (0.2-1.3); Total Protein 6.6 g/dL (6.3-8.2)
[2022-09-19] MEDS ORDERED: MORPHINE SULFATE 4 MG/ML SYRINGE IV STA (01:08)
[2022-09-19 01:59] LABS: Appearance,Urine Clear (Clear); Bacteria,Urine Rare /hpf; Bilirubin,Urine Negative (Negative); Blood,Urine Large (Negative); Color,Urine Light Yellow; Glucose,Urine (UA) Negative (Negative); Ketones,Urine Negative (Negative); Leukocyte Esterase,Urine Large (Negative); Nitrite,Urine Negative (Negative); Protein,Urine Negative (Negative); RBC,Urine 18 /hpf (0-5); Specific Gravity,Urine 1.007 (1.001-1.035); Squamous Epithelial Cell,Urine 1 /hpf (0-4); Urobilinogen,Urine <2.0 mg/dL (<2.0); WBC,Urine 30 /hpf (0-5)
--- NOTE | 2022-09-19 02:42 | ED ---
Abdominal Pain HPI - General Source: patient Mode of arrival: wheelchair Limitations: no limitations - History of Present Illness Complaint: abdominal pain -: hour(s) Location: RLQ Radiation: none Migration to: no migration Severity: severe Quality: aching Consistency: constant Improves With: nothing Worsens With: nothing Associated Symptoms: denies other symptoms - Related Data LMP (females 10-50): other <Andre Ya - Last Filed: 09/19/22 02:42> <Roger Borrego - Last Filed: 09/19/22 03:56> - General Chief Complaint: Abdominal Pain Stated Complaint: Pain in lower abdomen, 4 days PP Time Seen by Provider: 09/18/22 22:54 - History of Present Illness Initial Comments: This patient is a 32-year-old woman who presents to have evaluation of lower abdominal pain greater on the right side, and having past 2 moderate sized clots. The patient is now day four, after a normal spontaneous vaginal . She states there were no complications, she stated today and then went home. She states she had been doing fairly well and then over the course of tonight noticed increasing pain and she passed the clots. She has not had fever or chills. She has not had nausea, vomiting, diarrhea. There have been no urinary symptoms. No frequency, urgency, dysuria. There is no chest pain, dyspnea, palpitations, leg pain or swelling. (Andre Ya) - Related Data Home Medications Medication Instructions Recorded Confirmed Albuterol Sulfate [Ventolin HFA] 1 - 2 puff INHALATION RT-Q6H PRN 12/21/18 09/14/22 Dextroamphetamine/Amphetamine 20 mg PO BID 05/27/22 09/14/22 [Adderall] Vit No.179/Iron/Folic 1 each PO DAILY 05/27/22 09/14/22 [ Tablet] hydrOXYzine HCL 10 mg PO BID 09/07/22 09/14/22 ursodioL [Ursodiol] 300 mg PO TID 09/07/22 09/14/22 Previous Rx's Medication Instructions Recorded Famotidine [Pepcid] 20 mg PO BID #28 tablet 04/29/22 Ibuprofen [Motrin] 600 mg PO Q6HR PRN #30 tab 09/15/22 Allergies Allergy/AdvReac Type Severity Reaction Status Date / Time methylphenidate HCl Allergy Mild Unknown Verified 09/18/22 22:46 [From Metadate CD] trimethoprim [From Bactrim] Allergy Mild Rash/Hives Verified 09/18/22 22:46 azithromycin Allergy Rash/Hives Verified 09/18/22 22:46 sulfamethoxazole Allergy Rash/Hives Verified 09/18/22 22:46 [From Bactrim] cephalexin [From Keflex] AdvReac Mild Nausea & Verified 09/18/22 22:46 Vomiting Review of Systems ROS Other: All systems not noted in ROS Statement are negative. Constitutional: Denies: fever, chills Respiratory: Denies: cough, dyspnea Cardiovascular: Denies: chest pain, palpitations, edema Gastrointestinal: Reports: abdominal pain. Denies: nausea, vomiting, diarrhea, constipation Genitourinary: Reports: discharge (2 large clots). Denies: dysuria, hematuria Musculoskeletal: Denies: back pain Skin: Denies: rash Neurological: Denies: headache, weakness, numbness <Andre Ya - Last Filed: 09/19/22 02:42> ROS Other: All systems not noted in ROS Statement are negative. <Roger Borrego - Last Filed: 09/19/22 03:56> ROS Statement: Those systems with pertinent positive or pertinent negative responses have been documented in the HPI. Past Medical History Past Medical History: Asthma Additional Past Medical History / Comment(s): hypoglycemia, elevated liver enzymes History of Any Multi-Drug Resistant Organisms: None Reported Past Surgical History: Tonsillectomy Additional Past Surgical History / Comment(s): oral surgery Past Anesthesia/Blood Transfusion Reactions: No Reported Reaction Past Psychological History: ADD/ADHD, Anxiety, Bipolar, Depression Smoking Status: Vaper Past Alcohol Use History: None Reported Past Drug Use History: None Reported - Past Family History Mother Family Medical History: Asthma, Thyroid Disorder <Andre Ya - Last Filed: 09/19/22 02:42> General Exam Limitations: no limitations General appearance: alert, in no apparent distress Head exam: Present: atraumatic, normocephalic Eye exam: Present: normal appearance. Absent: scleral icterus, conjunctival injection Neck exam: Present: normal inspection Respiratory exam: Present: normal lung sounds bilaterally. Absent: respiratory distress, wheezes, rales, rhonchi, stridor Cardiovascular Exam: Present: regular rate, normal rhythm, normal heart sounds. Absent: systolic murmur, diastolic murmur, rubs, gallop GI/Abdominal exam: Present: soft, tenderness (Mild suprapubic and right lower quadrant tenderness, no rebound or guarding). Absent: distended, guarding, rebound, rigid, mass, pulsatile mass, hernia External exam: Present: normal external exam. Absent: lacerations By manual exam: Present: other (Mild right lower quadrant tenderness). Absent: uterine enlargement, uterine tenderness Extremities exam: Present: normal inspection, normal capillary refill. Absent: pedal edema, calf tenderness Back exam: Present: normal inspection. Absent: CVA tenderness (R), CVA tenderness (L) Neurological exam: Present: alert Skin exam: Present: warm, dry, intact, normal color. Absent: rash <Andre Ya - Last Filed: 09/19/22 02:42> Course Vital Signs 09/18/22 09/19/22 09/19/22 22:43 02:25 03:51 Temperature 98.5 F Pulse Rate 90 70 71 Respiratory 18 18 18 Rate Blood Pressure 129/88 123/59 126/84 O2 Sat by Pulse 100 97 98 Oximetry Medical Decision Making - Lab Data Result diagrams: 09/18/22 23:16 09/18/22 23:16 <Andre Ya - Last Filed: 09/19/22 02:42> - Lab Data Result diagrams: 09/18/22 23:16 09/18/22 23:16 <Roger Borrego - Last Filed: 09/19/22 03:56> - Medical Decision Making Was pt. sent in by a medical professional or institution (Dr. PA, PLUMBING ENGINEER, urgent care, hospital, or care home...) When possible be specific @ -[No] Did you speak to anyone other than the patient for history (EMS, parent, family, police, friend...)? What history was obtained from this source @ -[No] Did you review nursing and triage notes (agree or disagree)? Why? @ -[I reviewed and agree with nursing and triage notes] Were old charts reviewed (outside hosp., previous admission, EMS record, old EKG, old radiological studies, urgent care reports/EKG's, care home records)? Report findings @ -[No old charts were reviewed] Differential Diagnosis (chest pain, altered mental status, abdominal pain women, abdominal pain men, vaginal bleeding, weakness, fever, dyspnea, syncope, headache, dizziness, GI bleed, back pain, seizure, CVA, palpatations, mental health, musculoskeletal)? @ -[Differential Abdominal Pain Women: Appendicitis, Cholecystitis, diverticulosis, ischemic bowel, pancreatitis, hepatitis, UTI, gastroenteritis, AAA, incarcerated hernia, bowel obstruction, constipation, inflammatory bowel, hepatitis, peptic ulcer disease, splenic infarction, perforated viscus, vulvitis, ovarian torsion, PID, kidney stone, placenta abruption, this is not meant to be an all-inclusive list EKG interpreted by me (3pts min.). @ -[ X-rays interpreted by me (1pt min.). @ -[None done] CT interpreted by me (1pt min.). @ -[None done] U/S interpreted by me (1pt. min.). @ -[None done] What testing was considered but not performed or refused? (CT, X-rays, U/S, labs)? Why? @ -[None] What meds were considered but not given or refused? Why? @ -[None] Did you discuss the management of the patient with other professionals (professionals i.e. , PA, PLUMBING ENGINEER, lab, RT, psych nurse, social insurance analyst, braker passenger train, teacher, department of natural resources officer, heel caser)? Give summary @ -[No] Was smoking cessation discussed for >3mins.? @ -[No] Was critical care preformed (if so, how long)? @ -[No] Were there social determinants of health that impacted care today? How? (Homelessness, low income, unemployed, alcoholism, drug addiction, transportation, low edu. Level, literacy, decrease access to med. care, [facility], rehab)? @ -[No] Was there de-escalation of care discussed even if they declined (Discuss DNR or withdrawal of care, Hospice)? DNR status @ -[No] What co-morbidities impacted this encounter? (DM, HTN, Smoking, COPD, CAD, Cancer, CVA, ARF, Chemo, Hep., AIDS, mental health diagnosis, sleep apnea, morbid obesity)? @ -[None] Was patient admitted / discharged? Hospital course, mention meds given and route, prescriptions, significant lab abnormalities, going to OR and other pertinent info. @ The patient is signed out pending a radiology read of the abdominal ultrasound. She has had analgesic with good relief of her pain. She is not having further bleeding. We did discuss that she may not breast-feed for 6 h ours following the morphine administration and that she must pump and then not use the breast milk due to risk of suppressing the neonates respiratory drive. She did express good understanding of this concept. (Andre Ya) Patient signed out to me pending results of ultrasound. Presents 5 days with abdominal pain and some vaginal bleeding. Not hemorrhaging. Is not on blood thinners. Describes the pain as achy. Somewhat generalized. Ultrasound was obtained. Patient responded well to pain medication. Labs unremarkable. Ultrasound revealed a clot at the cervix but no retained products of conception and no other abnormalities. This was interpreted by radiology. I reevaluated the patient and she was pain-free. We discussed results. She will follow up with CREDIT ADVISOR. She was in agreement this plan. Strict return precautions discussed. I instructed the patient to follow up with their PCP in the next 1-3 days. I explained that the patient should return to the emergency department if they experience any worsening symptoms. Strict return precautions were discussed with the patient. The patient expressed understanding of these instructions. I answered all questions that the patient had. The patient was discharged home in good condition with their prescriptions and follow up information. Diagnosis/symptom? @ -Abdominal pain, Acute, or Chronic, or Acute on Chronic? @ -Acute Uncomplicated (without systemic symptoms) or Complicated (systemic symptoms)? @ -Complicated Side effects of treatment? @ -none Exacerbation, Progression, or Severe Exacerbation] @ -no Poses a threat to life or bodily function? @ -no (Roger Borrego) - Lab Data Lab Results 09/18/22 09/18/22 09/18/22 Range/Units 23:16 23:16 23:16 WBC 11.6 H (3.8-10.6) k/uL RBC 4.28 (3.80-5.40) m/uL Hgb 12.1 (11.4-16.0) gm/dL Hct 37.8 (34.0-46.0) % MCV 88.4 (80.0-100.0) fL MCH 28.2 (25.0-35.0) pg MCHC 31.9 (31.0-37.0) g/dL RDW 13.5 (11.5-15.5) % Plt Count 297 (150-450) k/uL MPV 9.8 Neutrophils % 67 % Lymphocytes % 20 % Monocytes % 7 % Eosinophils % 3 % Basophils % 1 % Neutrophils # 7.8 H (1.3-7.7) k/uL Lymphocytes # 2.3 (1.0-4.8) k/uL Monocytes # 0.8 (0-1.0) k/uL Eosinophils # 0.4 (0-0.7) k/uL Basophils # 0.1 (0-0.2) k/uL Sodium 137 (137-145) mmol/L Potassium 3.9 (3.5-5.1) mmol/L Chloride 103 (98-107) mmol/L Carbon Dioxide 28 (22-30) mmol/L Anion Gap 6 mmol/L BUN 13 (7-17) mg/dL Creatinine 0.62 (0.52-1.04) mg/dL Est GFR (CKD-EPI)AfAm >90 (>60 ml/min/1.73 sqM) Est GFR (CKD-EPI)NonAf >90 (>60 ml/min/1.73 sqM) Glucose 73 L (74-99) mg/dL Plasma Lactic Acid Chip (0.7-2.0) mmol/L Calcium 9.6 (8.4-10.2) mg/dL Total Bilirubin 0.4 (0.2-1.3) mg/dL AST 38 H (14-36) U/L ALT 37 H (4-34) U/L Alkaline Phosphatase 175 H (38-126) U/L C-Reactive Protein 3.0 H (<1.0) mg/dL Total Protein 6.6 (6.3-8.2) g/dL Albumin 3.5 (3.5-5.0) g/dL Amylase 75 (30-110) U/L Lipase 254 (23-300) U/L Urine Color Light Yellow Urine Appearance Clear (Clear) Urine pH 7.0 (5.0-8.0) Ur Specific [place] 1.007 (1.001-1.035) Urine Protein Negative (Negative) Urine Glucose (UA) Negative (Negative) Urine Ketones Negative (Negative) Urine Blood Large H (Negative) Urine Nitrite Negative (Negative) Urine Bilirubin Negative (Negative) Urine Urobilinogen <2.0 (<2.0) mg/dL Ur Leukocyte Esterase Large H (Negative) Urine RBC 18 H (0-5) /hpf Urine WBC 30 H (0-5) /hpf Urine WBC Clumps Rare H (None) /hpf Ur Squamous Epith Cells 1 (0-4) /hpf Urine Bacteria Rare H (None) /hpf 09/18/22 Range/Units 23:16 WBC (3.8-10.6) k/uL RBC (3.80-5.40) m/uL Hgb (11.4-16.0) gm/dL Hct (34.0-46.0) % MCV (80.0-100.0) fL MCH (25.0-35.0) pg MCHC (31.0-37.0) g/dL RDW (11.5-15.5) % Plt Count (150-450) k/uL MPV Neutrophils % % Lymphocytes % % Monocytes % % Eosinophils % % Basophils % % Neutrophils # (1.3-7.7) k/uL Lymphocytes # (1.0-4.8) k/uL Monocytes # (0-1.0) k/uL Eosinophils # (0-0.7) k/uL Basophils # (0-0.2) k/uL Sodium (137-145) mmol/L Potassium (3.5-5.1) mmol/L Chloride (98-107) mmol/L Carbon Dioxide (22-30) mmol/L Anion Gap mmol/L BUN (7-17) mg/dL Creatinine (0.52-1.04) mg/dL Est GFR (CKD-EPI)AfAm (>60 ml/min/1.73 sqM) Est GFR (CKD-EPI)NonAf (>60 ml/min/1.73 sqM) Glucose (74-99) mg/dL Plasma Lactic Acid Chip 0.8 (0.7-2.0) mmol/L Calcium (8.4-10.2) mg/dL Total Bilirubin (0.2-1.3) mg/dL AST (14-36) U/L ALT (4-34) U/L Alkaline Phosphatase (38-126) U/L C-Reactive Protein (<1.0) mg/dL Total Protein (6.3-8.2) g/dL Albumin (3.5-5.0) g/dL Amylase (30-110) U/L Lipase (23-300) U/L Urine Color Urine Appearance (Clear) Urine pH (5.0-8.0) Ur Specific [place] (1.001-1.035) Urine Protein (Negative) Urine Glucose (UA) (Negative) Urine Ketones (Negative) Urine Blood (Negative) Urine Nitrite (Negative) Urine Bilirubin (Negative) Urine Urobilinogen (<2.0) mg/dL Ur Leukocyte Esterase (Negative) Urine RBC (0-5) /hpf Urine WBC (0-5) /hpf Urine WBC Clumps (None) /hpf Ur Squamous Epith Cells (0-4) /hpf Urine Bacteria (None) /hpf Disposition <Andre Ya - Last Filed: 09/19/22 02:42> Is patient prescribed a controlled substance at d/c from ED?: No Time of Disposition: 03:45 <Roger Borrego - Last Filed: 09/19/22 03:56> Clinical Impression: Abdominal pain Disposition: HOME SELF-CARE Condition: Good Instructions (If sedation given, give patient instructions): Abdominal Pain (ED) Referrals: Nonstaff,Physician [Primary Care Provider] - 1-2 days
--- NOTE | 2022-09-19 03:11 | US ---
EXAM: US Pelvis Transabdominal, Complete CLINICAL HISTORY: US Reason: RLQ pain TECHNIQUE: Real-time complete transabdominal pelvic ultrasound with image documentation. COMPARISON: No relevant prior studies available. FINDINGS: Uterus/cervix: There is a complex oval low density structure in the cervix measuring 2.6 x 2.1 x 0.7 cm. The uterus measures 14.1 x 7.6 x 10. 7 cm consistent with status. The endometrial stripe is thickened measuring 2 cm. No myometrial mass. Right ovary: The right ovary measures 2.7 x 1.6 x 3.2 cm with normal Doppler blood flow. Left ovary: The left ovary measures 2.3 x 1.2 x 1.7 cm with normal Doppler blood flow. Free fluid: No free fluid. Bladder: Unremarkable as visualized. Wall is normal thickness for degree of distention. IMPRESSION: There is a complex oval low density structure in the cervix measuring 2. 6 x 2.1 x 0.7 cm. Likely small amounts of thrombus. No abnormal Doppler blood flow is seen.
[2022-09-19 03:52] VITALS: BP 126/84; PULSE 71
== END 2022-09-19 04:00 | disposition home or self-care (01) ==
LOC: EC 22:30
DX: R10.31 Right lower quadrant pain (principal); J45.909 Unspecified asthma, uncomplicated; F90.9 Attention-deficit hyperactivity disorder, unspecified type; F41.9 Anxiety disorder, unspecified; F31.9 Bipolar disorder, unspecified; F17.290 Nicotine dependence, other tobacco product, uncomplicated; Z79.899 Other long term (current) drug therapy; Z88.2 Allergy status to sulfonamides; Z88.6 Allergy status to analgesic agent; Z88.1 Allergy status to other antibiotic agents; Z88.8 Allergy status to other drugs, medicaments and biological substances
CPT/HCPCS: 36415; 80053; 82150; 83605; 83690; 85025; 86140; 81001; 93975; 76856; 99284; 96374; 96376; 96361 ×4; J2270 ×2

== ENCOUNTER 2023-02-08 21:13 | Emergency (ER) | payer OTHER ==
[2023-02-08 21:38] VITALS: RESP 18
[2023-02-08 21:40] LABS: Glucose,Whole Blood 93 mg/dL (70-110)
[2023-02-08] MEDS ORDERED: SODIUM CHLORIDE 0.9% 1,000 ML IV STA (21:47)
[2023-02-08] MEDS ORDERED: LORazepam 2 MG/ML INJ IV STA ×2 (21:48→22:12)
--- NOTE | 2023-02-08 21:55 | ED ---
General Adult HPI - General Chief complaint: Neuro Symptoms/Deficit Stated complaint: L Side Numb, Poss Stroke Time Seen by Provider: 02/08/23 21:48 Source: patient, RN notes reviewed, old records reviewed Mode of arrival: ambulatory Limitations: no limitations - History of Present Illness Initial comments: Patient is a 32-year-old female presents emergency Department complaining of left-sided deficits from last hour and a half. Primary complaint of left-sided numbness. Also had an episode where she states that her "arm locked up." Is not persistent. Currently is only complaining of left-sided numbness. States she is not under a lot of stress lately with a bad relationship as well as difficulty with other social aspects of her life. Is tearful. Has a history of anxiety as well. Also is concerned about a dental infection. Denies any other acute complaints including denying fevers, chills, cough, chest pain.Denies any other significant Medical history otherwise. Denies any alcohol or drug use. Presents for further evaluation at this time. Last known well was approximately 8 PM. No trauma. No falls. - Related Data Home Medications Medication Instructions Recorded Confirmed Albuterol Sulfate [Ventolin HFA] 1 - 2 puff INHALATION RT-Q6H PRN 12/21/18 02/08/23 Dextroamphetamine/Amphetamine 30 mg PO BID 02/08/23 02/08/23 [Adderall] Penicillin V Potassium [Pen Vee K] 500 mg PO Q6H 02/08/23 02/08/23 Allergies Allergy/AdvReac Type Severity Reaction Status Date / Time methylphenidate HCl Allergy Mild Unknown Verified 02/08/23 22:17 [From Metadate CD] cephalexin [From Keflex] Allergy Unknown Rash/Hives Verified 02/08/23 22:17 trimethoprim [From Bactrim] Allergy Unknown Rash/Hives Verified 02/08/23 22:17 azithromycin Allergy swelling Verified 02/08/23 22:17 of mouth ciprofloxacin [From Cipro] Allergy Rash/Hives Verified 02/08/23 22:17 sulfamethoxazole Allergy Rash/Hives Verified 02/08/23 22:17 [From Bactrim] Review of Systems ROS Statement: Those systems with pertinent positive or pertinent negative responses have been documented in the HPI. Review of Systems: CONST: Denies fever EYES: Denies blurry vision ENT: Denies nasal congestion C/V: Denies Chest pain RESP: Denies shortness of breath GI: Denies abdominal pain : Denies dysuria SKIN: Denies rash. MSK: Denies joint pain. NEURO: Endorses left sided numbness ROS Other: All systems not noted in ROS Statement are negative. Past Medical History Past Medical History: Asthma Additional Past Medical History / Comment(s): hypoglycemia, elevated liver enzymes History of Any Multi-Drug Resistant Organisms: None Reported Past Surgical History: Tonsillectomy Additional Past Surgical History / Comment(s): oral surgery Past Anesthesia/Blood Transfusion Reactions: No Reported Reaction Past Psychological History: ADD/ADHD, Anxiety, Bipolar, Depression Smoking Status: Vaper Past Alcohol Use History: None Reported Past Drug Use History: None Reported - Past Family History Mother Family Medical History: Asthma, Thyroid Disorder General Exam - General Exam Comments Initial Comments: General: Appears extremely anxious, tearful. HEAD: Normal with no signs of head trauma. EYES: PERRLA, EOMI, conjunctiva normal, no discharge. Pupils are 3-4 mm and equal bilaterally. ENT: Hearing grossly intact, normal oropharynx. RESPIRATORY: Clear breath sounds bilaterally. No wheezes, rales, or rhonchi. C/V: Tachycardic with regular rhythm. S1 and S2 auscultated, no edema, peripheral pulses 2+ and intact throughout ABD: Abd is soft, nontender, nondistended EXT: Normal range of motion, no obvious deformity SKIN: No rashes or lesions observed on exposed skin. NEURO: Alert and oriented x 4. NIH of 1 for left facial numbness and left upper extremity numbness. Last known well was approximately 1999. Limitations: no limitations Course Vital Signs 02/08/23 02/08/23 02/08/23 21:25 21:47 22:02 Temperature 98.0 F 98.1 F Pulse Rate 120 H 107 H 101 H Respiratory 18 18 18 Rate Blood Pressure 141/81 132/79 133/93 O2 Sat by Pulse 98 98 97 Oximetry 02/08/23 02/08/23 02/09/23 22:17 22:32 01:15 Temperature 98.2 F 98.3 F 98.7 F Pulse Rate 103 H 98 96 Respiratory 18 18 18 Rate Blood Pressure 134/89 140/95 132/88 O2 Sat by Pulse 98 98 99 Oximetry Medical Decision Making - Medical Decision Making Was pt. sent in by a medical professional or institution (NEENA Berger, AIRCRAFT ENGINE TECHNICIAN, urgent c are, hospital, or [facility]...) When possible be specific @ -No Did you speak to anyone other than the patient for history (EMS, parent, family, police, friend...)? What history was obtained from this source @ -No Did you review nursing and triage notes (agree or disagree)? Why? @ -I reviewed and agree with nursing and triage notes Were old charts reviewed (outside hosp., previous admission, EMS record, old EKG, old radiological studies, urgent care reports/EKG's, [facility] records)? Report findings @ -No old charts were reviewed Differential Diagnosis (chest pain, altered mental status, abdominal pain women, abdominal pain men, vaginal bleeding, weakness, fever, dyspnea, syncope, headache, dizziness, GI bleed, back pain, seizure, CVA, palpatations, mental health, musculoskeletal)? @ -Differential CVA Ischemic stroke, hemorrhagic stroke, brain tumor, atypical migraine, Wernicke's encephalopathy, seizure, multiple sclerosis, meningitis, encephalitis, hypoglycemia, Guillain-Rivers, electrolytes disturbance, myasthenia gravis.... This is not meant to be an all-inclusive list EKG interpreted by me (3pts min.). @ -As above X-rays interpreted by me (1pt min.). @ -Chest x-ray shows no obvious acute cardio, process. CT interpreted by me (1pt min.). @ -CT brain reveals no no obvious intracranial hemorrhage or stroke. Patient does have an underlying mass the right cerebellar pontine angle concerning for primary brain neoplasm. CT angiogram of the brain reveals no evidence of large vessel occlusion. U/S interpreted by me (1pt. min.). @ -None done What testing was considered but not performed or refused? (CT, X-rays, U/S, labs)? Why? @ -None What meds were considered but not given or refused? Why? @ -None Did you discuss the management of the patient with other professionals (professionals i.e. NEENA Berger, AIRCRAFT ENGINE TECHNICIAN, lab, RT, psych nurse, social service worker, mineral ore processing labourer, teacher, investment officer, director of casework services)? Give summary @ -Discussed the stroke activation with neuro critical care Dr. Waggoner. Was in agreement with plan for imaging and no TPA as risks far outweigh benefits and patient is very minor symptoms. Discussed results with Dr. Diaz of neurology who recommended transfer for evaluation by neurosurgery.I spoke with NERY Horowitz, and neurosurgeon Dr. Bartlett accepted the patient. I spoke with the ER attending at [facility] Dr. Denise who accepted the patient. Patient transferred in stable condition. Was smoking cessation discussed for >3mins.? @ -No Was critical care preformed (if so, how long)? @ -Yes, 40 minutes Were there social determinants of health that impacted care today? How? (Homelessness, low income, unemployed, alcoholism, drug addiction, transportation, low edu. Level, literacy, decrease access to med. care, nursing home, r ehab)? @ -No Was there de-escalation of care discussed even if they declined (Discuss DNR or withdrawal of care, Hospice)? DNR status @ -No What co-morbidities impacted this encounter? (DM, HTN, Smoking, COPD, CAD, Cancer, CVA, ARF, Chemo, Hep., AIDS, mental health diagnosis, sleep apnea, morbid obesity)? @ -None Was patient admitted / discharged? Hospital course, mention meds given and route, prescriptions, significant lab abnormalities, going to OR and other pertinent info. @ -Based on patient's presentation and physical exam, I cannot definitively rule out CVA as the cause of her current symptoms. She does have left-sided face and arm numbness at this time. Last known well at 1999 with sudden onset of symptoms at that time. Does appear extremely anxious however due to the sudden onset of symptoms we will activated the code stroke. NIH was 1. Patient is not a TPA candidate as there could be other etiology for her current symptoms as well as the fact that her deficits are minor and risks far outweigh the benefits. I will discuss this with the neuro critical care physician. Patient agreement this plan. Vital signs rectal for mild tachycardia likely secondary to anxiety. She'll be given IV fluids as well as a dose of IV Ativan. Patient moved to trauma bay 2 after evaluated the patient in the triage mancini. I spoke with on-call neuro critical care Dr. Waggoner who was in agreement with the plan. Likely medical management pending results of imaging. In agreement that patient is not a TPA candidate. CT imaging returned remarkable for a mass located at the right cerebellar pontine angle with calcifications inside of it. No evidence of mass effect or edema. Patient's laboratory studies returned within acceptable limits. Patient's neuro symptoms resolved after Ativan administration. She is resting comfortably at this time.NIH currently 0. I updated the patient of the findings. I spoke with our on-call neurologist, Dr. Diaz regarding the findings, and he recommends transfer for evaluation by neurosurgery due to the patient's age as well as presenting symptoms. I spoke with the patient regarding this and she was in agreement this plan. Patient like to be transferred to [facility]. I will contact Dr. Waggoner to update him on the results and the plan. He was called at [phone] with no response. I spoke with [facility], and neurosurgeon Dr. Bartlett accepted the patient. I spoke with the ER attending at [facility] Dr. Denise who accepted the patient. Patient transferred in stable condition. Undiagnosed new problem with uncertain prognosis? @ -No Drug Therapy requiring intensive monitoring for toxicity (Heparin, Nitro, Insulin, Cardizem)? @ -No Were any procedures done? 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 @ -Acute Uncomplicated (without systemic symptoms) or Complicated (systemic symptoms)? @ -Complicated Side effects of treatment? @ -none Exacerbation, Progression, or Severe Exacerbation] @ -no Poses a threat to life or bodily function? @ -Yes - Lab Data Result diagrams: 02/08/23 22:03 02/08/23 22:03 Lab Results 02/08/23 02/08/23 02/08/23 Range/Units 21:38 22:03 22:03 WBC 10.4 (3.8-10.6) k/uL RBC 4.86 (3.80-5.40) m/uL Hgb 13.8 (11.4-16.0) gm/dL Hct 41.6 (34.0-46.0) % MCV 85.5 (80.0-100.0) fL MCH 28.4 (25.0-35.0) pg MCHC 33.2 (31.0-37.0) g/dL RDW 13.6 (11.5-15.5) % Plt Count 342 (150-450) k/uL MPV 8.7 Neutrophils % 63 % Lymphocytes % 26 % Monocytes % 5 % Eosinophils % 4 % Basophils % 1 % Neutrophils # 6.6 (1.3-7.7) k/uL Lymphocytes # 2.7 (1.0-4.8) k/uL Monocytes # 0.5 (0-1.0) k/uL Eosinophils # 0.4 (0-0.7) k/uL Basophils # 0.1 (0-0.2) k/uL PT 10.2 (10.0-12.5) sec INR 0.9 (<1.2) APTT 26.8 (22.0-30.0) sec Sodium (137-145) mmol/L Potassium (3.5-5.1) mmol/L Chloride (98-107) mmol/L Carbon Dioxide (22-30) mmol/L Anion Gap mmol/L BUN (7-17) mg/dL Creatinine (0.52-1.04) mg/dL Est GFR (CKD-EPI)AfAm (>60 ml/min/1.73 sqM) Est GFR (CKD-EPI)NonAf (>60 ml/min/1.73 sqM) Glucose (74-99) mg/dL POC Glucose (mg/dL) 93 (70-110) mg/dL POC Glu Surgical Specialist ID [place] Calcium (8.4-10.2) mg/dL Total Bilirubin (0.2-1.3) mg/dL AST (14-36) U/L ALT (4-34) U/L Alkaline Phosphatase (38-126) U/L Creatine Kinase (30-135) U/L Troponin I (0.000-0.034) ng/mL Total Protein (6.3-8.2) g/dL Albumin (3.5-5.0) g/dL Urine Color Urine Appearance (Clear) Urine pH (5.0-8.0) Ur Specific [place] (1.001-1.035) Urine Protein (Negative) Urine Glucose (UA) (Negative) Urine Ketones (Negative) Urine Blood (Negative) Urine Nitrite (Negative) Urine Bilirubin (Negative) Urine Urobilinogen (<2.0) mg/dL Ur Leukocyte Esterase (Negative) Urine RBC (0-5) /hpf Urine WBC (0-5) /hpf Ur Squamous Epith Cells (0-4) /hpf Amorphous Sediment (None) /hpf Urine Bacteria (None) /hpf Urine Mucus (None) /hpf Urine Opiates Screen (NotDetected) Ur Oxycodone Screen (NotDetected) Urine Methadone Screen (NotDetected) Ur Propoxyphene Screen (NotDetected) Ur Barbiturates Screen (NotDetected) U Tricyclic Antidepress (NotDetected) Ur Phencyclidine Scrn (NotDetected) Ur Amphetamines Screen (NotDetected) U Methamphetamines Scrn (NotDetected) U Benzodiazepines Scrn (NotDetected) Urine Cocaine Screen (NotDetected) U Marijuana (THC) Screen (NotDetected) Serum Alcohol mg/dL 02/08/23 02/08/23 02/08/23 Range/Units 22:03 22:03 22:03 WBC (3.8-10.6) k/uL RBC (3.80-5.40) m/uL Hgb (11.4-16.0) gm/dL Hct (34.0-46.0) % MCV (80.0-100.0) fL MCH (25.0-35.0) pg MCHC (31.0-37.0) g/dL RDW (11.5-15.5) % Plt Count (150-450) k/uL MPV Neutrophils % % Lymphocytes % % Monocytes % % Eosinophils % % Basophils % % Neutrophils # (1.3-7.7) k/uL Lymphocytes # (1.0-4.8) k/uL Monocytes # (0-1.0) k/uL Eosinophils # (0-0.7) k/uL Basophils # (0-0.2) k/uL PT (10.0-12.5) sec INR (<1.2) APTT (22.0-30.0) sec Sodium 138 (137-145) mmol/L Potassium 4.2 (3.5-5.1) mmol/L Chloride 99 (98-107) mmol/L Carbon Dioxide 24 (22-30) mmol/L Anion Gap 15 mmol/L BUN 11 (7-17) mg/dL Creatinine 0.78 (0.52-1.04) mg/dL Est GFR (CKD-EPI)AfAm >90 (>60 ml/min/1.73 sqM) Est GFR (CKD-EPI)NonAf >90 (>60 ml/min/1.73 sqM) Glucose 86 (74-99) mg/dL POC Glucose (mg/dL) (70-110) mg/dL POC Glu Surgical Specialist ID Calcium 9.9 (8.4-10.2) mg/dL Total Bilirubin 0.7 (0.2-1.3) mg/dL AST 41 H (14-36) U/L ALT 67 H (4-34) U/L Alkaline Phosphatase 107 (38-126) U/L Creatine Kinase 197 H (30-135) U/L Troponin I <0.012 (0.000-0.034) ng/mL Total Protein 8.2 (6.3-8.2) g/dL Albumin 4.9 (3.5-5.0) g/dL Urine Color Colorless Urine Appearance Cloudy H (Clear) Urine pH 6.5 (5.0-8.0) Ur Specific [place] 1.001 (1.001-1.035) Urine Protein Negative (Negative) Urine Glucose (UA) Negative (Negative) Urine Ketones Negative (Negative) Urine Blood Negative (Negative) Urine Nitrite Negative (Negative) Urine Bilirubin Negative (Negative) Urine Urobilinogen <2.0 (<2.0) mg/dL Ur Leukocyte Esterase Negative (Negative) Urine RBC 1 (0-5) /hpf Urine WBC 4 (0-5) /hpf Ur Squamous Epith Cells 9 H (0-4) /hpf Amorphous Sediment Rare H (None) /hpf Urine Bacteria Occasional H (None) /hpf Urine Mucus Rare H (None) /hpf Urine Opiates Screen Not Detected (NotDetected) Ur Oxycodone Screen Not Detected (NotDetected) Urine Methadone Screen Not Detected (NotDetected) Ur Propoxyphene Screen Not Detected (NotDetected) Ur Barbiturates Screen Not Detected (NotDetected) U Tricyclic Antidepress Not Detected (NotDetected) Ur Phencyclidine Scrn Not Detected (NotDetected) Ur Amphetamines Screen Detected H (NotDetected) U Methamphetamines Scrn Not Detected (NotDetected) U Benzodiazepines Scrn Not Detected (NotDetected) Urine Cocaine Screen Detected H (NotDetected) U Marijuana (THC) Screen Not Detected (NotDetected) Serum Alcohol <10 mg/dL - EKG Data -: EKG Interpreted by Me EKG Comments: 12-lead Electrocardiogram Interpretation Note EKG was reviewed and interpreted by myself. 12-lead ECG performed at 2210 is interpreted by me as revealing sinus tachycardia at a rate of 100 beats per mayank te. [place] is normal. NM Intervals 156 ms, QRS duration is 86 ms, QTc is 405 ms.. There were no ST or T wave abnormalities to suggest myocardial ischemia or injury. R wave progression across the precordium was satisfactory. By my interpretation this EKG is non-diagnostic for acute ischemia. Critical Care Time Critical Care Time: Yes Total Critical Care Time: 40 Disposition Clinical Impression: Brain tumor Disposition: OTHER INSTITUTION NOT DEFINED Condition: Stable Is patient prescribed a controlled substance at d/c from ED?: No Referrals: None,Stated [REFERRING] - 1-2 days Time of Disposition: 23:15 - Out of Hospital Transfer - Req. Specs Out of Hospital Transfer - Requested Specifics: Other Emergency Center (transferred to [facility] for neurosurgery evaluation.)
[2023-02-08 22:09] LABS: Basophils # (A) 0.1 k/uL (0-0.2); Basophils % (A) 1 %; Eosinophils # (A) 0.4 k/uL (0-0.7); Eosinophils % (A) 4 %; HCT 41.6 % (34.0-46.0); HGB 13.8 gm/dL (11.4-16.0); Lymphocytes # (A) 2.7 k/uL (1.0-4.8); Lymphocytes % (A) 26 %; MCH 28.4 pg (25.0-35.0); MCHC 33.2 g/dL (31.0-37.0); MCV 85.5 fL (80.0-100.0); Mean Platelet Volume 8.7; Monocytes # (A) 0.5 k/uL (0-1.0); Monocytes % (A) 5 %; Neutrophils # (A) 6.6 k/uL (1.3-7.7); Neutrophils % (A) 63 %; Platelet Count 342 k/uL (150-450); RBC 4.86 m/uL (3.80-5.40); RDW 13.6 % (11.5-15.5); WBC 10.4 k/uL (3.8-10.6)
--- NOTE | 2023-02-08 22:18 | CT ---
EXAM: CT Head Without Intravenous Contrast CLINICAL HISTORY: ITS.REASON CT Reason: Neuro deficit, acute, stroke suspected TECHNIQUE: Axial computed tomography images of the head/brain without intravenous contrast. CTDI is 49.1 mGy and DLP is 1163 mGy-cm. This CT exam was performed using one or more of the following dose reduction techniques: automated exposure control, adjustment of the mA and/or kV according to patient size, and/or use of iterative reconstruction technique. COMPARISON: No relevant prior studies available. FINDINGS: Brain: No acute intracranial hemorrhage. No acute transcortical infarct. There is a partially calcified hypodense structure within the right cerebellar pontine angle extending into the right cerebellum measuring roughly 2.0 x 3 cm with slight extension medially into the vermis. No significant white matter disease. Ventricles: Unremarkable. No ventriculomegaly. Bones/joints: Unremarkable. No acute fracture. Soft tissues: Unremarkable. Sinuses: Unremarkable as visualized. No acute sinusitis. Mastoid air cells: Unremarkable as visualized. No mastoid effusion. IMPRESSION: 1. Head CT negative for acute intracranial abnormality 2. Underlying mass within the right cerebellar pontine angle concerning for primary brain neoplasm. Postcontrast MRI of the brain recommended for further evaluation.
--- NOTE | 2023-02-08 22:21 | CT ---
EXAM: CT Angiography Head With Intravenous Contrast CLINICAL HISTORY: ITS.REASON CT Reason: Neuro deficit, acute, stroke suspected TECHNIQUE: Axial computed tomographic angiography images of the head with intravenous contrast. CTDI is 8.2 mGy and DLP is 358.9 mGy-cm. This CT exam was performed using one or more of the following dose reduction techniques: automated exposure control, adjustment of the mA and/or kV according to patient size, and/or use of iterative reconstruction technique. MIP reconstructed images were created and reviewed. COMPARISON: No relevant prior studies available. FINDINGS: Redemonstration of a partially calcified right cerebellar pontine angle mass which does not enhance on the postcontrast images. Right internal carotid artery: No acute findings. Intracranial segment is patent with no significant stenosis. No aneurysm. Right anterior cerebral artery: Unremarkable. No occlusion or significant stenosis. No aneurysm. Right middle cerebral artery: Unremarkable. No occlusion or significant stenosis. No aneurysm. Right posterior cerebral artery: Unremarkable. No occlusion or significant stenosis. No aneurysm. Right vertebral artery: Unremarkable as visualized. Left internal carotid artery: No acute findings. Intracranial segment is patent with no significant stenosis. No aneurysm. Left anterior cerebral artery: Unremarkable. No occlusion or significant stenosis. No aneurysm. Left middle cerebral artery: Unremarkable. No occlusion or significant stenosis. No aneurysm. Left posterior cerebral artery: Unremarkable. No occlusion or significant stenosis. No aneurysm. Left vertebral artery: Unremarkable as visualized. Basilar artery: Unremarkable. No occlusion or significant stenosis. No aneurysm. IMPRESSION: CT angiogram of the head negative for acute vascular abnormality Brain with contrast Stable appearance to partially calcified right cerebellar pontine angle mass. Again postcontrast MRI of the brain would be helpful in further evaluation. EXAM: CT Angiography Neck With Intravenous Contrast CLINICAL HISTORY: ITS.REASON CT Reason: Neuro deficit, acute, stroke suspected TECHNIQUE: Routine carotid CT angiography protocol was performed with intravenous contrast. NASCET criteria using the distal ICAs for comparison were used for evaluation of stenoses. CTDI is 8.2 mGy and DLP is 358.9 mGy-cm. This CT exam was performed using one or more of the following dose reduction techniques: automated exposure control, adjustment of the mA and/or kV according to patient size, and/or use of iterative reconstruction technique. MIP reconstructed images were created and reviewed. COMPARISON: None. FINDINGS: VASCULATURE: Right common carotid artery: Unremarkable. No occlusion or significant stenosis. No dissection. Right internal carotid artery: Unremarkable. Extracranial segment is patent with no occlusion or significant stenosis. No dissection. Right external carotid artery: Unremarkable. No occlusion. Right vertebral artery: Unremarkable. No occlusion or significant stenosis. No dissection. Left common carotid artery: Unremarkable. No occlusion or significant stenosis. No dissection. Left internal carotid artery: Unremarkable. Extracranial segment is patent with no occlusion or significant stenosis. No dissection. Left external carotid artery: Unremarkable. No occlusion. Left vertebral artery: Unremarkable. No occlusion or significant stenosis. No dissection. NECK: Bones/joints: Unremarkable. No acute fracture. Soft tissues: Unremarkable. Lung apices: Clear. CAROTID STENOSIS REFERENCE USING NASCET CRITERIA: % ICA stenosis = (1 - narrowest ICA diameter/diameter of distal cervical ICA) x 100. Mild - <50% stenosis. Moderate - 50-69% stenosis. Severe - 70-94% stenosis. Near occlusion - 95-99% stenosis. Occluded - 100% stenosis. IMPRESSION: Negative CTA neck.
[2023-02-08 22:31] LABS: ALT 67 U/L (4-34); AST 41 U/L (14-36); African American GFR (CKD) >90 (>60 ml/min/1.73 sqM); Albumin 4.9 g/dL (3.5-5.0); Alcohol <10 mg/dL; Alkaline Phosphatase 107 U/L (38-126); Anion Gap 15 mmol/L; Blood Urea Nitrogen 11 mg/dL (7-17); Calcium 9.9 mg/dL (8.4-10.2); Carbon Dioxide 24 mmol/L (22-30); Chloride 99 mmol/L (98-107); Creatine Kinase 197 U/L (30-135); Glucose 86 mg/dL (74-99); Non-African American GFR(CKD) >90 (>60 ml/min/1.73 sqM); Potassium 4.2 mmol/L (3.5-5.1); Sodium 138 mmol/L (137-145); Total Bilirubin 0.7 mg/dL (0.2-1.3); Total Protein 8.2 g/dL (6.3-8.2)
[2023-02-08 22:33] LABS: Amorphous Sediment,Urine Rare /hpf; Appearance,Urine Cloudy (Clear); Bacteria,Urine Occasional /hpf; Bilirubin,Urine Negative (Negative); Blood,Urine Negative (Negative); Color,Urine Colorless; Glucose,Urine (UA) Negative (Negative); Ketones,Urine Negative (Negative); Leukocyte Esterase,Urine Negative (Negative); Mucus,Urine Rare /hpf; Nitrite,Urine Negative (Negative); PH, Urine 6.5 (5.0-8.0); Protein,Urine Negative (Negative); RBC,Urine 1 /hpf (0-5); Specific Gravity,Urine 1.001 (1.001-1.035); Squamous Epithelial Cell,Urine 9 /hpf (0-4); Urobilinogen,Urine <2.0 mg/dL (<2.0); WBC,Urine 4 /hpf (0-5)
[2023-02-08 22:42] LABS: INR 0.9 (<1.2); Partial Thromboplastin Time 26.8 sec (22.0-30.0); Prothrombin Time 10.2 sec (10.0-12.5)
[2023-02-08 23:11] LABS: Amphetamine Screen,Urine Detected (NotDetected); Barbiturate Screen,Urine Not Detected (NotDetected); Benzodiazepines Screen,Urine Not Detected (NotDetected); Cocaine Screen,Urine Detected (NotDetected); Methadone Screen, Urine Not Detected (NotDetected); Opiate Screen,Urine Not Detected (NotDetected); Oxycodone Screen, Urine Not Detected (NotDetected); Phencyclidine Screen,Urine Not Detected (NotDetected); Tricyclic Antidepressant,Urine Not Detected (NotDetected); Urn Cannabinoid Scrn Not Detected (NotDetected)
--- NOTE | 2023-02-08 23:29 | XR ---
EXAM: XR Chest, 2 Views CLINICAL HISTORY: ITS.REASON XR Reason: altered mental status TECHNIQUE: Frontal and lateral views of the chest. COMPARISON: FINDINGS: Lungs: Unremarkable. No consolidation. Pleural space: Unremarkable. No pneumothorax. Heart: Unremarkable. No cardiomegaly. Mediastinum: Unremarkable. Normal mediastinal contour. Bones/joints: Unremarkable. No acute fracture. IMPRESSION: Normal chest x-rays.
[2023-02-09 03:24] VITALS: BP 132/88; PULSE 96; TEMP 98.7
== END 2023-02-09 01:15 | disposition other institution (70) ==
LOC: EC 21:13
DX: C71.9 Malignant neoplasm of brain, unspecified (principal); R00.0 Tachycardia, unspecified; J45.909 Unspecified asthma, uncomplicated; F17.290 Nicotine dependence, other tobacco product, uncomplicated; Z79.899 Other long term (current) drug therapy; Z86.59 Personal history of other mental and behavioral disorders; Z88.2 Allergy status to sulfonamides; Z88.1 Allergy status to other antibiotic agents; Z88.8 Allergy status to other drugs, medicaments and biological substances
CPT/HCPCS: 99291; 96374; 96361; 36415; 93005; 80053; 82550; 84484; 85025; 85610; 85730; 81001; 80306; 71046; 70496; 70450; 70498; G0480; J2060; Q9967; 80320

== ENCOUNTER 2023-02-24 13:14 | Emergency (ER) | payer OTHER ==
[2023-02-24] MEDS ORDERED: SODIUM CHLORIDE 0.9% 1,000 ML IV STA (13:56)
[2023-02-24] MEDS ORDERED: MORPHINE SULFATE 4 MG/ML SYRINGE IVP STA (13:56)
[2023-02-24] MEDS ORDERED: PROCHLORPERAZINE INJ 10 MG/2 ML VIAL IVP STA (13:56)
--- NOTE | 2023-02-24 13:56 | ED ---
Recheck HPI - General Chief Complaint: Headache Stated Complaint: headache Time Seen by Provider: 02/24/23 13:38 Source: patient, RN notes reviewed, old records reviewed, Caregiver Mode of arrival: ambulatory Limitations: no limitations - History of Present Illness Initial Comments: This is a 32-year-old female presenting under care of her mom, patient comes in for evaluation of headache,. Recent medical history obtained from chart as well as prior transfer records, patient was transferred outside facility where she was treated at length the diagnosis of brain lesions versus new diagnosis of impending seizures versus CVA and stroke and altered mental status. Patient states he is just coming off steroids currently and states she's been feeling unwell with that change. She just was at work today and not feeling well Returns Today for: persistent/worsening pain related to initial visit Symptoms Since Prior Visit: worsening pain Associated Symptoms: nausea Treatments Prior to Arrival: Given Pain Meds on - Related Data Home Medications Medication Instructions Recorded Confirmed Albuterol Sulfate [Ventolin HFA] 1 - 2 puff INHALATION RT-Q6H PRN 12/21/18 02/24/23 Dextroamphetamine/Amphetamine 30 mg PO BID 02/08/23 02/24/23 [Adderall] Clotrimazole/Betameth Cream 1 applic TOPICAL BID 02/24/23 02/24/23 [Lotrisone] Ibuprofen [Motrin] 600 mg PO Q6HR PRN 02/24/23 02/24/23 dexAMETHasone [Decadron] 2 mg PO TID@1000,1800,0000 02/24/23 02/24/23 diazePAM [Diazepam] 2 mg PO BID 02/24/23 02/24/23 Allergies Allergy/AdvReac Type Severity Reaction Status Date / Time methylphenidate HCl Allergy Mild Unknown Verified 02/24/23 14:24 [From Metadate CD] cephalexin [From Keflex] Allergy Unknown Rash/Hives Verified 02/24/23 14:24 trimethoprim [From Bactrim] Allergy Unknown Rash/Hives Verified 02/24/23 14:24 azithromycin Allergy swelling Verified 02/24/23 14:24 of mouth ciprofloxacin [From Cipro] Allergy Rash/Hives Verified 02/24/23 14:24 sulfamethoxazole Allergy Rash/Hives Verified 02/24/23 14:24 [From Bactrim] Review of Systems ROS Statement: Those systems with pertinent positive or pertinent negative responses have been documented in the HPI. ROS Other: All systems not noted in ROS Statement are negative. Past Medical History Past Medical History: Asthma Additional Past Medical History / Comment(s): hypoglycemia, elevated liver enzymes, brain lesions History of Any Multi-Drug Resistant Organisms: None Reported Past Surgical History: Tonsillectomy Additional Past Surgical History / Comment(s): oral surgery Past Anesthesia/Blood Transfusion Reactions: No Reported Reaction Past Psychological History: ADD/ADHD, Anxiety, Bipolar, Depression Smoking Status: Vaper Past Alcohol Use History: Occasional Past Drug Use History: None Reported, Marijuana - Past Family History Mother Family Medical History: Asthma, Thyroid Disorder General Exam Limitations: no limitations General appearance: alert, in no apparent distress Head exam: Present: atraumatic, normocephalic, normal inspection Eye exam: Present: normal appearance, PERRL, EOMI. Absent: scleral icterus, conjunctival injection, periorbital swelling ENT exam: Present: normal exam, mucous membranes moist Neck exam: Present: normal inspection. Absent: tenderness, meningismus, lymphadenopathy Respiratory exam: Present: normal lung sounds bilaterally. Absent: respiratory distress, wheezes, rales, rhonchi, stridor Cardiovascular Exam: Present: regular rate, normal rhythm, normal heart sounds. Absent: systolic murmur, diastolic murmur, rubs, gallop, clicks GI/Abdominal exam: Present: soft, normal bowel sounds. Absent: distended, tenderness, guarding, rebound, rigid Extremities exam: Present: normal inspection, full ROM, normal capillary refill. Absent: tenderness, pedal edema, joint swelling, calf tenderness Back exam: Present: normal inspection Neurological exam: Present: alert, oriented X3, CN II-XII intact Psychiatric exam: Present: normal affect, normal mood Skin exam: Present: warm, dry, intact, normal color. Absent: rash Course Vital Signs 02/24/23 02/24/23 02/24/23 13:15 14:31 15:44 Temperature 98.4 F 98.7 F Pulse Rate 117 H 105 H 82 Respiratory 20 18 18 Rate Blood Pressure 132/70 120/103 111/55 O2 Sat by Pulse 98 98 98 Oximetry - Reevaluation(s) Reevaluation #1: Medical record is reviewed Reevaluation #2: Patient symptoms are improving here in the ER Reevaluation #3: Patient informed results and questions answered Reevaluation #4: 02/24/23 15:01 Was pt. sent in by a medical professional or institution (, NEENA, DIE CLEANER, urgent care, hospital, or assisted...) When possible be specific @ -no Did you speak to anyone other than the patient for history (EMS, parent, family, police, friend...)? What history was obtained from this source @ -no Did you review nursing and triage notes (agree or disagree)? Why? @ -agree Are old charts reviewed (outside hosp., previous admission, EMS record, old EKG, old radiological studies, urgent care reports/EKG's, assisted records)? R eport findings @ -yes Differential Diagnosis (chest pain, altered mental status, abdominal pain women, abdominal pain men, vaginal bleeding, weakness, fever, dyspnea, syncope, headache, dizziness, GI bleed, back pain, seizure, CVA, palpatations, mental health, musculoskeletal)? @ -prior EKG interpreted by me (3pts min.). @ -no X-rays interpreted by me (1pt min.). @ -no CT interpreted by me (1pt min.). @ -yes negative for acute disease U/S interpreted by me (1pt. min.). @ -no What testing was considered but not performed or refused? (CT, X-rays, U/S, labs)? Why? @ -none What meds were considered but not given or refused? Why? @ -none Did you discuss the management of the patient with other professionals (professionals i.e. , NEENA, DIE CLEANER, lab, RT, psych nurse, social welfare clerk, intranet support, teacher, emergency response officer, case folder)? Give summary @ -no Was smoking cessation discussed for >3mins.? @ -no Was critical care preformed (if so, how long)? @ -no Were there social determinants of health that impacted care today? How? (Homelessness, low income, unemployed, alcoholism, drug addiction, transportation, low edu. Level, literacy, decrease access to med. care, custodial, rehab)? @ -none Was there de-escalation of care discussed even if they declined (Discuss DNR or withdrawal of care, Hospice)? DNR status @ -no What co-morbidities impacted this encounter? (DM, HTN, Smoking, COPD, CAD, Cancer, CVA, ARF, Chemo, Hep., AIDS, mental health diagnosis, sleep apnea, morbid obesity)? @ -none Was patient admitted / discharged? Hospital course, mention meds given and route, prescriptions, significant lab abnormalities, going to OR and other pertinent info. @ - 32 female to the emergency department for evaluation of headache and head pain. Patient is concern for change in computed tomography scan with recent hospital admission and evaluation. Patient states her symptoms are improved. Does not want further hospital evaluation or to be sent back to treating hospital, patient prefers discharged home Discharged Undiagnosed new problem with uncertain prognosis? @ -no Drug Therapy requiring intensive monitoring for toxicity (Heparin, Nitro, Insulin, Cardizem)? @ -no Were any procedures done? @ -no Diagnosis/symptom? @ -Headache, recurrent headache recent brain lesion found Acute, or Chronic, or Acute on Chronic? @ -Acute Uncomplicated (without systemic symptoms) or Complicated (systemic symptoms)? @ -Complicated Side effects of treatment? @ -no Exacerbation, Progression, or Severe Exacerbation? @ -exacerbation Poses a threat to life or bodily function? How? (Chest pain, USA, DC, pneumonia, PE, COPD, DKA, ARF, appy, cholecystitis, CVA, Diverticulitis, Homicidal, Suicidal, threat to staff... and all critical care pts) @ -yes with significant recent history of brain issue with tumor Reevaluation #5: Differential Headache: Migraine, tension, cluster, carbon monoxide, central venous thrombosis, pension karma temporal arteritis, acute closure glaucoma, intercranial hemorrhage, mastoiditis, sinusitis, head injury, this is not meant to be an all-inclusive list. Medical Decision Making - Medical Decision Making 32 female to the emergency department for evaluation of headache and head pain. Patient is concern for change in computed tomography scan with recent hospital admission and evaluation. Patient states her symptoms are improved. Does not want further hospital evaluation or to be sent back to treating hospital, patient prefers discharged home - Lab Data Result diagrams: 02/24/23 14:17 02/24/23 14:17 Lab Results 02/24/23 02/24/23 02/24/23 Range/Units 14:17 14:17 14:17 WBC 16.9 H (3.8-10.6) k/uL RBC 4.71 (3.80-5.40) m/uL Hgb 13.3 (11.4-16.0) gm/dL Hct 41.0 (34.0-46.0) % MCV 87.0 (80.0-100.0) fL MCH 28.3 (25.0-35.0) pg MCHC 32.5 (31.0-37.0) g/dL RDW 14.2 (11.5-15.5) % Plt Count 293 (150-450) k/uL MPV 9.7 Neutrophils % 87 % Lymphocytes % 7 % Monocytes % 5 % Eosinophils % 0 % Basophils % 0 % Neutrophils # 14.6 H (1.3-7.7) k/uL Lymphocytes # 1.2 (1.0-4.8) k/uL Monocytes # 0.8 (0-1.0) k/uL Eosinophils # 0.0 (0-0.7) k/uL Basophils # 0.1 (0-0.2) k/uL PT 9.6 L (10.0-12.5) sec INR 0.8 (<1.2) APTT 22.9 (22.0-30.0) sec Sodium (137-145) mmol/L Potassium (3.5-5.1) mmol/L Chloride (98-107) mmol/L Carbon Dioxide (22-30) mmol/L Anion Gap mmol/L BUN (7-17) mg/dL Creatinine (0.52-1.04) mg/dL Est GFR (CKD-EPI)AfAm (>60 ml/min/1.73 sqM) Est GFR (CKD-EPI)NonAf (>60 ml/min/1.73 sqM) Glucose (74-99) mg/dL Calcium (8.4-10.2) mg/dL Phosphorus (2.5-4.5) mg/dL Magnesium (1.6-2.3) mg/dL Total Bilirubin (0.2-1.3) mg/dL AST (14-36) U/L ALT (4-34) U/L Alkaline Phosphatase (38-126) U/L Troponin I (0.000-0.034) ng/mL Total Protein (6.3-8.2) g/dL Albumin (3.5-5.0) g/dL Urine Color Colorless Urine Appearance Clear (Clear) Urine pH 7.5 (5.0-8.0) Ur Specific [place] 1.008 (1.001-1.035) Urine Protein Negative (Negative) Urine Glucose (UA) Negative (Negative) Urine Ketones Negative (Negative) Urine Blood Moderate H (Negative) Urine Nitrite Negative (Negative) Urine Bilirubin Negative (Negative) Urine Urobilinogen <2.0 (<2.0) mg/dL Ur Leukocyte Esterase Trace H (Negative) Urine RBC <1 (0-5) /hpf Ur Squamous Epith Cells <1 (0-4) /hpf 02/24/23 02/24/23 Range/Units 14:17 14:17 WBC (3.8-10.6) k/uL RBC (3.80-5.40) m/uL Hgb (11.4-16.0) gm/dL Hct (34.0-46.0) % MCV (80.0-100.0) fL MCH (25.0-35.0) pg MCHC (31.0-37.0) g/dL RDW (11.5-15.5) % Plt Count (150-450) k/uL MPV Neutrophils % % Lymphocytes % % Monocytes % % Eosinophils % % Basophils % % Neutrophils # (1.3-7.7) k/uL Lymphocytes # (1.0-4.8) k/uL Monocytes # (0-1.0) k/uL Eosinophils # (0-0.7) k/uL Basophils # (0-0.2) k/uL PT (10.0-12.5) sec INR (<1.2) APTT (22.0-30.0) sec Sodium 136 L (137-145) mmol/L Potassium 4.3 (3.5-5.1) mmol/L Chloride 97 L (98-107) mmol/L Carbon Dioxide 26 (22-30) mmol/L Anion Gap 13 mmol/L BUN 21 H (7-17) mg/dL Creatinine 0.63 (0.52-1.04) mg/dL Est GFR (CKD-EPI)AfAm >90 (>60 ml/min/1.73 sqM) Est GFR (CKD-EPI)NonAf >90 (>60 ml/min/1.73 sqM) Glucose 101 H (74-99) mg/dL Calcium 9.6 (8.4-10.2) mg/dL Phosphorus 3.7 (2.5-4.5) mg/dL Magnesium 2.0 (1.6-2.3) mg/dL Total Bilirubin 0.6 (0.2-1.3) mg/dL AST 116 H (14-36) U/L ALT 566 H (4-34) U/L Alkaline Phosphatase 81 (38-126) U/L Troponin I <0.012 (0.000-0.034) ng/mL Total Protein 7.5 (6.3-8.2) g/dL Albumin 4.5 (3.5-5.0) g/dL Urine Color Urine Appearance (Clear) Urine pH (5.0-8.0) Ur Specific [place] (1.001-1.035) Urine Protein (Negative) Urine Glucose (UA) (Negative) Urine Ketones (Negative) Urine Blood (Negative) Urine Nitrite (Negative) Urine Bilirubin (Negative) Urine Urobilinogen (<2.0) mg/dL Ur Leukocyte Esterase (Negative) Urine RBC (0-5) /hpf Ur Squamous Epith Cells (0-4) /hpf - Radiology Data Radiology results: report reviewed (CT brain is negative for acute disease), image reviewed Disposition Clinical Impression: Headache Disposition: HOME SELF-CARE Condition: Good Instructions (If sedation given, give patient instructions): Acute Headache (ED) Is patient prescribed a controlled substance at d/c from ED?: No Referrals: Andre Briggs MD [Primary Care Provider] - 1-2 days Time of Disposition: 15:10
[2023-02-24 14:33] LABS: Basophils # (A) 0.1 k/uL (0-0.2); Basophils % (A) 0 %; Eosinophils % (A) 0 %; HGB 13.3 gm/dL (11.4-16.0); Lymphocytes # (A) 1.2 k/uL (1.0-4.8); Lymphocytes % (A) 7 %; MCH 28.3 pg (25.0-35.0); MCHC 32.5 g/dL (31.0-37.0); Mean Platelet Volume 9.7; Monocytes # (A) 0.8 k/uL (0-1.0); Monocytes % (A) 5 %; Neutrophils # (A) 14.6 k/uL (1.3-7.7); Neutrophils % (A) 87 %; Platelet Count 293 k/uL (150-450); RBC 4.71 m/uL (3.80-5.40); RDW 14.2 % (11.5-15.5); WBC 16.9 k/uL (3.8-10.6)
[2023-02-24 14:37] VITALS: RESP 18
--- NOTE | 2023-02-24 14:44 | CT ---
EXAMINATION TYPE: CT brain wo con DATE OF EXAM: 02/24/2023 COMPARISON: 02/08/2023 HISTORY: headache CT DLP: 1035.1 mGycm. Automated Exposure Control for Dose Reduction was Utilized. TECHNIQUE: CT scan of the head is performed without contrast. FINDINGS: There has been no interval change in the ill-defined area of hypodensity with scattered dense calcifi cations involving the right cerebellar hemisphere, vermis and a portion of the left cerebellar hemisp here. The finding is highly suspicious for primary neoplasm. MRI of the brain with and without contra st is recommended for further evaluation. The ventricles, basal cisterns and sulci over the convexiti es are within normal limits and there is no shift of the midline structures. There is no acute intra or extra-axial hemorrhage. The intraorbital contents appear normal and symmetric. Visualized paranasal sinuses and mastoid air cells are well aerated. IMPRESSION: No change in the mass with calcification in the cerebellum. Findings highly suspicious for primary ne oplasm and MRI of the brain with and without contrast is recommended for further evaluation. There is no acute bleed, hydrocephalus or shift of the midline structures.
[2023-02-24 14:51] LABS: ALT 566 U/L (4-34); AST 116 U/L (14-36); African American GFR (CKD) >90 (>60 ml/min/1.73 sqM); Albumin 4.5 g/dL (3.5-5.0); Alkaline Phosphatase 81 U/L (38-126); Anion Gap 13 mmol/L; Blood Urea Nitrogen 21 mg/dL (7-17); Calcium 9.6 mg/dL (8.4-10.2); Carbon Dioxide 26 mmol/L (22-30); Chloride 97 mmol/L (98-107); Glucose 101 mg/dL (74-99); Non-African American GFR(CKD) >90 (>60 ml/min/1.73 sqM); Phosphorus 3.7 mg/dL (2.5-4.5); Sodium 136 mmol/L (137-145); Total Bilirubin 0.6 mg/dL (0.2-1.3); Total Protein 7.5 g/dL (6.3-8.2)
[2023-02-24 14:55] LABS: INR 0.8 (<1.2); Partial Thromboplastin Time 22.9 sec (22.0-30.0); Prothrombin Time 9.6 sec (10.0-12.5)
[2023-02-24 15:03] LABS: Potassium 4.3 mmol/L (3.5-5.1)
[2023-02-24 15:12] LABS: Appearance,Urine Clear (Clear); Bilirubin,Urine Negative (Negative); Blood,Urine Moderate (Negative); Color,Urine Colorless; Glucose,Urine (UA) Negative (Negative); Ketones,Urine Negative (Negative); Leukocyte Esterase,Urine Trace (Negative); Nitrite,Urine Negative (Negative); PH, Urine 7.5 (5.0-8.0); Protein,Urine Negative (Negative); RBC,Urine <1 /hpf (0-5); Specific Gravity,Urine 1.008 (1.001-1.035); Squamous Epithelial Cell,Urine <1 /hpf (0-4); Urobilinogen,Urine <2.0 mg/dL (<2.0)
[2023-02-24] MEDS ORDERED: KETOROLAC 15 MG/ML 1 ML VIAL IVP STA (15:15)
[2023-02-24] MEDS ORDERED: diphenhydrAMINE 50 MG/ML 1 ML VIAL IVP STA (15:15)
[2023-02-24 16:06] VITALS: BP 111/55; PULSE 82; TEMP 98.7
== END 2023-02-24 16:35 | disposition home or self-care (01) ==
LOC: EC 13:14
DX: R51.9 Headache, unspecified (principal); J45.909 Unspecified asthma, uncomplicated; F90.9 Attention-deficit hyperactivity disorder, unspecified type; F41.9 Anxiety disorder, unspecified; F31.9 Bipolar disorder, unspecified; F17.290 Nicotine dependence, other tobacco product, uncomplicated; F12.90 Cannabis use, unspecified, uncomplicated; Z79.899 Other long term (current) drug therapy; Z88.2 Allergy status to sulfonamides; Z88.1 Allergy status to other antibiotic agents; Z88.8 Allergy status to other drugs, medicaments and biological substances
CPT/HCPCS: 36415; 80053; 83735; 84100; 84484; 85025; 85610; 85730; 81001; 70450; 99285; 96374; 96375 ×2; 96361; J2270; J1200; J0780

== ENCOUNTER 2023-03-13 02:02 | Emergency (ER) | payer OTHER ==
[2023-03-13 02:12] VITALS: BP 142/87; RESP 20; TEMP 97.8
[2023-03-13] MEDS ORDERED: SODIUM CHLORIDE 0.9% 1,000 ML IV ONE (02:20)
--- NOTE | 2023-03-13 02:27 | ED ---
General Adult HPI - General Chief complaint: Seizure Stated complaint: Seizure,SOB Time Seen by Provider: 03/13/23 02:11 Source: patient, RN notes reviewed, old records reviewed Mode of arrival: wheelchair Limitations: no limitations - History of Present Illness Initial comments: 32-year-old female presenting with multiple complaints including evaluation of tooth abscess. Patient states that she had a draining abscess in her right upper molar earlier today. She has multiple additional complaints including feeling like she may have a seizure. 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 She had her recent CT imaging which showed calcified intracranial mass and was transferred to [facility] where she received evaluation. She is currently awaiting second evaluation at [facility]. She reports cough, congestion in addition. - Related Data Home Medications Medication Instructions Recorded Confirmed Albuterol Sulfate [Ventolin HFA] 1 - 2 puff INHALATION RT-Q6H PRN 12/21/18 02/24/23 Dextroamphetamine/Amphetamine 30 mg PO BID 02/08/23 02/24/23 [Adderall] Clotrimazole/Betameth Cream 1 applic TOPICAL BID 02/24/23 02/24/23 [Lotrisone] Ibuprofen [Motrin] 600 mg PO Q6HR PRN 02/24/23 02/24/23 dexAMETHasone [Decadron] 2 mg PO TID@1000,1800,0000 02/24/23 02/24/23 diazePAM [Diazepam] 2 mg PO BID 02/24/23 02/24/23 Previous Rx's Medication Instructions Recorded Amoxic-Pot Clav 875-125Mg 1 tab PO Q12HR 10 Days #20 tab 03/13/23 [Augmentin 875-125] Allergies Allergy/AdvReac Type Severity Reaction Status Date / Time methylphenidate HCl Allergy Mild Unknown Verified 03/13/23 02:10 [From Metadate CD] cephalexin [From Keflex] Allergy Unknown Rash/Hives Verified 03/13/23 02:10 trimethoprim [From Bactrim] Allergy Unknown Rash/Hives Verified 03/13/23 02:10 azithromycin Allergy swelling Verified 03/13/23 02:10 of mouth ciprofloxacin [From Cipro] Allergy Rash/Hives Verified 03/13/23 02:10 ketorolac [From Toradol] Allergy Unknown Verified 03/13/23 03:04 sulfamethoxazole Allergy Rash/Hives Verified 03/13/23 02:10 [From Bactrim] Review of Systems ROS Statement: Those systems with pertinent positive or pertinent negative responses have been documented in the HPI. ROS Other: All systems not noted in ROS Statement are negative. Past Medical History Past Medical History: Asthma Additional Past Medical History / Comment(s): hypoglycemia, elevated liver enzymes, brain lesions History of Any Multi-Drug Resistant Organisms: None Reported Past Surgical History: Tonsillectomy Additional Past Surgical History / Comment(s): oral surgery Past Anesthesia/Blood Transfusion Reactions: No Reported Reaction Past Psychological History: ADD/ADHD, Anxiety, Bipolar, Depression Smoking Status: Vaper Past Alcohol Use History: Occasional Past Drug Use History: Marijuana - Past Family History Mother Family Medical History: Asthma, Thyroid Disorder General Exam Limitations: no limitations General appearance: alert, in no apparent distress Head exam: Present: atraumatic, normocephalic Eye exam: Present: normal appearance, PERRL ENT exam: Present: other (poor Dentition, apical abscess right upper molar) Respiratory exam: Present: normal lung sounds bilaterally. Absent: respiratory distress, wheezes Cardiovascular Exam: Present: normal rhythm, tachycardia GI/Abdominal exam: Present: soft. Absent: distended, tenderness Neurological exam: Present: alert, oriented X3, CN II-XII intact. Absent: motor sensory deficit Skin exam: Present: warm, dry, intact. Absent: cyanosis, diaphoretic Course Vital Signs 03/13/23 03/13/23 03/13/23 02:07 02:46 03:41 Temperature 97.8 F Pulse Rate 123 H 102 H 94 Respiratory 20 20 Rate Blood Pressure 142/87 O2 Sat by Pulse 99 98 Oximetry Medical Decision Making - Medical Decision Making Was pt. sent in by a medical professional or institution (, PA, HOTEL OR MOTEL MANAGER, urgent care, hospital, or longterm...) When possible be specific @ -[No] Did you speak to anyone other than the patient for history (EMS, parent, family, police, friend...)? What history was obtained from this source @ -[No] Did you review nursing and triage notes (agree or disagree)? Why? @ -[I reviewed and agree with nursing and triage notes] Were old charts reviewed (outside hosp., previous admission, EMS record, old EKG, old radiological studies, urgent care reports/EKG's, longterm records)? Report findings @ -[No old charts were reviewed] Differential Diagnosis (chest pain, altered mental status, abdominal pain women, abdominal pain men, vaginal bleeding, weakness, fever, dyspnea, syncope, headache, dizziness, GI bleed, back pain, seizure, CVA, palpatations, mental health, musculoskeletal)? @ -Viral infection, headache associated EKG interpreted by me (3pts min.). @ -Sinus tachycardia rate of 118, ND interval 128, QRS duration 85, QTC 373, no ST segment elevation, similar QRS morphology compared to prior. X-rays interpreted by me (1pt min.). @ -[None done] CT interpreted by me (1pt min.). @ -[CT brain, showing a stable calcified mass without acute change. U/S interpreted by me (1pt. min.). @ -[None done] What testing was considered but not performed or refused? (CT, X-rays, U/S, l abs)? Why? @ -[None] What meds were considered but not given or refused? Why? @ -[None] Did you discuss the management of the patient with other professionals (professionals i.e. , PA, HOTEL OR MOTEL MANAGER, lab, RT, psych nurse, sexual assault social worker, yarn spinner, teacher, seismology technical officer, manager case management)? Give summary @ -[No] Was smoking cessation discussed for >3mins.? @ -[No] Was critical care preformed (if so, how long)? @ -[No] Were there social determinants of health that impacted care today? How? (Homelessness, low income, unemployed, alcoholism, drug addiction, transportation, low edu. Level, literacy, decrease access to med. care, fci, rehab)? @ -[No] Was there de-escalation of care discussed even if they declined (Discuss DNR or withdrawal of care, Hospice)? DNR status @ -[No] What co-morbidities impacted this encounter? (DM, HTN, Smoking, COPD, CAD, Cancer, CVA, ARF, Chemo, Hep., AIDS, mental health diagnosis, sleep apnea, morbid obesity)? @ -[None] Was patient admitted / discharged? Hospital course, mention meds given and route, prescriptions, significant lab abnormalities, going to OR and other p ertinent info. @ Patient presenting with multiple complaints including toothache, coughing congestion, headache. Patient has known brain lesion which is currently being evaluated at outside hospital. The patient states she does have good follow-up regarding this. She is complaining of headache and I did repeat a CAT scan which was stable without acute change. Patient test positive for RSV which is the cause of her respiratory complaints. Regarding her toothache she had a draining apical abscess. Will be placed on antibiotics at this time and should follow-up with her dentist. Undiagnosed new problem with uncertain prognosis? @ -[No] Drug Therapy requiring intensive monitoring for toxicity (Heparin, Nitro, Ins ulin, Cardizem)? @ -[No] Were any procedures done? @ -[No] Diagnosis/symptom? @ -[RSV Acute, or Chronic, or Acute on Chronic? @ Acute Uncomplicated (without systemic symptoms) or Complicated (systemic symptoms)? @ -[Complicated Side effects of treatment? @ -[No] Exacerbation, Progression, or Severe Exacerbation? @ -[No] Poses a threat to life or bodily function? How? (Chest pain, USA, OR, pneumonia, PE, COPD, DKA, ARF, appy, cholecystitis, CVA, Diverticulitis, Homicidal, Suicidal, threat to staff... and all critical care pts) @ Low risk at this time - Lab Data Result diagrams: 03/13/23 02:27 03/13/23 02:27 Lab Results 03/13/23 03/13/23 03/13/23 Range/Units 02:27 02:27 02:27 WBC 13.7 H (3.8-10.6) k/uL RBC 4.36 (3.80-5.40) m/uL Hgb 12.6 (11.4-16.0) gm/dL Hct 38.6 (34.0-46.0) % MCV 88.7 (80.0-100.0) fL MCH 28.9 (25.0-35.0) pg MCHC 32.6 (31.0-37.0) g/dL RDW 15.1 (11.5-15.5) % Plt Count 265 (150-450) k/uL MPV 8.1 Neutrophils % 82 % Lymphocytes % 11 % Monocytes % 6 % Eosinophils % 0 % Basophils % 0 % Neutrophils # 11.2 H (1.3-7.7) k/uL Lymphocytes # 1.5 (1.0-4.8) k/uL Monocytes # 0.8 (0-1.0) k/uL Eosinophils # 0.0 (0-0.7) k/uL Basophils # 0.0 (0-0.2) k/uL Sodium 137 (137-145) mmol/L Potassium 3.6 (3.5-5.1) mmol/L Chloride 102 (98-107) mmol/L Carbon Dioxide 23 (22-30) mmol/L Anion Gap 12 mmol/L BUN 18 H (7-17) mg/dL Creatinine 0.76 (0.52-1.04) mg/dL Est GFR (CKD-EPI)AfAm >90 (>60 ml/min/1.73 sqM) Est GFR (CKD-EPI)NonAf >90 (>60 ml/min/1.73 sqM) Glucose 143 H (74-99) mg/dL Plasma Lactic Acid Chip 1.6 (0.7-2.0) mmol/L Calcium 8.5 (8.4-10.2) mg/dL Magnesium 1.8 (1.6-2.3) mg/dL Total Bilirubin 0.4 (0.2-1.3) mg/dL AST 28 (14-36) U/L ALT 112 H (4-34) U/L Alkaline Phosphatase 65 (38-126) U/L Total Protein 6.3 (6.3-8.2) g/dL Albumin 3.8 (3.5-5.0) g/dL Influenza Type A (PCR) (Not Detectd) Influenza Type B (PCR) (Not Detectd) RSV (PCR) (Not Detectd) SARS-CoV-2 (PCR) (Not Detectd) 03/13/23 Range/Units 02:27 WBC (3.8-10.6) k/uL RBC (3.80-5.40) m/uL Hgb (11.4-16.0) gm/dL Hct (34.0-46.0) % MCV (80.0-100.0) fL MCH (25.0-35.0) pg MCHC (31.0-37.0) g/dL RDW (11.5-15.5) % Plt Count (150-450) k/uL MPV Neutrophils % % Lymphocytes % % Monocytes % % Eosinophils % % Basophils % % Neutrophils # (1.3-7.7) k/uL Lymphocytes # (1.0-4.8) k/uL Monocytes # (0-1.0) k/uL Eosinophils # (0-0.7) k/uL Basophils # (0-0.2) k/uL Sodium (137-145) mmol/L Potassium (3.5-5.1) mmol/L Chloride (98-107) mmol/L Carbon Dioxide (22-30) mmol/L Anion Gap mmol/L BUN (7-17) mg/dL Creatinine (0.52-1.04) mg/dL Est GFR (CKD-EPI)AfAm (>60 ml/min/1.73 sqM) Est GFR (CKD-EPI)NonAf (>60 ml/min/1.73 sqM) Glucose (74-99) mg/dL Plasma Lactic Acid Chip (0.7-2.0) mmol/L Calcium (8.4-10.2) mg/dL Magnesium (1.6-2.3) mg/dL Total Bilirubin (0.2-1.3) mg/dL AST (14-36) U/L ALT (4-34) U/L Alkaline Phosphatase (38-126) U/L Total Protein (6.3-8.2) g/dL Albumin (3.5-5.0) g/dL Influenza Type A (PCR) Not Detected (Not Detectd) Influenza Type B (PCR) Not Detected (Not Detectd) RSV (PCR) Detected A (Not Detectd) SARS-CoV-2 (PCR) Not Detected (Not Detectd) Disposition Clinical Impression: RSV (respiratory syncytial virus infection), Brain mass, Toothache Disposition: HOME SELF-CARE Condition: Fair Instructions (If sedation given, give patient instructions): Dental Abscess (ED), Toothache (ED), Respiratory Syncytial Virus (ED) Prescriptions: Amoxic-Pot Clav 875-125Mg [Augmentin 875-125] 1 tab PO Q12HR 10 Days #20 tab Is patient prescribed a controlled substance at d/c from ED?: No Referrals: Andre Briggs MD [Primary Care Provider] - 1-2 days Time of Disposition: 06:09
[2023-03-13 02:42] LABS: Basophils % (A) 0 %; Eosinophils % (A) 0 %; HCT 38.6 % (34.0-46.0); HGB 12.6 gm/dL (11.4-16.0); Lymphocytes # (A) 1.5 k/uL (1.0-4.8); Lymphocytes % (A) 11 %; MCH 28.9 pg (25.0-35.0); MCHC 32.6 g/dL (31.0-37.0); MCV 88.7 fL (80.0-100.0); Mean Platelet Volume 8.1; Monocytes # (A) 0.8 k/uL (0-1.0); Monocytes % (A) 6 %; Neutrophils # (A) 11.2 k/uL (1.3-7.7); Neutrophils % (A) 82 %; Platelet Count 265 k/uL (150-450); RBC 4.36 m/uL (3.80-5.40); RDW 15.1 % (11.5-15.5); WBC 13.7 k/uL (3.8-10.6)
[2023-03-13] MEDS ORDERED: diazePAM 2 MG TAB PO STA (02:46)
[2023-03-13] MEDS ORDERED: KETOROLAC 15 MG/ML 1 ML VIAL IVP STA (02:46)
[2023-03-13 02:55] LABS: ALT 112 U/L (4-34); AST 28 U/L (14-36); African American GFR (CKD) >90 (>60 ml/min/1.73 sqM); Albumin 3.8 g/dL (3.5-5.0); Alkaline Phosphatase 65 U/L (38-126); Anion Gap 12 mmol/L; Blood Urea Nitrogen 18 mg/dL (7-17); Calcium 8.5 mg/dL (8.4-10.2); Carbon Dioxide 23 mmol/L (22-30); Chloride 102 mmol/L (98-107); Glucose 143 mg/dL (74-99); Magnesium 1.8 mg/dL (1.6-2.3); Non-African American GFR(CKD) >90 (>60 ml/min/1.73 sqM); Potassium 3.6 mmol/L (3.5-5.1); Sodium 137 mmol/L (137-145); Total Bilirubin 0.4 mg/dL (0.2-1.3); Total Protein 6.3 g/dL (6.3-8.2)
[2023-03-13] MEDS ORDERED: HYDROmorphone 0.5 MG/0.5 ML SYRINGE IVP STA (03:36)
[2023-03-13 04:00] VITALS: PULSE 94
--- NOTE | 2023-03-13 05:00 | CT ---
EXAM: CT Head Without Intravenous Contrast CLINICAL HISTORY: ITS.REASON CT Reason: PAEZ TECHNIQUE: Axial computed tomography images of the head/brain without intravenous contrast. CTDI is 49.2 mGy and DLP is 1153.4 mGy-cm. This CT exam was performed using one or more of the following dose reduction techniques: automated exposure control, adjustment of the mA and/or kV according to patient size, and/or use of iterative reconstruction technique. COMPARISON: 02/24/2023. FINDINGS: Brain: No hemorrhage. Partially calcified mass again seen in the right cerebellum Ventricles: No hydrocephalus. Bones/joints: Unremarkable. Soft tissues: Unremarkable. Sinuses: No air fluid level. Mastoid air cells: Clear. IMPRESSION: Partially calcified mass again seen in the right cerebellum. No new acute findings.
== END 2023-03-13 06:16 | disposition home or self-care (01) ==
LOC: EC 02:02
DX: K04.7 Periapical abscess without sinus (principal); G93.89 Other specified disorders of brain; B97.4 Respiratory syncytial virus as the cause of diseases classified elsewhere; R00.0 Tachycardia, unspecified; J45.909 Unspecified asthma, uncomplicated; F41.9 Anxiety disorder, unspecified; F90.9 Attention-deficit hyperactivity disorder, unspecified type; F17.290 Nicotine dependence, other tobacco product, uncomplicated; F12.90 Cannabis use, unspecified, uncomplicated; Z20.822 Contact with and (suspected) exposure to COVID-19; Z88.1 Allergy status to other antibiotic agents; Z88.2 Allergy status to sulfonamides; Z88.8 Allergy status to other drugs, medicaments and biological substances
CPT/HCPCS: 99285; 96374; 96375; 96361; 36415; 93005; 80053; 83605; 83735; 85025; 87636; 70450; J1885; J1170

== ENCOUNTER → 2023-06-18 | Outpatient (CLI) | payer OTHER ==
--- NOTE | 2023-06-20 09:21 | MR ---
EXAMINATION TYPE: MR brain wo/w con DATE OF EXAM: 06/18/2023 COMPARISON: 03/13/2023, 02/24/2023 CT brains HISTORY: Brain tumor CONTRAST: Performed utilizing 6.5 mL intravenous Gadavist gadolinium contrast. TECHNIQUE: Multiplanar, multiecho imaging on a 3.0 Salima magnet is performed through the brain. Stud y is performed within 24 hours of arrival to the hospital. The craniovertebral junction is normal. The pituitary is normal. Diffusion-weighted imaging is performed. No abnormal hyperintensity is present to suggest an acute i ntracranial infarct or acute ischemic change. There are several hyperintense areas on T2-weighted sequences and inversion recovery weighted sequenc es within the right cerebellum and to a lesser degree left cerebellum adjacent to the fourth ventricl e. This appears to extend into the vermis. Some hypointense areas are present likely corresponding to the calcification identified on CT examination. Enhancement is not evident. Signal within the bilateral cerebral hemispheres are normal. No suspicious signal abnormality in the supratentorial region is evident. Ventricles and sulci are appropriate for the patient age. Fourth ventricle appears patent. IMPRESSION: 1. Hyperintense T2 and inversion recovery weighted sequence signal within the fourth periventricular region extending from the cerebellar peduncles into the vermis. Low signal areas with some blooming a rtifact corresponding to calcification on CT are present. No enhancement is evident. Findings can be compatible with primary neoplasm. Additional workup recommended
== END | disposition home or self-care (01) ==
LOC: RADMRIMAIN 14:33
PROVIDERS: ATTEND Neurological Surgery
DX: D49.6 Neoplasm of unspecified behavior of brain (principal); G93.89 Other specified disorders of brain
CPT/HCPCS: 70553; A9585

== ENCOUNTER 2024-01-01 22:17 | Emergency (ER) | payer OTHER ==
[2024-01-01 22:29] VITALS: TEMP 97.7
--- NOTE | 2024-01-01 23:08 | ED ---
Skin/Abscess/FB HPI - General Chief complaint: Skin/Abscess/Foreign Body Stated complaint: Right side facial pain/abcess Time Seen by Provider: 01/01/24 22:31 Source: patient, RN notes reviewed Mode of arrival: ambulatory Limitations: no limitations - History of Present Illness Initial comments: 33-year-old female presents emergency department chief complaint of facial wound concern for staph infection. Patient states that she has had in the past. Patient that she has a wound under her right side of her face. She states that there was some pus draining out of it. Patient has a fever chills no difficulty swallowing no difficulty breathing. - Related Data Home Medications Medication Instructions Recorded Confirmed Albuterol Sulfate [Ventolin HFA] 1 - 2 puff INHALATION RT-Q6H PRN 12/21/18 02/24/23 Dextroamphetamine/Amphetamine 30 mg PO BID 02/08/23 02/24/23 [Adderall] Clotrimazole/Betameth Cream 1 applic TOPICAL BID 02/24/23 02/24/23 [Lotrisone] Ibuprofen [Motrin] 600 mg PO Q6HR PRN 02/24/23 02/24/23 dexAMETHasone [Decadron] 2 mg PO TID@1000,1800,0000 02/24/23 02/24/23 diazePAM [Diazepam] 2 mg PO BID 02/24/23 02/24/23 Previous Rx's Medication Instructions Recorded Amoxic-Pot Clav 875-125Mg 1 tab PO Q12HR 10 Days #20 tab 03/13/23 [Augmentin 875-125] clindamycin HCL 300 mg PO QID #40 cap 01/01/24 Allergies Allergy/AdvReac Type Severity Reaction Status Date / Time methylphenidate HCl Allergy Mild Unknown Verified 01/01/24 22:29 [From Metadate CD] cephalexin [From Keflex] Allergy Unknown Rash/Hives Verified 01/01/24 22:29 trimethoprim [From Bactrim] Allergy Unknown Rash/Hives Verified 01/01/24 22:29 azithromycin Allergy swelling Verified 01/01/24 22:29 of mouth ciprofloxacin [From Cipro] Allergy Rash/Hives Verified 01/01/24 22:29 ketorolac [From Toradol] Allergy Unknown Verified 01/01/24 22:29 sulfamethoxazole Allergy Rash/Hives Verified 01/01/24 22:29 [From Bactrim] Review of Systems ROS Statement: Those systems with pertinent positive or pertinent negative responses have been documented in the HPI. ROS Other: All systems not noted in ROS Statement are negative. Past Medical History Past Medical History: Asthma Additional Past Medical History / Comment(s): hypoglycemia, elevated liver enzymes, brain lesions History of Any Multi-Drug Resistant Organisms: None Reported Past Surgical History: Tonsillectomy Additional Past Surgical History / Comment(s): oral surgery Past Anesthesia/Blood Transfusion Reactions: No Reported Reaction Past Psychological History: ADD/ADHD, Anxiety, Bipolar, Depression Smoking Status: Vaper Past Alcohol Use History: Occasional Past Drug Use History: Marijuana - Past Family History Mother Family Medical History: Asthma, Thyroid Disorder General Exam Limitations: no limitations General appearance: alert, in no apparent distress Head exam: Present: atraumatic, normocephalic, normal inspection Eye exam: Present: normal appearance, PERRL, EOMI. Absent: scleral icterus, conjunctival injection, periorbital swelling ENT exam: Present: normal exam, normal oropharynx, mucous membranes moist Neck exam: Present: normal inspection. Absent: tenderness, meningismus, lymphadenopathy Respiratory exam: Present: normal lung sounds bilaterally. Absent: respiratory distress, wheezes, rales, rhonchi, stridor Cardiovascular Exam: Present: regular rate, normal rhythm, normal heart sounds. Absent: systolic murmur, diastolic murmur, rubs, gallop, clicks Skin exam: Present: warm, dry, intact, normal color, other (Right-sided facial under the jawline there is a 1 cm oval open wound). Absent: rash Course Vital Signs 01/01/24 22:25 Temperature 97.7 F Pulse Rate 118 H Respiratory 20 Rate Blood Pressure 142/94 O2 Sat by Pulse 100 Oximetry Medical Decision Making - Medical Decision Making Was pt. sent in by a medical professional or institution (, PA, CPO, urgent ca re, hospital, or [facility]...) When possible be specific @ -No Did you speak to anyone other than the patient for history (EMS, parent, family, police, friend...)? What history was obtained from this source @ -No Did you review nursing and triage notes (agree or disagree)? Why? @ -I reviewed and agree with nursing and triage notes Were old charts reviewed (outside hosp., previous admission, EMS record, old EKG, old radiological studies, urgent care reports/EKG's, [facility] records)? Report findings @ -No old charts were reviewed Differential Diagnosis (chest pain, altered mental status, abdominal pain women, abdominal pain men, vaginal bleeding, weakness, fever, dyspnea, syncope, headache, dizziness, GI bleed, back pain, seizure, CVA, palpatations, mental health, musculoskeletal)? @ -Cellulitis, open wound, acne EKG interpreted by me (3pts min.). @ -[None X-rays interpreted by me (1pt min.). @ -None done CT interpreted by me (1pt min.). @ -None done U/S interpreted by me (1pt. min.). @ -None done What testing was considered but not performed or refused? (CT, X-rays, U/S, labs)? Why? @ -None What meds were considered but not given or refused? Why? @ -None Did you discuss the management of the patient with other professionals (professionals i.e. , PA, CPO, lab, RT, psych nurse, social media campaign manager, mud mill tender, teacher, state highway police officer, lining caser)? Give summary @ -No Was smoking cessation discussed for >3mins.? @ -No Was critical care preformed (if so, how long)? @ -No Were there social determinants of health that impacted care today? How? (Homelessness, low income, unemployed, alcoholism, drug addiction, transportation, low edu. Level, literacy, decrease access to med. care, custodial, rehab)? @ -No Was there de-escalation of care discussed even if they declined (Discuss DNR or withdrawal of care, Hospice)? DNR status @ -No What co-morbidities impacted this encounter? (DM, HTN, Smoking, COPD, CAD, Cancer, CVA, ARF, Chemo, Hep., AIDS, mental health diagnosis, sleep apnea, morbid obesity)? @ -None Was patient admitted / discharged? Hospital course, mention meds given and route, prescriptions, significant lab abnormalities, going to OR and other pertinent info. 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 Undiagnosed new problem with uncertain prognosis? @ -No Drug Therapy requiring intensive monitoring for toxicity (Heparin, Nitro, Insulin, Cardizem)? @ -No Were any procedures done? @ -No Diagnosis/symptom? @ -Facial wound Acute, or Chronic, or Acute on Chronic? @ -Acute Uncomplicated (without systemic symptoms) or Complicated (systemic symptoms)? @ -Uncomplicated Side effects of treatment? @ -No Exacerbation, Progression, or Severe Exacerbation? @ -No Poses a threat to life or bodily function? How? (Chest pain, [place], [place], pneumonia, PE, COPD, DKA, ARF, appy, cholecystitis, CVA, Diverticulitis, Homicidal, Suicidal, threat to staff... and all critical care pts) @ -No Disposition Clinical Impression: Open facial wound Disposition: HOME SELF-CARE Condition: Stable Instructions (If sedation given, give patient instructions): Acute Wound Care (ED) Additional Instructions: Please return to the Emergency Department if symptoms worsen or any other concerns. Prescriptions: clindamycin HCL 300 mg PO QID #40 cap Is patient prescribed a controlled substance at d/c from ED?: No Referrals: Serjio Lee MD [Primary Care Provider] - 1-2 days Time of Disposition: 23:08
[2024-01-01] MEDS: CLINDAMYCIN 150 MG CAP PO STA (23:20)
[2024-01-01 23:24] VITALS: BP 132/87; PULSE 102; RESP 18
== END 2024-01-01 23:24 | disposition home or self-care (01) ==
LOC: EC 22:17
CPT/HCPCS: 99282

== ENCOUNTER 2024-03-22 00:57 | Emergency (ER) | payer OTHER ==
[2024-03-22 01:03] VITALS: TEMP 97.9
--- NOTE | 2024-03-22 01:25 | ED ---
General Adult HPI - General Chief complaint: Upper Respiratory Infection Stated complaint: Possible Covid 1/2 Time Seen by Provider: 03/22/24 01:04 Source: patient Mode of arrival: ambulatory Limitations: no limitations - History of Present Illness Initial comments: 33-year-old female presenting with chief complaint of URI-like symptoms. Patient just returned from [place] where she was exposed to COVID and influenza. She is complaining of cough, congestion, headache, sore throat. No nausea vomiting or abdominal pain. No chest pain or dyspnea. No fever or chills. - Related Data Home Medications Medication Instructions Recorded Confirmed Albuterol Sulfate [Ventolin HFA] 1 - 2 puff INHALATION RT-Q6H PRN 12/21/18 02/24/23 Dextroamphetamine/Amphetamine 30 mg PO BID 02/08/23 02/24/23 [Adderall] Clotrimazole/Betameth Cream 1 applic TOPICAL BID 02/24/23 02/24/23 [Lotrisone] Ibuprofen [Motrin] 600 mg PO Q6HR PRN 02/24/23 02/24/23 dexAMETHasone [Decadron] 2 mg PO TID@1000,1800,0000 02/24/23 02/24/23 diazePAM [Diazepam] 2 mg PO BID 02/24/23 02/24/23 Previous Rx's Medication Instructions Recorded Amoxic-Pot Clav 875-125Mg 1 tab PO Q12HR 10 Days #20 tab 03/13/23 [Augmentin 875-125] clindamycin HCL 300 mg PO QID #40 cap 01/01/24 Albuterol Nebulized [Ventolin 2.5 mg INHALATION Q4H PRN 8 Days 03/22/24 Nebulized] #150 ml predniSONE [Deltasone] 20 mg PO DAILY 4 Days #4 tab 03/22/24 Allergies Allergy/AdvReac Type Severity Reaction Status Date / Time methylphenidate HCl Allergy Mild Unknown Verified 01/01/24 22:29 [From Metadate CD] cephalexin [From Keflex] Allergy Unknown Rash/Hives Verified 01/01/24 22:29 trimethoprim [From Bactrim] Allergy Unknown Rash/Hives Verified 01/01/24 22:29 azithromycin Allergy swelling Verified 01/01/24 22:29 of mouth ciprofloxacin [From Cipro] Allergy Rash/Hives Verified 10/22/24 22:29 ketorolac [From Toradol] Allergy Unknown Verified 01/01/24 22:29 sulfamethoxazole Allergy Rash/Hives Verified 01/01/24 22:29 [From Bactrim] Review of Systems ROS Statement: Those systems with pertinent positive or pertinent negative responses have been documented in the HPI. ROS Other: All systems not noted in ROS Statement are negative. Past Medical History Past Medical History: Asthma Additional Past Medical History / Comment(s): hypoglycemia, elevated liver enzymes, brain lesions History of Any Multi-Drug Resistant Organisms: None Reported Past Surgical History: Tonsillectomy Additional Past Surgical History / Comment(s): oral surgery Past Anesthesia/Blood Transfusion Reactions: No Reported Reaction Past Psychological History: ADD/ADHD, Anxiety, Bipolar, Depression Smoking Status: Vaper Past Alcohol Use History: Occasional Past Drug Use History: Marijuana - Past Family History Mother Family Medical History: Asthma, Thyroid Disorder General Exam Limitations: no limitations General appearance: alert, in no apparent distress Head exam: Present: atraumatic, normocephalic, normal inspection Eye exam: Present: normal appearance, EOMI Neck exam: Present: normal inspection. Absent: meningismus Respiratory exam: Present: normal lung sounds bilaterally. Absent: respiratory distress, wheezes, rales, rhonchi, stridor Cardiovascular Exam: Present: regular rate, normal rhythm, normal heart sounds. Absent: systolic murmur, diastolic murmur, rubs, gallop, clicks Neurological exam: Present: alert, oriented X3 Psychiatric exam: Present: normal affect, normal mood Skin exam: Present: warm, dry Course Vital Signs 03/22/24 00:59 Temperature 97.9 F Pulse Rate 112 H Respiratory 16 Rate Blood Pressure 136/103 O2 Sat by Pulse 100 Oximetry Medical Decision Making - Medical Decision Making Was pt. sent in by a medical professional or institution (, PA, ASSIGNER, urgent care, hospital, or fpc...) When possible be specific @ -[No] Did you speak to anyone other than the patient for history (EMS, parent, family, police, friend...)? What history was obtained from this source @ -[No] Did you review nursing and triage notes (agree or disagree)? Why? @ -[I reviewed and agree with nursing and triage notes] Were old charts reviewed (outside hosp., previous admission, EMS record, old EKG, old radiological studies, urgent care reports/EKG's, fpc records)? Report findings @ -[No old charts were reviewed] Differential Diagnosis (chest pain, altered mental status, abdominal pain women, abdominal pain men, vaginal bleeding, weakness, fever, dyspnea, syncope, headache, dizziness, GI bleed, back pain, seizure, CVA, palpatations, mental health, musculoskeletal)? @ -Differential includes COVID, influenza, RSV, pneumonia, bronchitis, asthma exacerbation, this is not an all-inclusive list EKG interpreted by me (3pts min.). @ -[As above] X-rays interpreted by me (1pt min.). @ -By my interpretation there is no acute process on chest x-ray CT interpreted by me (1pt min.). @ -[None done] U/S interpreted by me (1pt. min.). @ -[None done] What testing was considered but not performed or refused? (CT, X-rays, U/S, labs)? Why? @ -[None] What meds were considered but not given or refused? Why? @ -[None] Did you discuss the management of the patient with other professionals (professionals i.e. , PA, ASSIGNER, lab, RT, psych nurse, hospital social worker, trolley wire installer, teacher, chief innovation officer, patient case coordinator)? Give summary @ -[No] Was smoking cessation discussed for >3mins.? @ -[No] Was critical care preformed (if so, how long)? @ -[No] Were there social determinants of health that impacted care today? How? (Homelessness, low income, unemployed, alcoholism, drug addiction, transportation, low edu. Level, literacy, decrease access to med. care, [facility]p, rehab)? @ -[No] Was there de-escalation of care discussed even if they declined (Discuss DNR or withdrawal of care, Hospice)? DNR status @ -[No] What co-morbidities impacted this encounter? (DM, HTN, Smoking, COPD, CAD, Cancer, CVA, ARF, Chemo, Hep., AIDS, mental health diagnosis, sleep apnea, morbid obesity)? @ -[None] Was patient admitted / discharged? Hospital course, mention meds given and route, prescriptions, significant lab abnormalities, going to OR and other pertinent info. @ -33-year-old female with URI-like symptoms. History and physical examination are conducted. She is negative for COVID, influenza, RSV, group A strep. Chest x-ray shows no evidence of consolidation. Patient is educated on today's findings. She sent refills for her albuterol nebulizer and a 4-day course of prednisone. Follow-up with PCP. Report back to ER with any new or worsening symptoms. Discussed return parameters and answered all questions. Patient conveyed verbal understanding and agreed to the plan. I discussed this case in detail with my attending Dr. Borrego Undiagnosed new problem with uncertain prognosis? @ -[No] Drug Therapy requiring intensive monitoring for toxicity (Heparin, Nitro, Insulin, Cardizem)? @ -[No] Were any procedures done? @ -[No] Diagnosis/symptom? @ -URI Acute, or Chronic, or Acute on Chronic? @ -Acute Uncomplicated (without systemic symptoms) or Complicated (systemic symptoms)? @ -Uncomplicated Side effects of treatment? @ -[No] Exacerbation, Progression, or Severe Exacerbation? @ -[No] Poses a threat to life or bodily function? How? (Chest pain, [place], [place], pneumonia, PE, COPD, DKA, ARF, appy, cholecystitis, CVA, Diverticulitis, Homicidal, Suicidal, threat to staff... and all critical care pts) @ -Low likelihood - Lab Data Lab Results 03/22/24 03/22/24 Range/Units 01:10 01:10 Influenza Type A (PCR) Not Detected (Not Detectd) Influenza Type B (PCR) Not Detected (Not Detectd) RSV (PCR) Not Detected (Not Detectd) SARS-CoV-2 (PCR) Not Detected (Not Detectd) Group A Strep (PCR) NOT DETECTED (Not Detectd) Disposition Clinical Impression: Upper respiratory tract infection Disposition: HOME SELF-CARE Condition: Good Instructions (If sedation given, give patient instructions): Upper Respiratory Infection (ED) Additional Instructions: Follow-up with PCP. Report back to ER with any new or worsening symptoms. Prescriptions: predniSONE [Deltasone] 20 mg PO DAILY 4 Days #4 tab Albuterol Nebulized [Ventolin Nebulized] 2.5 mg INHALATION Q4H PRN 8 Days #150 ml PRN Reason: Shortness Of Breath Is patient prescribed a controlled substance at d/c from ED?: No Referrals: Evelyn Kaye FNPBC [Primary Care Provider] - 1-2 days Time of Disposition: 02:29
[2024-03-22 02:49] VITALS: BP 120/80; PULSE 90; RESP 18
--- NOTE | 2024-03-22 02:53 | XR ---
EXAM: XR Chest, 2 Views CLINICAL HISTORY: ITS.REASON XR Reason: cough TECHNIQUE: Frontal and lateral views of the chest. COMPARISON: 02/08/2023. FINDINGS: Lungs: Unremarkable. No consolidative changes. Pleural space: Unremarkable. No pneumothorax. No pleural effusions. Heart: Heart is normal in size. No cardiomegaly. Mediastinum: Unremarkable. Normal mediastinal contour. Bones/joints: Dextroscoliosis. The osseous structures and soft tissues are unremarkable. No acute fracture. IMPRESSION: No consolidative changes or pleural effusions, unchanged.
== END 2024-03-22 02:47 | disposition home or self-care (01) ==
LOC: EC 00:57
DX: J06.9 Acute upper respiratory infection, unspecified (principal); F17.290 Nicotine dependence, other tobacco product, uncomplicated; Z88.1 Allergy status to other antibiotic agents; Z88.2 Allergy status to sulfonamides; Z88.8 Allergy status to other drugs, medicaments and biological substances
CPT/HCPCS: 71046; 87636; 87651; 99284

== ENCOUNTER 2024-06-17 18:19 | Emergency (ER) | payer OTHER ==
[2024-06-17 18:25] VITALS: TEMP 98.2
--- NOTE | 2024-06-17 18:51 | ED ---
Abdominal Pain HPI - General Chief Complaint: Abdominal Pain Stated Complaint: Vaginal Bleeding 10 weeks Time Seen by Provider: 06/17/24 18:37 Source: patient, RN notes reviewed Mode of arrival: wheelchair Limitations: no limitations - History of Present Illness Initial Comments: This is a A4 33-year-old female, currently 10 weeks presenting for lower abdominal pain and bleeding starting earlier today. Patient endorses pain see 12/19) starting at 1300 this afternoon with subsequent vaginal bleeding starting at 1730. Patient states symptoms started as generalized fatigue yesterday. 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 Patient states she has not seen an OB, had an ultrasound for this pre gnancy or currently taking vitamins. Denies fever, chills, dizziness, chest pain, dyspnea, N/V/D. MD Complaint: abdominal pain Onset/Timin -: hour(s) Time: 13:00 Location: LLQ, RLQ Radiation: none Migration to: no migration Severity scale (1-10): 10 Quality: cramping, stabbing Consistency: constant Associated Symptoms: other (Fatigue) - Related Data Home Medications Medication Instructions Recorded Confirmed Albuterol Sulfate [Ventolin HFA] 1 - 2 puff INHALATION RT-Q6H PRN 12/21/18 02/24/23 Dextroamphetamine/Amphetamine 30 mg PO BID 02/08/23 02/24/23 [Adderall] Clotrimazole/Betameth Cream 1 applic TOPICAL BID 02/24/23 02/24/23 [Lotrisone] Ibuprofen [Motrin] 600 mg PO Q6HR PRN 02/24/23 02/24/23 dexAMETHasone [Decadron] 2 mg PO TID@1000,1800,0000 02/24/23 02/24/23 diazePAM [Diazepam] 2 mg PO BID 02/24/23 02/24/23 Previous Rx's Medication Instructions Recorded Amoxic-Pot Clav 875-125Mg 1 tab PO Q12HR 10 Days #20 tab 03/13/23 [Augmentin 875-125] clindamycin HCL 300 mg PO QID #40 cap 01/01/24 Albuterol Nebulized [Ventolin 2.5 mg INHALATION Q4H PRN 8 Days 03/22/24 Nebulized] #150 ml predniSONE [Deltasone] 20 mg PO DAILY 4 Days #4 tab 03/22/24 Allergies Allergy/AdvReac Type Severity Reaction Status Date / Time methylphenidate HCl Allergy Mild Unknown Verified 01/01/24 22:29 [From Metadate CD] cephalexin [From Keflex] Allergy Unknown Rash/Hives Verified 01/01/24 22:29 trimethoprim [From Bactrim] Allergy Unknown Rash/Hives Verified 01/01/24 22:29 azithromycin Allergy swelling Verified 01/01/24 22:29 of mouth ciprofloxacin [From Cipro] Allergy Rash/Hives Verified 01/01/24 22:29 ketorolac [From Toradol] Allergy Unknown Verified 01/01/24 22:29 sulfamethoxazole Allergy Rash/Hives Verified 01/01/24 22:29 [From Bactrim] Review of Systems ROS Statement: Those systems with pertinent positive or pertinent negative responses have been documented in the HPI. ROS Other: All systems not noted in ROS Statement are negative. Past Medical History Past Medical History: Asthma Additional Past Medical History / Comment(s): hypoglycemia, elevated liver enzymes, brain lesions History of Any Multi-Drug Resistant Organisms: None Reported Past Surgical History: Tonsillectomy Additional Past Surgical History / Comment(s): oral surgery Past Anesthesia/Blood Transfusion Reactions: No Reported Reaction Past Psychological History: ADD/ADHD, Anxiety, Bipolar, Depression Smoking Status: Vaper Past Alcohol Use History: None Reported Past Drug Use History: Marijuana - Past Family History Mother Family Medical History: Asthma, Thyroid Disorder General Exam Limitations: no limitations General appearance: alert, in distress (Patient is tearful) Head exam: Present: atraumatic, normocephalic, normal inspection Eye exam: Present: normal appearance, PERRL, EOMI. Absent: scleral icterus, conjunctival injection, periorbital swelling ENT exam: Present: normal exam, mucous membranes moist Neck exam: Present: normal inspection. Absent: tenderness, meningismus, lymphadenopathy Respiratory exam: Present: normal lung sounds bilaterally. Absent: respiratory distress, wheezes, rales, rhonchi, stridor, accessory muscle use, decreased breath sounds, prolonged expiratory Cardiovascular Exam: Present: regular rate, normal rhythm, normal heart sounds. Absent: systolic murmur, diastolic murmur, rubs, gallop, clicks GI/Abdominal exam: Present: soft, tenderness (Positive bilateral lower abdominal tenderness with voluntary guarding, especially right side), guarding, normal bowel sounds. Absent: distended, rebound, rigid Speculum exam: Present: vaginal bleeding (Ongoing slow flow of blood from close cervical os. No blood clots or obvious tissue/discharge) Extremities exam: Present: normal inspection, full ROM, normal capillary refill. Absent: tenderness, pedal edema, joint swelling, calf tenderness Back exam: Present: normal inspection Neurological exam: Present: alert, oriented X3, CN II-XII intact Psychiatric exam: Present: normal affect, normal mood Skin exam: Present: warm, dry, intact, normal color. Absent: rash Course Vital Signs 06/17/24 18:23 Temperature 98.2 F Pulse Rate 97 Respiratory 18 Rate Blood Pressure 133/96 O2 Sat by Pulse 100 Oximetry Medical Decision Making - Medical Decision Making Was pt. sent in by a medical professional or institution (, PA, [employer] ENGINEER, urgent care, hospital, or penitentiary...) When possible be specific @ -[No] Did you speak to anyone other than the patient for history (EMS, parent, family, police, friend...)? What history was obtained from this source @ -[No] Did you review nursing and triage notes (agree or disagree)? Why? @ -[I reviewed and agree with nursing and triage notes] Were old charts reviewed (outside hosp., previous admission, EMS record, old EKG, old radiological studies, urgent care reports/EKG's, penitentiary records)? Report findings @ -[No old charts were reviewed] Differential Diagnosis (chest pain, altered mental status, abdominal pain women, abdominal pain men, vaginal bleeding, weakness, fever, dyspnea, syncope, headache, dizziness, GI bleed, back pain, seizure, CVA, palpatations, mental health, musculoskeletal)? @ -Differential Abdominal Pain Women: Appendicitis, Cholecystitis, diverticulosis, ischemic bowel, pancreatitis, hepatitis, UTI, gastroenteritis, AAA, incarcerated hernia, bowel obstruction, constipation, inflammatory bowel, hepatitis, peptic ulcer disease, splenic infarction, perforated viscus, vulvitis, ovarian torsion, PID, kidney stone, placenta abruption, this is not meant to be an all-inclusive list EKG interpreted by me (3pts min.). @ -Not done X-rays interpreted by me (1pt min.). @ -[None done] CT interpreted by me (1pt min.). @ -[None done] U/S interpreted by me (1pt. min.). @ -[None done] What testing was considered but not performed or refused? (CT, X-rays, U/S, labs)? Why? @ -[None] What meds were considered but not given or refused? Why? @ -[None] Did you discuss the management of the patient with other professionals (professionals i.e. , PA, [employer] H[employer] ENGINEER, lab, RT, psych nurse, geriatric social worker, education instructor, teacher, finance officer, manager of case management)? Give summary @ -[No] Was smoking cessation discussed for >3mins.? @ -[No] Was critical care preformed (if so, how long)? @ -[No] Were there social determinants of health that impacted care today? How? (Homelessness, low income, unemployed, alcoholism, drug addiction, tr ansportation, low edu. Level, literacy, decrease access to med. care, long term, rehab)? @ -[No] Was there de-escalation of care discussed even if they declined (Discuss DNR or withdrawal of care, Hospice)? DNR status @ -[No] What co-morbidities impacted this encounter? (DM, HTN, Smoking, COPD, CAD, Canc er, CVA, ARF, Chemo, Hep., AIDS, mental health diagnosis, sleep apnea, morbid obesity)? @ -[None] Was patient admitted / discharged? Hospital course, mention meds given and route, prescriptions, significant lab abnormalities, going to OR and other pertinent info. @ -[hospital course] Undiagnosed new problem with uncertain prognosis? @ -[No] Drug Therapy requiring intensive monitoring for toxicity (Heparin, Nitro, Insulin, Cardizem)? @ -[No] Were any procedures done? @ -[No] Diagnosis/symptom? @ -[default] Acute, or Chronic, or Acute on Chronic? @ -Acute Uncomplicated (without systemic symptoms) or Complicated (systemic symptoms)? @ -Complicated Side effects of treatment? @ -[No] Exacerbation, Progression, or Severe Exacerbation? @ -[No] Poses a threat to life or bodily function? How? (Chest pain, USA, CT, pneumonia, PE, COPD, DKA, ARF, appy, cholecystitis, CVA, Diverticulitis, Homicidal, Suicidal, threat to staff... and all critical care pts) @ -[No] - Lab Data Result diagrams: 06/17/24 19:21 06/17/24 19:21 Lab Results 06/17/24 06/17/24 06/17/24 Range/Units 19:21 19:21 19:21 WBC 7.44 (4.50-10.00) 10*3/uL RBC 5.10 (4.10-5.20) 10*6/uL Hgb 15.1 H (12.0-15.0) g/dL Hct 44.5 (37.2-46.3) % MCV 87.3 (80.0-97.0) fL MCH 29.6 (27.0-32.0) pg MCHC 33.9 (32.0-37.0) g/dL Plt Count 255 (140-440) 10*3/uL MPV 11.4 (9.5-12.2) fL Immature Gran % (Auto) 0.8 % Neutrophils % 58.8 % Lymphocytes % 27.6 % Monocytes % 9.7 % Eosinophils % 2.3 % Basophils % 0.8 % Immature Gran # 0.06 H (0.00-0.04) 10*3/uL Neutrophils # 4.38 (1.80-7.70) 10*3/uL Lymphocytes # 2.05 (0.90-5.00) 10*3/uL Monocytes # 0.72 (0.20-1.00) 10*3/uL Eosinophils # 0.17 (0.04-0.35) 10*3/uL Basophils # 0.06 (0.00-0.10) 10*3/uL Sodium (137-145) mmol/L Potassium (3.5-5.1) mmol/L Chloride (98-107) mmol/L Carbon Dioxide (22-30) mmol/L Anion Gap mmol/L BUN (7-17) mg/dL Creatinine (0.52-1.04) mg/dL Est GFR (CKD-EPI)AfAm (>60 ml/min/1.73 sqM) Est GFR (CKD-EPI)NonAf (>60 ml/min/1.73 sqM) Glucose (74-99) mg/dL Calcium (8.4-10.2) mg/dL Total Bilirubin (0.2-1.3) mg/dL AST (14-36) U/L ALT (4-34) U/L Alkaline Phosphatase (38-126) U/L Total Protein (6.3-8.2) g/dL Albumin (3.5-5.0) g/dL Urine Color Light Red Urine Appearance Cloudy H (Clear) Urine pH 6.0 (5.0-8.0) Ur Specific [place] 1.028 (1.001-1.035) Urine Protein 1+ H (Negative) Urine Glucose (UA) Negative (Negative) Urine Ketones Negative (Negative) Urine Blood Large H (Negative) Urine Nitrite Negative (Negative) Urine Bilirubin Negative (Negative) Urine Urobilinogen <2.0 (<2.0) mg/dL Ur Leukocyte Esterase Trace H (Negative) Urine RBC >182 H (0-5) /hpf Urine WBC 11 H (0-5) /hpf Ur Squamous Epith Cells 15 H (0-4) /hpf Urine Mucus Many H (None) /hpf Urine HCG, Qual Detected (Not Detectd) Blood Type Blood Type Recheck Bld Type Recheck Status 06/17/24 06/17/24 Range/Units 19:21 19:21 WBC (4.50-10.00) 10*3/uL RBC (4.10-5.20) 10*6/uL Hgb (12.0-15.0) g/dL Hct (37.2-46.3) % MCV (80.0-97.0) fL MCH (27.0-32.0) pg MCHC (32.0-37.0) g/dL Plt Count (140-440) 10*3/uL MPV (9.5-12.2) fL Immature Gran % (Auto) % Neutrophils % % Lymphocytes % % Monocytes % % Eosinophils % % Basophils % % Immature Gran # (0.00-0.04) 10*3/uL Neutrophils # (1.80-7.70) 10*3/uL Lymphocytes # (0.90-5.00) 10*3/uL Monocytes # (0.20-1.00) 10*3/uL Eosinophils # (0.04-0.35) 10*3/uL Basophils # (0.00-0.10) 10*3/uL Sodium 134 L (137-145) mmol/L Potassium 4.5 (3.5-5.1) mmol/L Chloride 101 (98-107) mmol/L Carbon Dioxide 29 (22-30) mmol/L Anion Gap 4 mmol/L BUN 10 (7-17) mg/dL Creatinine 0.53 (0.52-1.04) mg/dL Est GFR (CKD-EPI)AfAm >90 (>60 ml/min/1.73 sqM) Est GFR (CKD-EPI)NonAf >90 (>60 ml/min/1.73 sqM) Glucose 96 (74-99) mg/dL Calcium 9.5 (8.4-10.2) mg/dL Total Bilirubin 0.5 (0.2-1.3) mg/dL AST 32 (14-36) U/L ALT 39 H (4-34) U/L Alkaline Phosphatase 69 (38-126) U/L Total Protein 7.2 (6.3-8.2) g/dL Albumin 4.3 (3.5-5.0) g/dL Urine Color Urine Appearance (Clear) Urine pH (5.0-8.0) Ur Specific [place] (1.001-1.035) Urine Protein (Negative) Urine Glucose (UA) (Negative) Urine Ketones (Negative) Urine Blood (Negative) Urine Nitrite (Negative) Urine Bilirubin (Negative) Urine Urobilinogen (<2.0) mg/dL Ur Leukocyte Esterase (Negative) Urine RBC (0-5) /hpf Urine WBC (0-5) /hpf Ur Squamous Epith Cells (0-4) /hpf Urine Mucus (None) /hpf Urine HCG, Qual (Not Detectd) Blood Type O Positive Blood Type Recheck O Pos Bld Type Recheck Status No Disposition Clinical Impression: Spontaneous Disposition: HOME SELF-CARE Condition: Good Instructions (If sedation given, give patient instructions): Miscarriage (ED) Additional Instructions: Follow-up with [employer]AK [employer] LOAD OPERATOR in the next 24 hours. Is patient prescribed a controlled substance at d/c from ED?: No Referrals: Serjio Lee MD [Primary Care Provider] - 1-2 days Nasra Vidal DO [Doctor of Osteopathic Medicine] - 1-2 days Time of Disposition: 20:40
[2024-06-17] MEDS: SODIUM CHLORIDE 0.9% 1,000 ML IV STA (19:22)
[2024-06-17] MEDS: ACETAMINOPHEN TAB 500 MG TAB PO STA (19:22)
[2024-06-17 19:34] LABS: Basophils # (A) 0.06 10*3/uL (0.00-0.10); Basophils % (A) 0.8 %; Eosinophils # (A) 0.17 10*3/uL (0.04-0.35); Eosinophils % (A) 2.3 %; HCT 44.5 % (37.2-46.3); HGB 15.1 g/dL (12.0-15.0); Lymphocytes # (A) 2.05 10*3/uL (0.90-5.00); Lymphocytes % (A) 27.6 %; MCH 29.6 pg (27.0-32.0); MCHC 33.9 g/dL (32.0-37.0); MCV 87.3 fL (80.0-97.0); Mean Platelet Volume 11.4 fL (9.5-12.2); Monocytes # (A) 0.72 10*3/uL (0.20-1.00); Monocytes % (A) 9.7 %; Neutrophils # (A) 4.38 10*3/uL (1.80-7.70); Neutrophils % (A) 58.8 %; Platelet Count 255 10*3/uL (140-440); RDW 13.2 % (11.5-14.5); WBC 7.44 10*3/uL (4.50-10.00)
[2024-06-17 19:45] LABS: Appearance,Urine Cloudy (Clear); Bilirubin,Urine Negative (Negative); Blood,Urine Large (Negative); Color,Urine Light Red; Glucose,Urine (UA) Negative (Negative); Ketones,Urine Negative (Negative); Leukocyte Esterase,Urine Trace (Negative); Mucus,Urine Many /hpf; Nitrite,Urine Negative (Negative); Protein,Urine 1+ (Negative); RBC,Urine >182 /hpf (0-5); Specific Gravity,Urine 1.028 (1.001-1.035); Squamous Epithelial Cell,Urine 15 /hpf (0-4); Urobilinogen,Urine <2.0 mg/dL (<2.0); WBC,Urine 11 /hpf (0-5)
[2024-06-17 20:09] LABS: ALT 39 U/L (4-34); AST 32 U/L (14-36); African American GFR (CKD) >90 (>60 ml/min/1.73 sqM); Albumin 4.3 g/dL (3.5-5.0); Alkaline Phosphatase 69 U/L (38-126); Anion Gap 4 mmol/L; Blood Urea Nitrogen 10 mg/dL (7-17); Calcium 9.5 mg/dL (8.4-10.2); Carbon Dioxide 29 mmol/L (22-30); Chloride 101 mmol/L (98-107); Glucose 96 mg/dL (74-99); Non-African American GFR(CKD) >90 (>60 ml/min/1.73 sqM); Potassium 4.5 mmol/L (3.5-5.1); Sodium 134 mmol/L (137-145); Total Bilirubin 0.5 mg/dL (0.2-1.3); Total Protein 7.2 g/dL (6.3-8.2)
--- NOTE | 2024-06-17 20:24 | US ---
EXAMINATION TYPE: Transabdominal DATE OF EXAM: 06/17/2024 8:10 PM COMPARISON: NONE CLINICAL INDICATION: Female, 33 years old with history of Bleed, pain, possible miscarriage; patient states bleeding and cramping hx miscarriages TECHNIQUE: Transabdominal (TA) with grayscale and color Doppler imaging including first trimester pre gnancy. FINDINGS: EXAM MEASUREMENTS: GESTATIONAL AGE / DATING Physician Established: Not yet established Dates by LMP: thinks it is 04/12/2024, (9 weeks/3 days) EDC: 01/17/2025 Dates by First Scan: No previous this is first scan ( weeks/ days) EDC: Dates by Current Scan for: CRL measuring 9 weeks 6 days, no heart tones seen MATERNAL ANATOMY Uterus: 11.6 x 6.2 x 7.2cm Right Ovary: obscured by gas Left Ovary: 2.2 x 1.7 x 1.5cm Post CDS / Adnexa: wnl Presence of free fluid: not seen Presence of corpus luteal cyst: not seen Presence of subchorionic bleed: not seen GESTATION / SURVEY CRL: 2.96 (9 weeks/6 days) Yolk Sac (normal less than 6mm): unable to visualize Cardiac Activity/Heart Rate: NA IUP: No cardiac activity noted on today's scan. Question demise. Date of LMP: thinks it was 04/12/2024 Beta HcG (if available): Not available at this time No color-flow or power Doppler flow identified within the embryo. IMPRESSION: Intrauterine with ultrasound age of 9 weeks 6 days. heart rate is not detected at thi s time, this is suspicious for failure but not diagnostic. Close clinical follow-up with se rial beta hCG and follow-up ultrasound at 7-14 days at recommended. [facility], , 06/17/2024 8:21 PM
[2024-06-17] MEDS: HYDROmorphone 1 MG/ML 1 ML SYRINGE IVP STA (20:36)
[2024-06-17] MEDS: ACET/COD 300 MG/30 MG STARTER PACK 6 TAB BTL PO STA (21:29)
[2024-06-17 21:35] VITALS: BP 131/73; PULSE 86; RESP 17
== END 2024-06-17 21:37 | disposition home or self-care (01) ==
LOC: EC 18:19
DX: O20.0 Threatened abortion (principal); O99.331 Smoking (tobacco) complicating pregnancy, first trimester; F17.290 Nicotine dependence, other tobacco product, uncomplicated; Z88.2 Allergy status to sulfonamides; Z88.6 Allergy status to analgesic agent; Z88.8 Allergy status to other drugs, medicaments and biological substances
CPT/HCPCS: 36415; 86900; 86901; 80053; 85025; 81001; 81025; 84702; 87086; 76801; 99284; 96374; 96361; J1171

== ENCOUNTER 2024-07-03 19:32 | Emergency (ER) | payer OTHER ==
[2024-07-03 19:36] VITALS: BP 125/85; PULSE 93; RESP 18; TEMP 98
== END 2024-07-03 19:58 | disposition left against medical advice (07) ==
LOC: EC 19:32
DX: Z53.29 Procedure and treatment not carried out because of patient's decision for other reasons (principal)
CPT/HCPCS: 99499